=== PATIENT | male | born 1940 | race Caucasian/White ===

== ENCOUNTER → 2019-01-06 11:39 | Outpatient (CLI) | payer MEDICARE, OTHER, SELFPAY ==
--- NOTE | 2019-01-06 | DI.RAD.S_ITS ---
PROCEDURE: XR KNEE RT 3V INDICATIONS: Right knee pain TECHNIQUE: 3 views of the knee were acquired. COMPARISON: [facility], , KNEE 3V RIGHT, 03/09/2015, 11:40. FINDINGS: Bones: No fractures or dislocations. No suspicious bony lesions. 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 There is chondrocalcinosis. Osteopenia. Soft tissues: Moderate joint effusion. Vascular calcifications consistent with atherosclerosis. IMPRESSION: 1. Severe knee joint degeneration, most pronounced at the patellar femoral compartment. 2. Chondrocalcinosis. Differential diagnosis include CPPD and hyperparathyroidism. 3. Osteopenia. Dictated by: Hal Dave M.D. on 01/06/2019 at 13:11 Approved by: Hal Dave M.D. on 01/06/2019 at 13:14
== END ==
PROVIDERS: PCP Family Medicine; Visit Provider Family Medicine
DX: M25.561 Pain in right knee (principal); M17.11 Unilateral primary osteoarthritis, right knee; M11.261 Other chondrocalcinosis, right knee; M85.861 Other specified disorders of bone density and structure, right lower leg
CPT/HCPCS: 73562

== ENCOUNTER → 2019-04-21 09:04 | Outpatient (CLI) | payer MEDICARE, OTHER, SELFPAY ==
[2019-04-21 10:08] LABS: Cholesterol 127 mg/dL (140-199); HDL Cholesterol 36 mg/dL (40-60); LDL Cholesterol Calculated 71 mg/dL (<100); Triglycerides 99 mg/dL (35-150)
== END ==
PROVIDERS: PCP Family Medicine; Referring Provider Hospitalist; Visit Provider Hospitalist
DX: I25.10 Atherosclerotic heart disease of native coronary artery without angina pectoris (principal); E78.00 Pure hypercholesterolemia, unspecified
CPT/HCPCS: 36415; 80061

== ENCOUNTER 2019-04-28 11:15 | Outpatient (RCR) | payer MEDICARE, OTHER, SELFPAY ==
--- NOTE | 2019-02-22 17:54 | PT.OIE ---
Current Diagnoses Patellar tendinitis, right knee (02/22/19) Other specified enthesopathies of right lower limb, excluding foot (02/22/19) Visit Care Team Role Provider Type Eliseo Dixon MD Attending Provider Physician Primary Care Provider Specialty: [facility] Address: [address] [place] [address], [facility] [place], [address] Email: [email or web address] Physical Therapy Initial Evaluation PT-OP-A Visit Information Start: 02/22/19 16:11 Freq: Status: Active Protocol: Document 02/22/19 14:35 HH (Rec: 02/22/19 16:48 HH [email or web address]) Out-Patient Physical Therapy Visit Information Visit Information Visit Type Initial Evaluation Visit Start Time 14:35 Visit Stop Time 15:15 Total Visit Minutes 40 Visit Number 03/14 Number of BOTTOM PRESSER Visits 0 Evaluation Information Evaluation Date 02/22/19 PT-OP-B Current Condition Start: 02/22/19 16:11 Freq: Status: Active Protocol: Document 02/22/19 14:35 HH (Rec: 02/22/19 16:48 HH [email or web address]) Current Condition History of Current Condition Onset Date 3 years ago Current Complaints R knee pain, difficulty in prolonged walking, walking incline/decline. History of Current Condition Pt is a 78yo male presenting to clinic with chronic L knee pain started years ago. Pt does not recall any significant injury but stated his R knee pain started somewhere 3 years ago. He described his pain located below his knee cap and at the joint line sometimes, and felt like sharp pain as got hitting by a chair. His pain has been getting more significant and noticeable within the past year that is the most irritated after prolonged walking/ walking up or downhill. Pt has been marijuana oil/lotion at his R knee and it seems to help him a lot. Pt saw his Dr. Nguyen who believes pt has patella tendinitis. He also received X -ray screen which shows severe patellofemoral joint degeneration, chondrocalanosis and osteopenia. Prior Treatments and Tests X-ray screen which shows severe patellofemoral joint degeneration, chondrocalanosis and osteopenia. Treatment Goals Patient/Caregiver Goals 1. To walk his dog 3x/day up to 10k steps without any knee discomfort 2. Able to climb stairs/ up or downhill without knee discomfort. Personal Factors Other Personal Factors That May Effect HTN Therapy/Recovery Previous heart attack. PT-OP-C Subjective Start: 02/22/19 16:11 Freq: Status: Active Protocol: Document 02/22/19 14:35 HH (Rec: 02/22/19 16:48 HH [email or web address]) OP-PT Subjective Patient Comments Patient Comments I just want to keep my mobility as much as i can until 89 yo. Patient Questionnaires Lower Extremity Functional Scale LEFS Score 44 LEFS Impairment 40 to 59% Impaired (Score 32- 47) OP-PT Pain Assessment Location joint line Pain Location Details R knee joint Intensity 4 Scale Used Numeric (1 - 10) Description Aching,Dull Frequency Frequent Pain Aggravating Factors Exercise,Walking,Stair Climbing Pain Alleviating Factors Inactivity R patellar tendon Intensity 4 Scale Used Numeric (1 - 10) Description Aching,Dull Frequency Frequent Pain Aggravating Factors Exercise,Walking,Stair Climbing Pain Alleviating Factors Inactivity PT-OP-D Balance Start: 02/22/19 16:11 Freq: Status: Active Protocol: Document 02/22/19 14:35 HH (Rec: 02/22/19 16:48 HH [email or web address]) Balance Tests Single Limb Standing Single Limb- Right 20s Single Limb- Left 18s PT-OP-F Manual Assessment Start: 02/22/19 16:11 Freq: Status: Active Protocol: Document 02/22/19 14:35 HH (Rec: 02/22/19 16:48 HH [email or web address]) Manual Assessments Soft Tissue Assessment Soft Tissue Mobility Assessment tenderness to pressure at R lateral knee joint line and proximal patellar tendon insertion PT-OP-G Mobility & Gait Start: 02/22/19 16:11 Freq: Status: Active Protocol: Document 02/22/19 14:35 HH (Rec: 02/22/19 16:48 HH [email or web address]) OP Gait Assessment Comments Gait Comments decreased R foot pronation during midstance compared to L . PT-OP-H Neuro Start: 02/22/19 16:11 Freq: Status: Active Protocol: Document 02/22/19 14:35 HH (Rec: 02/22/19 16:48 HH [email or web address]) Deep Tendon Reflex & Clonus Assessment Deep Tendon Reflex Bilateral Achilles Deep Tendon Reflex 2+ Normal Bilateral Patellar Deep Tendon Reflex 2+ Normal PT-OP-J Posture/Palpation/Skin Start: 02/22/19 16:11 Freq: Status: Active Protocol: Document 02/22/19 14:35 HH (Rec: 02/22/19 16:48 [email or web address]) Posture Evaluation Position Standing Weight Distribution Weight Shifted Left Knee Posture (R) Genu Varus,(R) Excess Flexion Ankle/Foot Posture (R) Supinated Foot Arch (R) High Arch PT-OP-K Range of Motion Start: 02/22/19 16:11 Freq: Status: Active Protocol: Document 02/22/19 14:35 HH (Rec: 02/22/19 16:48 [email or web address]) Knee Goniometric Range of Motion Knee Left Knee ROM WFL Yes Patient Position Supine Flexion Active (degrees) 140 Extension Active (degrees) 2 Right Knee ROM WFL No Patient Position Supine Flexion Active (degrees) 135 Extension Active (degrees) 5 Knee ROM Limitations Knee ROM Limitations Pain Comments Pt reports increased discomfort and pressure at end range knee flexion and extension PT-OP-L Special Tests Start: 02/22/19 16:11 Freq: Status: Active Protocol: Document 02/22/19 14:35 HH (Rec: 02/22/19 16:48 [email or web address]) Special Tests Knee Special Tests Apley's Compression Test Results +ve R Comments lateral knee joint line pain with compression increased lateral knee joint line pain with compression + tibial ER Daniel's Sign Test Results +VE R Comments without quad contraction. Varus- 25 Degrees Test Results -ve B Varus- 0 Degrees Test Results -ve B Valgus- 25 Degrees Test Results -ve B Valgus- 0 Degrees Test Results -ve B PT-OP-M Strength Start: 02/22/19 16:11 Freq: Status: Active Protocol: Document 02/22/19 14:35 HH (Rec: 02/22/19 16:48 [email or web address]) Hip Strength Hip Manual Muscle Testing Right Flexion (L2) 5 Normal Extension (S1) 5 Normal Abduction 4+ Good+ Adduction 5 Normal Left Flexion (L2) 5 Normal Extension (S1) 5 Normal Abduction 5 Normal Adduction 5 Normal Knee Strength Knee Manual Muscle Testing Right Flexion (S2) 4+ Good+ Extension (L3) 4+ Good+ Comments did not c/o discomfort Left Flexion (S2) 4+ Good+ Extension (L3) 4+ Good+ Comments did not c/o discomfort PT-OP-Q Treatments Start: 02/22/19 16:11 Freq: Status: Active Protocol: Document 02/22/19 14:35 HH (Rec: 02/22/19 17:54 HH [email or web address]) Self-Care/Home Management Treatment Education Patient Education Body Mechanics,Posture Caregiver Education education on pt's current posture effect on mechanical pressure on R lateral knee joint compartment. PT-OP-T Assessment and Plan Start: 02/22/19 16:11 Freq: Status: Active Protocol: Document 02/22/19 14:35 HH (Rec: 02/22/19 16:48 HH [email or web address]) Physical Therapy Assessment Rehab Potential Rehabilitation Potential Excellent Evaluation Complexity Number of Personal Factors/Comorbidities 0 Number of Body Systems Impaired 1-2 Clinical Presentation at Evaluation Stable Impairments Impairments Functional Mobility,Gait,Pain, Posture,ROM,Soft Tissue Mobility,Strength Goals activity tolerance Impairment Unable to walk his dog 3x/day or 10k steps a day without pain Short Term Goal (STG) Pt will be able to walk his dog 3x/day with his dog or 10k steps a day with R knee pain no more than 4/10. STG Duration 4 weeks Cleaning Handyman Goal (LTG) Pt will be able to walk his dog 3x/day with his dog or 10k steps a day with R knee pain no more than 2/10. LTG Duration 8 weeks ROM Impairment Pt lacks of 5 degrees R knee extension and flexion Intermediate Goal (LTG) Pt will be able to reach 2 degrees for R knee extension and 140 for R knee flexion to improve his gait quality, especially during initial contact. LTG Duration 8 weeks LEFS Impairment Pt scores 44/80 for LEFS Short Term Goal (STG) Pt will score >48 (20-39% impairment) to improve his quality of life STG Duration 4 weeks Intermediate Goal (LTG) Pt will score >62 (1-19% impairment) to improve his quality of life LTG Duration 8 weeks Assessment Summary Assessment pt is a 78yo male presented to clinic with chronic R knee pain. X-ray from December shows severe patellofemoral joint degerneration, chondrocalcanosis and Osteopenia. Upon assessment, pt appears to have symmetrical and WFL hip and knee muscle strength and single leg balance. Postural assessment shows R knee valgus with lack of R knee extension in standing position, along with increased WB on lateral side of R foot (in supinated position), which leads to his gait with insufficient R foot pronation during midstance. He has limited R knee AROM (5- 135 degrees) , L = 2-140 degrees. His R lateral joint line pain was also reproduced with Appley's compression test and patellofemoral pain from Alejandro's test which both indicate possible degenerative joint changes. Pt will benefit from skilled therapy to restore his R knee ROM, gait efficiency and B LE strength in order to return to his daily 10k steps routine in pain free. Physical Therapy Plan Frequency and Duration Frequency of Treatment 2x/Week Duration of Treatment 8 weeks Plan of Care Start Date 02/22/19 Plan of Care End Date 04/23/19 Therapeutic Interventions Therapeutic Interventions Balance Training,Coordination Training,Gait Training,Home Exercise Program,Joint Mobilizations,Manual Therapy, Neuromuscular Re-education, Patient/Caregiver Education, Self-Care/Home Management,Soft Tissue Mobilization,Taping, Therapeutic Activities, Therapeutic Exercises Modalities Cold Pack/Ice Massage,Electric Stimulation,Hot Packs, Infrared Therapy,Ultrasound Next Visit Focus/Plan Next Note Type Treatment Note Next Visit Plan reassess ankle ROM and hip ROM check shoeswear, patellar grind R knee TKE and flexion 6MWT
--- NOTE | 2019-02-22 17:54 | PT.OPPOC ---
Physical, Occupational & Speech Therapy At [facility] Current Diagnoses Patellar tendinitis, right knee (02/22/19) Other specified enthesopathies of right lower limb, excluding foot (02/22/19) Visit Care Team Role Provider Type Eliseo Dixon MD Attending Provider Physician Primary Care Provider Specialty: [facility] Address: [address] [place] [address], [facility] [place], [place], [facility] Email: [email or web address] Plan Of Care PT-OP-T Assessment and Plan Start: 02/22/19 16:11 Freq: Status: Active Protocol: Document 02/22/19 14:35 HH (Rec: 02/22/19 16:48 HH [email or web address]) Physical Therapy Assessment Rehab Potential Rehabilitation Potential Excellent Evaluation Complexity Number of Personal Factors/Comorbidities 0 Number of Body Systems Impaired 1-2 Clinical Presentation at Evaluation Stable Impairments Impairments Functional Mobility,Gait,Pain, Posture,ROM,Soft Tissue Mobility,Strength Goals activity tolerance Impairment Unable to walk his dog 3x/day or 10k steps a day without pain Short Term Goal (STG) Pt will be able to walk his dog 3x/day with his dog or 10k steps a day with R knee pain no more than 4/10. STG Duration 4 weeks Snf Goal (LTG) Pt will be able to walk his dog 3x/day with his dog or 10k steps a day with R knee pain no more than 2/10. LTG Duration 8 weeks ROM Impairment Pt lacks of 5 degrees R knee extension and flexion Snf Goal (LTG) Pt will be able to reach 2 degrees for R knee extension and 140 for R knee flexion to improve his gait quality, especially during initial contact. LTG Duration 8 weeks LEFS Impairment Pt scores 44/80 for LEFS Short Term Goal (STG) Pt will score >48 (20-39% impairment) to improve his quality of life STG Duration 4 weeks Cloth Cutting Machine Operator Goal (LTG) Pt will score >62 (1-19% impairment) to improve his quality of life LTG Duration 8 weeks Assessment Summary Assessment pt is a 78yo male presented to clinic with chronic R knee pain. X-ray from December shows severe patellofemoral joint degerneration, chondrocalcanosis and Osteopenia. Upon assessment, pt appears to have symmetrical and WFL hip and knee muscle strength and single leg balance. Postural assessment shows R knee valgus with lack of R knee extension in standing position, along with increased WB on lateral side of R foot (in supinated position), which leads to his gait with insufficient R foot pronation during midstance. He has limited R knee AROM (5- 135 degrees) , L = 2-140 degrees. His R lateral joint line pain was also reproduced with Appley's compression test and patellofemoral pain from Alejandro's test which both indicate possible degenerative joint changes. Pt will benefit from skilled therapy to restore his R knee ROM, gait efficiency and B LE strength in order to return to his daily 10k steps routine in pain free. Physical Therapy Plan Frequency and Duration Frequency of Treatment 2x/Week Duration of Treatment 8 weeks Plan of Care Start Date 02/22/19 Plan of Care End Date 04/23/19 Therapeutic Interventions Therapeutic Interventions Balance Training,Coordination Training,Gait Training,Home Exercise Program,Joint Mobilizations,Manual Therapy, Neuromuscular Re-education, Patient/Caregiver Education, Self-Care/Home Management,Soft Tissue Mobilization,Taping, Therapeutic Activities, Therapeutic Exercises Modalities Cold Pack/Ice Massage,Electric Stimulation,Hot Packs, Infrared Therapy,Ultrasound Next Visit Focus/Plan Next Note Type Treatment Note Next Visit Plan reassess ankle ROM and hip ROM check shoeswear, patellar grind R knee TKE and flexion 6MWT Plan of Care Dates Plan of Care Start Date 02/22/19 Plan of Care End Date 04/23/19 Electronically Signed by: Doug Ayers PT 02/22/19 [id number] Please Sign and Return: I have reviewed this Plan of Care and certify that the skilled therapy services above are required to meet the patient?s needs. Physician Signature Date Printed Name and Credentials Clinical Instructor Signature Printed Name and Credentials
--- NOTE | 2019-02-25 16:23 | PT.OTN ---
Current Diagnoses Patellar tendinitis, right knee (02/25/19) Other specified enthesopathies of right lower limb, excluding foot (02/25/19) Physical Therapy Treatment Note PT-OP-A Visit Information Start: 02/22/19 16:11 Freq: Status: Active Protocol: Document 02/25/19 14:34 HH (Rec: 02/25/19 16:23 [id number]) Out-Patient Physical Therapy Visit Information Visit Information Visit Type Treatment Note Visit Start Time 14:34 Visit Stop Time 15:15 Total Visit Minutes 41 Visit Number 04/14 Number of FOOD QUALITY TECHNICIAN Visits 0 PT-OP-B Current Condition Start: 02/22/19 16:11 Freq: Status: Active Protocol: Document 02/22/19 14:35 HH (Rec: 02/22/19 16:48 HH [email or web address]) Current Condition History of Current Condition Onset Date 3 years ago Current Complaints R knee pain, difficulty in prolonged walking, walking incline/decline. History of Current Condition Pt is a 78yo male presenting to clinic with chronic L knee pain started years ago. Pt does not recall any significant injury but stated his R knee pain started somewhere 3 years ago. He described his pain located below his knee cap and at the joint line sometimes, and felt like sharp pain as got hitting by a chair. His pain has been getting more significant and noticeable within the past year that is the most irritated after prolonged walking/ walking up or downhill. Pt has been marijuana oil/lotion at his R knee and it seems to help him a lot. Pt saw his Dr. Nguyen who believes pt has patella tendinitis. He also received X -ray screen which shows severe patellofemoral joint degeneration, chondrocalanosis and osteopenia. Prior Treatments and Tests X-ray screen which shows severe patellofemoral joint degeneration, chondrocalanosis and osteopenia. Treatment Goals Patient/Caregiver Goals 1. To walk his dog 3x/day up to 10k steps without any knee discomfort 2. Able to climb stairs/ up or downhill without knee discomfort. Personal Factors Other Personal Factors That May Effect HTN Therapy/Recovery Previous heart attack. PT-OP-C Subjective Start: 02/22/19 16:11 Freq: Status: Active Protocol: Document 02/25/19 14:34 HH (Rec: 02/25/19 16:23 [id number]) OP-PT Subjective Patient Comments Patient Comments I was walking up and downhill today and it bothers my R knee PT-OP-D Balance Start: 02/22/19 16:11 Freq: Status: Active Protocol: Document 02/22/19 14:35 HH (Rec: 02/22/19 16:48 [email or web address]) Balance Tests Single Limb Standing Single Limb- Right 20s Single Limb- Left 18s PT-OP-F Manual Assessment Start: 02/22/19 16:11 Freq: Status: Active Protocol: Document 02/22/19 14:35 HH (Rec: 02/22/19 16:48 HH [email or web address]) Manual Assessments Soft Tissue Assessment Soft Tissue Mobility Assessment tenderness to pressure at R lateral knee joint line and proximal patellar tendon insertion PT-OP-G Mobility & Gait Start: 02/22/19 16:11 Freq: Status: Active Protocol: Document 02/22/19 14:35 HH (Rec: 02/22/19 16:48 [email or web address]) OP Gait Assessment Comments Gait Comments decreased R foot pronation during midstance compared to L . PT-OP-H Neuro Start: 02/22/19 16:11 Freq: Status: Active Protocol: Document 02/22/19 14:35 HH (Rec: 02/22/19 16:48 [email or web address]) Deep Tendon Reflex & Clonus Assessment Deep Tendon Reflex Bilateral Achilles Deep Tendon Reflex 2+ Normal Bilateral Patellar Deep Tendon Reflex 2+ Normal PT-OP-J Posture/Palpation/Skin Start: 02/22/19 16:11 Freq: Status: Active Protocol: Document 02/22/19 14:35 HH (Rec: 02/22/19 16:48 [email or web address]) Posture Evaluation Position Standing Weight Distribution Weight Shifted Left Knee Posture (R) Genu Varus,(R) Excess Flexion Ankle/Foot Posture (R) Supinated Foot Arch (R) High Arch PT-OP-K Range of Motion Start: 02/22/19 16:11 Freq: Status: Active Protocol: Document 02/25/19 14:34 HH (Rec: 02/25/19 16:23 [id number]) Hip Goniometric Range of Motion Hip Right Active Internal Rotation 35 External Rotation 45 Left Active Internal Rotation 45 External Rotation 42 Hip ROM Limitations Hip ROM Limitations Muscle Tone,Pain Comments muscle guarding and pain at end range of L hip IR. PT-OP-L Special Tests Start: 02/22/19 16:11 Freq: Status: Active Protocol: Document 02/25/19 14:34 (Rec: 02/25/19 16:23 [email or web address]) Special Tests Foot/Ankle Special Tests calf raise Test Results SL calf raise L=21reps, R= 12reps PT-OP-M Strength Start: 02/22/19 16:11 Freq: Status: Active Protocol: Document 02/22/19 14:35 HH (Rec: 02/22/19 16:48 [email or web address]) Hip Strength Hip Manual Muscle Testing Right Flexion (L2) 5 Normal Extension (S1) 5 Normal Abduction 4+ Good+ Adduction 5 Normal Left Flexion (L2) 5 Normal Extension (S1) 5 Normal Abduction 5 Normal Adduction 5 Normal Knee Strength Knee Manual Muscle Testing Right Flexion (S2) 4+ Good+ Extension (L3) 4+ Good+ Comments did not c/o discomfort Left Flexion (S2) 4+ Good+ Extension (L3) 4+ Good+ Comments did not c/o discomfort PT-OP-Q Treatments Start: 02/22/19 16:11 Freq: Status: Active Protocol: Document 02/25/19 14:34 (Rec: 02/25/19 16:23 [email or web address]) Therapeutic Exercises Supine Exercises SLR Supine Exercise Name R foot turning machine operator Side right Reps/Minutes 8 x2 Comments cues on hip add and vmo contractoin Prone Exercises quad stretch Side right Equipment Used belt Reps/Minutes 30 secs x 5 Hip IR Prone Exercise Name AROM hip IR Side right Reps/Minutes 12 x2 Standing Exercises calf raises Standing Exercise Name B concentric calf raise and single leg eccentric descent Side right Equipment Used stair Reps/Minutes 10 x 2 Manual Therapy Treatment Soft Tissue Mobilization R quad Mobilization Type Sustained Pressure,Trigger Point Release Intensity/Depth Moderate Body Position Standing Comments f/b quad stretch with MET R gluteal Mobilization Type Sustained Pressure,Trigger Point Release Intensity/Depth Moderate Body Position Prone Comments f/b MET hip IR and ER PT-OP-T Assessment and Plan Start: 02/22/19 16:11 Freq: Status: Active Protocol: Document 02/25/19 14:34 (Rec: 02/25/19 16:23 [email or web address]) Physical Therapy Assessment Goals activity tolerance Impairment Unable to walk his dog 3x/day or 10k steps a day without pain Short Term Goal (STG) Pt will be able to walk his dog 3x/day with his dog or 10k steps a day with R knee pain no more than 4/10. STG Duration 4 weeks Fpc Goal (LTG) Pt will be able to walk his dog 3x/day with his dog or 10k steps a day with R knee pain no more than 2/10. LTG Duration 8 weeks ROM Impairment Pt lacks of 5 degrees R knee extension and flexion Form Tamper Goal (LTG) Pt will be able to reach 2 degrees for R knee extension and 140 for R knee flexion to improve his gait quality, especially during initial contact. LTG Duration 8 weeks LEFS Impairment Pt scores 44/80 for LEFS Short Term Goal (STG) Pt will score >48 (20-39% impairment) to improve his quality of life STG Duration 4 weeks Form Tamper Goal (LTG) Pt will score >62 (1-19% impairment) to improve his quality of life LTG Duration 8 weeks Assessment Summary Assessment Cont assessment. Pt has limited R hip IR with noticeable pain at end range and significant muscle wekaness at R calfs which indicate his strength of medial muscle line strength deficiency (hip add, medial quad and medial calf.) Physical Therapy Plan Next Visit Focus/Plan Next Note Type Treatment Note Next Visit Plan assess tx tolerance medial line strengthening. hip IR strengthening R knee TKE.
--- NOTE | 2019-03-01 15:26 | PT.OTN ---
Current Diagnoses Patellar tendinitis, right knee (03/01/19) Other specified enthesopathies of right lower limb, excluding foot (03/01/19) Physical Therapy Treatment Note PT-OP-A Visit Information Start: 02/22/19 16:11 Freq: Status: Active Protocol: Document 03/01/19 14:32 HH (Rec: 03/01/19 15:26 HH [email or web address]) Out-Patient Physical Therapy Visit Information Visit Information Visit Type Treatment Note Visit Start Time 14:32 Visit Stop Time 15:15 Total Visit Minutes 43 Visit Number 05/12 Number of DINKEY MOTOR OPERATOR Visits 0 PT-OP-B Current Condition Start: 02/22/19 16:11 Freq: Status: Active Protocol: Document 02/22/19 14:35 HH (Rec: 02/22/19 16:48 HH [email or web address]) Current Condition History of Current Condition Onset Date 3 years ago Current Complaints R knee pain, difficulty in prolonged walking, walking incline/decline. History of Current Condition Pt is a 78yo male presenting to clinic with chronic L knee pain started years ago. Pt does not recall any significant injury but stated his R knee pain started somewhere 3 years ago. He described his pain located below his knee cap and at the joint line sometimes, and felt like sharp pain as got hitting by a chair. His pain has been getting more significant and noticeable within the past year that is the most irritated after prolonged walking/ walking up or downhill. Pt has been marijuana oil/lotion at his R knee and it seems to help him a lot. Pt saw his Dr. Nguyen who believes pt has patella tendinitis. He also received X -ray screen which shows severe patellofemoral joint degeneration, chondrocalanosis and osteopenia. Prior Treatments and Tests X-ray screen which shows severe patellofemoral joint degeneration, chondrocalanosis and osteopenia. Treatment Goals Patient/Caregiver Goals 1. To walk his dog 3x/day up to 10k steps without any knee discomfort 2. Able to climb stairs/ up or downhill without knee discomfort. Personal Factors Other Personal Factors That May Effect HTN Therapy/Recovery Previous heart attack. PT-OP-C Subjective Start: 02/22/19 16:11 Freq: Status: Active Protocol: Document 03/01/19 14:32 HH (Rec: 03/01/19 15:26 HH [email or web address]) OP-PT Subjective Patient Comments Patient Comments Nicole been doing my exercises. Terminal knee extension tends to bother my knee and my R calf tends to fatigue quite fast. Im still walking my dog 3x/day but I only felt discomfort once during the past few days. Patient Reported Progress Improving PT-OP-D Balance Start: 02/22/19 16:11 Freq: Status: Active Protocol: Document 02/22/19 14:35 HH (Rec: 02/22/19 16:48 HH [email or web address]) Balance Tests Single Limb Standing Single Limb- Right 20s Single Limb- Left 18s PT-OP-F Manual Assessment Start: 02/22/19 16:11 Freq: Status: Active Protocol: Document 02/22/19 14:35 HH (Rec: 02/22/19 16:48 HH [email or web address]) Manual Assessments Soft Tissue Assessment Soft Tissue Mobility Assessment tenderness to pressure at R lateral knee joint line and proximal patellar tendon insertion PT-OP-G Mobility & Gait Start: 02/22/19 16:11 Freq: Status: Active Protocol: Document 02/22/19 14:35 HH (Rec: 02/22/19 16:48 HH [email or web address]) OP Gait Assessment Comments Gait Comments decreased R foot pronation during midstance compared to L . PT-OP-H Neuro Start: 02/22/19 16:11 Freq: Status: Active Protocol: Document 02/22/19 14:35 HH (Rec: 02/22/19 16:48 HH [email or web address]) Deep Tendon Reflex & Clonus Assessment Deep Tendon Reflex Bilateral Achilles Deep Tendon Reflex 2+ Normal Bilateral Patellar Deep Tendon Reflex 2+ Normal PT-OP-J Posture/Palpation/Skin Start: 02/22/19 16:11 Freq: Status: Active Protocol: Document 02/22/19 14:35 HH (Rec: 02/22/19 16:48 HH [email or web address]) Posture Evaluation Position Standing Weight Distribution Weight Shifted Left Knee Posture (R) Genu Varus,(R) Excess Flexion Ankle/Foot Posture (R) Supinated Foot Arch (R) High Arch PT-OP-K Range of Motion Start: 02/22/19 16:11 Freq: Status: Active Protocol: Document 02/25/19 14:34 HH (Rec: 02/25/19 16:23 HH [id number]) Hip Goniometric Range of Motion Hip Right Active Internal Rotation 35 External Rotation 45 Left Active Internal Rotation 45 External Rotation 42 Hip ROM Limitations Hip ROM Limitations Muscle Tone,Pain Comments muscle guarding and pain at end range of L hip IR. PT-OP-L Special Tests Start: 02/22/19 16:11 Freq: Status: Active Protocol: Document 02/25/19 14:34 HH (Rec: 02/25/19 16:23 HH [id number]) Special Tests Foot/Ankle Special Tests calf raise Test Results SL calf raise L=21reps, R= 12reps PT-OP-M Strength Start: 02/22/19 16:11 Freq: Status: Active Protocol: Document 02/22/19 14:35 HH (Rec: 02/22/19 16:48 HH [email or web address]) Hip Strength Hip Manual Muscle Testing Right Flexion (L2) 5 Normal Extension (S1) 5 Normal Abduction 4+ Good+ Adduction 5 Normal Left Flexion (L2) 5 Normal Extension (S1) 5 Normal Abduction 5 Normal Adduction 5 Normal Knee Strength Knee Manual Muscle Testing Right Flexion (S2) 4+ Good+ Extension (L3) 4+ Good+ Comments did not c/o discomfort Left Flexion (S2) 4+ Good+ Extension (L3) 4+ Good+ Comments did not c/o discomfort PT-OP-Q Treatments Start: 02/22/19 16:11 Freq: Status: Active Protocol: Document 03/01/19 14:32 HH (Rec: 03/01/19 15:26 HH [email or web address]) Cardio Equipment Bicycle (Upright) Duration (Minutes) 6 Resistance 5 Therapeutic Exercises Supine Exercises ball squeeze Supine Exercise Name bridging with ball squeeze Side bilateral Reps/Minutes 5s hold at top x 8 x2 SLR Supine Exercise Name R foot turning lathe tender Side right Reps/Minutes 8 x2 Comments cues on hip add and vmo contractoin Prone Exercises quad stretch Side right Equipment Used PT's assistance Reps/Minutes 30 secs x 5 Hip IR Prone Exercise Name AROM hip IR with manual resistance Side right Reps/Minutes 8 x3 Manual Therapy Treatment Soft Tissue Mobilization R lateral quad, HS, IT band Body Location w/ rolling pin Mobilization Type Rolling Intensity/Depth Moderate Body Position Sidelying Comments tenderness to pressure noted at R lateral quad/ HS R quad Mobilization Type Sustained Pressure,Trigger Point Release Intensity/Depth Moderate Body Position Standing Comments f/b quad stretch with MET Joint Mobilizations R tibial IR Direction IR of R tibia Grade II Body Position Supine Reps/Duration 4 mins Manual Techniques MET for R hip IR/ER Body Position Prone Reps/Duration 5 mins Comments end range to end range PT-OP-T Assessment and Plan Start: 02/22/19 16:11 Freq: Status: Active Protocol: Document 03/01/19 14:32 HH (Rec: 03/01/19 15:26 HH [email or web address]) Physical Therapy Assessment Goals activity tolerance Impairment Unable to walk his dog 3x/day or 10k steps a day without pain Short Term Goal (STG) Pt will be able to walk his dog 3x/day with his dog or 10k steps a day with R knee pain no more than 4/10. STG Duration 4 weeks Graphic Design Assistant Goal (LTG) Pt will be able to walk his dog 3x/day with his dog or 10k steps a day with R knee pain no more than 2/10. LTG Duration 8 weeks ROM Impairment Pt lacks of 5 degrees R knee extension and flexion Fpc Goal (LTG) Pt will be able to reach 2 degrees for R knee extension and 140 for R knee flexion to improve his gait quality, especially during initial contact. LTG Duration 8 weeks LEFS Impairment Pt scores 44/80 for LEFS Short Term Goal (STG) Pt will score >48 (20-39% impairment) to improve his quality of life STG Duration 4 weeks Fpc Goal (LTG) Pt will score >62 (1-19% impairment) to improve his quality of life LTG Duration 8 weeks Assessment Summary Assessment Pt showed reduced muscle guarding and improved movement control of R hip ER/IR. Less muscle guarding during quad stretch. There's tenderness to pressure with R lateral quad and HS. Added hip add ball squeeze with bridging. Physical Therapy Plan Next Visit Focus/Plan Next Note Type Treatment Note Next Visit Plan assess tx tolerance medial line strengthening. hip IR strengthening R knee TKE.
--- NOTE | 2019-03-04 16:26 | PT.OTN ---
Current Diagnoses Patellar tendinitis, right knee (03/01/19) Other specified enthesopathies of right lower limb, excluding foot (03/01/19) Physical Therapy Treatment Note PT-OP-A Visit Information Start: 02/22/19 16:11 Freq: Status: Active Protocol: Document 03/04/19 14:32 (Rec: 03/04/19 16:26 [id number]) Out-Patient Physical Therapy Visit Information Visit Information Visit Type Treatment Note Visit Start Time 14:32 Visit Stop Time 15:15 Total Visit Minutes 43 Visit Number 06/12 Number of CYLINDER BATCHER Visits 0 PT-OP-B Current Condition Start: 02/22/19 16:11 Freq: Status: Active Protocol: Document 02/22/19 14:35 HH (Rec: 02/22/19 16:48 [email or web address]) Current Condition History of Current Condition Onset Date 3 years ago Current Complaints R knee pain, difficulty in prolonged walking, walking incline/decline. History of Current Condition Pt is a 78yo male presenting to clinic with chronic L knee pain started years ago. Pt does not recall any significant injury but stated his R knee pain started somewhere 3 years ago. He described his pain located below his knee cap and at the joint line sometimes, and felt like sharp pain as got hitting by a chair. His pain has been getting more significant and noticeable within the past year that is the most irritated after prolonged walking/ walking up or downhill. Pt has been marijuana oil/lotion at his R knee and it seems to help him a lot. Pt saw his Dr. Nguyen who believes pt has patella tendinitis. He also received X -ray screen which shows severe patellofemoral joint degeneration, chondrocalanosis and osteopenia. Prior Treatments and Tests X-ray screen which shows severe patellofemoral joint degeneration, chondrocalanosis and osteopenia. Treatment Goals Patient/Caregiver Goals 1. To walk his dog 3x/day up to 10k steps without any knee discomfort 2. Able to climb stairs/ up or downhill without knee discomfort. Personal Factors Other Personal Factors That May Effect HTN Therapy/Recovery Previous heart attack. PT-OP-C Subjective Start: 02/22/19 16:11 Freq: Status: Active Protocol: Document 03/04/19 14:32 (Rec: 01/10/20 16:26 HH [id number]) OP-PT Subjective Patient Comments Patient Comments Its still around the same for my R knee and i felt it usually after downhill walking and towards the end of the day. Patient Reported Progress Same PT-OP-D Balance Start: 02/22/19 16:11 Freq: Status: Active Protocol: Document 02/22/19 14:35 HH (Rec: 02/22/19 16:48 HH [email or web address]) Balance Tests Single Limb Standing Single Limb- Right 20s Single Limb- Left 18s PT-OP-F Manual Assessment Start: 02/22/19 16:11 Freq: Status: Active Protocol: Document 02/22/19 14:35 HH (Rec: 02/22/19 16:48 HH [email or web address]) Manual Assessments Soft Tissue Assessment Soft Tissue Mobility Assessment tenderness to pressure at R lateral knee joint line and proximal patellar tendon insertion PT-OP-G Mobility & Gait Start: 02/22/19 16:11 Freq: Status: Active Protocol: Document 02/22/19 14:35 HH (Rec: 02/22/19 16:48 HH [email or web address]) OP Gait Assessment Comments Gait Comments decreased R foot pronation during midstance compared to L . PT-OP-H Neuro Start: 02/22/19 16:11 Freq: Status: Active Protocol: Document 02/22/19 14:35 HH (Rec: 02/22/19 16:48 HH [email or web address]) Deep Tendon Reflex & Clonus Assessment Deep Tendon Reflex Bilateral Achilles Deep Tendon Reflex 2+ Normal Bilateral Patellar Deep Tendon Reflex 2+ Normal PT-OP-J Posture/Palpation/Skin Start: 02/22/19 16:11 Freq: Status: Active Protocol: Document 02/22/19 14:35 HH (Rec: 02/22/19 16:48 HH [email or web address]) Posture Evaluation Position Standing Weight Distribution Weight Shifted Left Knee Posture (R) Genu Varus,(R) Excess Flexion Ankle/Foot Posture (R) Supinated Foot Arch (R) High Arch PT-OP-K Range of Motion Start: 02/22/19 16:11 Freq: Status: Active Protocol: Document 02/25/19 14:34 HH (Rec: 02/25/19 16:23 HH [id number]) Hip Goniometric Range of Motion Hip Right Active Internal Rotation 35 External Rotation 45 Left Active Internal Rotation 45 External Rotation 42 Hip ROM Limitations Hip ROM Limitations Muscle Tone,Pain Comments muscle guarding and pain at end range of L hip IR. PT-OP-L Special Tests Start: 02/22/19 16:11 Freq: Status: Active Protocol: Document 02/25/19 14:34 HH (Rec: 02/25/19 16:23 HH [id number]) Special Tests Foot/Ankle Special Tests calf raise Test Results SL calf raise L=21reps, R= 12reps PT-OP-M Strength Start: 02/22/19 16:11 Freq: Status: Active Protocol: Document 02/22/19 14:35 HH (Rec: 02/22/19 16:48 [email or web address]) Hip Strength Hip Manual Muscle Testing Right Flexion (L2) 5 Normal Extension (S1) 5 Normal Abduction 4+ Good+ Adduction 5 Normal Left Flexion (L2) 5 Normal Extension (S1) 5 Normal Abduction 5 Normal Adduction 5 Normal Knee Strength Knee Manual Muscle Testing Right Flexion (S2) 4+ Good+ Extension (L3) 4+ Good+ Comments did not c/o discomfort Left Flexion (S2) 4+ Good+ Extension (L3) 4+ Good+ Comments did not c/o discomfort PT-OP-Q Treatments Start: 02/22/19 16:11 Freq: Status: Active Protocol: Document 03/04/19 14:32 HH (Rec: 03/04/19 16:26 [id number]) Cardio Equipment Bicycle (Upright) Duration (Minutes) 5 Resistance 5 Therapeutic Exercises Supine Exercises hamstring stretch Side right Equipment Used belt Reps/Minutes 10 secs hold x5 Standing Exercises hip add Standing Exercise Name with sliders Side bilateral Reps/Minutes 6 mins Comments B extended knees. standing knee ext Standing Exercise Name foot turning sander operator Side right Equipment Used level 2 band Reps/Minutes 3 sec hold x8 x 2 Comments pain reported with foot straight Manual Therapy Treatment Soft Tissue Mobilization R lateral quad, HS, IT band Body Location w/ rolling pin Mobilization Type Rolling Intensity/Depth Moderate Body Position Sidelying Comments tenderness to pressure noted at R lateral quad/ HS R quad Mobilization Type Sustained Pressure,Trigger Point Release Intensity/Depth Moderate Body Position Standing Comments f/b quad stretch with MET Joint Mobilizations patella glide Joint medial and lateral Grade II Body Position Supine Reps/Duration 4 mins R tibial IR Direction IR of R tibia Grade II Body Position Supine Reps/Duration 4 mins Taping R patella tendon Type of Tape Kinesio Tape Comments patella stabilization PT-OP-T Assessment and Plan Start: 02/22/19 16:11 Freq: Status: Active Protocol: Document 03/04/19 14:32 HH (Rec: 03/04/19 16:26 [id number]) Physical Therapy Assessment Goals activity tolerance Impairment Unable to walk his dog 3x/day or 10k steps a day without pain Short Term Goal (STG) Pt will be able to walk his dog 3x/day with his dog or 10k steps a day with R knee pain no more than 4/10. STG Duration 4 weeks Inker Goal (LTG) Pt will be able to walk his dog 3x/day with his dog or 10k steps a day with R knee pain no more than 2/10. LTG Duration 8 weeks ROM Impairment Pt lacks of 5 degrees R knee extension and flexion Inker Goal (LTG) Pt will be able to reach 2 degrees for R knee extension and 140 for R knee flexion to improve his gait quality, especially during initial contact. LTG Duration 8 weeks LEFS Impairment Pt scores 44/80 for LEFS Short Term Goal (STG) Pt will score >48 (20-39% impairment) to improve his quality of life STG Duration 4 weeks Group Home Goal (LTG) Pt will score >62 (1-19% impairment) to improve his quality of life LTG Duration 8 weeks Assessment Summary Assessment Pt cont to have discomfort with TKE, compression on patellafemoral joint, medial/ lateral glide. Symptoms releived with standing TKE with foot turning sander operator (VMO biased ). KT tape applied for patella stabilization. Physical Therapy Plan Next Visit Focus/Plan Next Note Type Treatment Note Next Visit Plan assess tx tolerance and KT application medial line strengthening. hip IR strengthening R knee TKE.
--- NOTE | 2019-03-08 12:16 | PT.OTN ---
Current Diagnoses Patellar tendinitis, right knee (03/08/19) Other specified enthesopathies of right lower limb, excluding foot (03/08/19) Physical Therapy Treatment Note PT-OP-A Visit Information Start: 02/22/19 16:11 Freq: Status: Active Protocol: Document 03/08/19 10:35 HH (Rec: 03/08/19 12:16 [id number]) Out-Patient Physical Therapy Visit Information Visit Information Visit Type Treatment Note Visit Start Time 10:35 Visit Stop Time 11:20 Total Visit Minutes 45 Visit Number 07/12 Number of FUNCTIONAL SUPPORT ANALYST Visits 0 PT-OP-B Current Condition Start: 02/22/19 16:11 Freq: Status: Active Protocol: Document 02/22/19 14:35 HH (Rec: 02/22/19 16:48 HH [email or web address]) Current Condition History of Current Condition Onset Date 3 years ago Current Complaints R knee pain, difficulty in prolonged walking, walking incline/decline. History of Current Condition Pt is a 78yo male presenting to clinic with chronic L knee pain started years ago. Pt does not recall any significant injury but stated his R knee pain started somewhere 3 years ago. He described his pain located below his knee cap and at the joint line sometimes, and felt like sharp pain as got hitting by a chair. His pain has been getting more significant and noticeable within the past year that is the most irritated after prolonged walking/ walking up or downhill. Pt has been marijuana oil/lotion at his R knee and it seems to help him a lot. Pt saw his Dr. Nguyen who believes pt has patella tendinitis. He also received X -ray screen which shows severe patellofemoral joint degeneration, chondrocalanosis and osteopenia. Prior Treatments and Tests X-ray screen which shows severe patellofemoral joint degeneration, chondrocalanosis and osteopenia. Treatment Goals Patient/Caregiver Goals 1. To walk his dog 3x/day up to 10k steps without any knee discomfort 2. Able to climb stairs/ up or downhill without knee discomfort. Personal Factors Other Personal Factors That May Effect HTN Therapy/Recovery Previous heart attack. PT-OP-C Subjective Start: 02/22/19 16:11 Freq: Status: Active Protocol: Document 03/08/19 10:35 HH (Rec: 01/14/20 12:16 HH [id number]) OP-PT Subjective Patient Comments Patient Comments I stopped using the pain relief oil since i had the KT on from last time. Patient Reported Progress Improving PT-OP-D Balance Start: 02/22/19 16:11 Freq: Status: Active Protocol: Document 02/22/19 14:35 HH (Rec: 02/22/19 16:48 HH [email or web address]) Balance Tests Single Limb Standing Single Limb- Right 20s Single Limb- Left 18s PT-OP-F Manual Assessment Start: 02/22/19 16:11 Freq: Status: Active Protocol: Document 02/22/19 14:35 HH (Rec: 02/22/19 16:48 HH [email or web address]) Manual Assessments Soft Tissue Assessment Soft Tissue Mobility Assessment tenderness to pressure at R lateral knee joint line and proximal patellar tendon insertion PT-OP-G Mobility & Gait Start: 02/22/19 16:11 Freq: Status: Active Protocol: Document 02/22/19 14:35 HH (Rec: 02/22/19 16:48 HH [email or web address]) OP Gait Assessment Comments Gait Comments decreased R foot pronation during midstance compared to L . PT-OP-H Neuro Start: 02/22/19 16:11 Freq: Status: Active Protocol: Document 02/22/19 14:35 HH (Rec: 02/22/19 16:48 HH [email or web address]) Deep Tendon Reflex & Clonus Assessment Deep Tendon Reflex Bilateral Achilles Deep Tendon Reflex 2+ Normal Bilateral Patellar Deep Tendon Reflex 2+ Normal PT-OP-J Posture/Palpation/Skin Start: 02/22/19 16:11 Freq: Status: Active Protocol: Document 02/22/19 14:35 HH (Rec: 02/22/19 16:48 HH [email or web address]) Posture Evaluation Position Standing Weight Distribution Weight Shifted Left Knee Posture (R) Genu Varus,(R) Excess Flexion Ankle/Foot Posture (R) Supinated Foot Arch (R) High Arch PT-OP-K Range of Motion Start: 02/22/19 16:11 Freq: Status: Active Protocol: Document 02/25/19 14:34 HH (Rec: 02/25/19 16:23 HH [id number]) Hip Goniometric Range of Motion Hip Right Active Internal Rotation 35 External Rotation 45 Left Active Internal Rotation 45 External Rotation 42 Hip ROM Limitations Hip ROM Limitations Muscle Tone,Pain Comments muscle guarding and pain at end range of L hip IR. PT-OP-L Special Tests Start: 02/22/19 16:11 Freq: Status: Active Protocol: Document 02/25/19 14:34 HH (Rec: 02/25/19 16:23 HH [id number]) Special Tests Foot/Ankle Special Tests calf raise Test Results SL calf raise L=21reps, R= 12reps PT-OP-M Strength Start: 02/22/19 16:11 Freq: Status: Active Protocol: Document 02/22/19 14:35 HH (Rec: 02/22/19 16:48 HH [email or web address]) Hip Strength Hip Manual Muscle Testing Right Flexion (L2) 5 Normal Extension (S1) 5 Normal Abduction 4+ Good+ Adduction 5 Normal Left Flexion (L2) 5 Normal Extension (S1) 5 Normal Abduction 5 Normal Adduction 5 Normal Knee Strength Knee Manual Muscle Testing Right Flexion (S2) 4+ Good+ Extension (L3) 4+ Good+ Comments did not c/o discomfort Left Flexion (S2) 4+ Good+ Extension (L3) 4+ Good+ Comments did not c/o discomfort PT-OP-Q Treatments Start: 02/22/19 16:11 Freq: Status: Active Protocol: Document 03/08/19 10:35 HH (Rec: 03/08/19 12:16 HH [id number]) Cardio Equipment Bicycle (Upright) Duration (Minutes) 5 Resistance 5 Therapeutic Exercises Prone Exercises Hip IR Prone Exercise Name AROM hip IR with manual resistance Side right Reps/Minutes 10 x3 Standing Exercises RDL Standing Exercise Name against wall Side right Reps/Minutes 10 x2 Comments cues on soft knee and neutral spine standing knee ext Standing Exercise Name neutral position, followed by single leg stance with support Side right Equipment Used level 2 band Reps/Minutes 3 sec hold x8 x 2, 15 times after SLS Comments pain free Manual Therapy Treatment Joint Mobilizations patella glide Joint medial and lateral Grade II Body Position Supine Reps/Duration 4 mins R tibial IR Direction IR of R tibia Grade II Body Position Supine Reps/Duration 4 mins Taping R patella tendon Type of Tape Kinesio Tape Comments patella stabilization Manual Techniques MET for R hip IR/ER Body Position Prone Reps/Duration 5 mins Comments end range to end range PT-OP-T Assessment and Plan Start: 02/22/19 16:11 Freq: Status: Active Protocol: Document 03/08/19 10:35 (Rec: 03/08/19 12:16 [id number]) Physical Therapy Assessment Goals activity tolerance Impairment Unable to walk his dog 3x/day or 10k steps a day without pain Short Term Goal (STG) Pt will be able to walk his dog 3x/day with his dog or 10k steps a day with R knee pain no more than 4/10. STG Duration 4 weeks Forklift Driver Goal (LTG) Pt will be able to walk his dog 3x/day with his dog or 10k steps a day with R knee pain no more than 2/10. LTG Duration 8 weeks ROM Impairment Pt lacks of 5 degrees R knee extension and flexion Senior Care Goal (LTG) Pt will be able to reach 2 degrees for R knee extension and 140 for R knee flexion to improve his gait quality, especially during initial contact. LTG Duration 8 weeks LEFS Impairment Pt scores 44/80 for LEFS Short Term Goal (STG) Pt will score >48 (20-39% impairment) to improve his quality of life STG Duration 4 weeks Senior Care Goal (LTG) Pt will score >62 (1-19% impairment) to improve his quality of life LTG Duration 8 weeks Assessment Summary Assessment Pt is not using any pain reliever and reports decreased pain since last visit with KT tape assistance. Cont to focus on patella glide and hip mobility. Pt also denies pain during TKE at neutral position. Added TKE with SLS today. Physical Therapy Plan Next Visit Focus/Plan Next Note Type Treatment Note Next Visit Plan assess tx tolerance and KT application medial line strengthening. hip IR strengthening R knee TKE.at SLS step up RDL
--- NOTE | 2019-03-15 12:26 | PT.OTN ---
Current Diagnoses Patellar tendinitis, right knee (03/15/19) Other specified enthesopathies of right lower limb, excluding foot (03/15/19) Physical Therapy Treatment Note PT-OP-A Visit Information Start: 02/22/19 16:11 Freq: Status: Active Protocol: Document 03/15/19 10:35 HH (Rec: 03/15/19 12:26 HH [email or web address]) Out-Patient Physical Therapy Visit Information Visit Information Visit Type Treatment Note Visit Start Time 10:35 Visit Stop Time 11:15 Total Visit Minutes 40 Visit Number 08/12 Number of RENEWABLE ENERGY DIVISION MANAGER Visits 0 PT-OP-B Current Condition Start: 02/22/19 16:11 Freq: Status: Active Protocol: Document 02/22/19 14:35 HH (Rec: 02/22/19 16:48 HH [email or web address]) Current Condition History of Current Condition Onset Date 3 years ago Current Complaints R knee pain, difficulty in prolonged walking, walking incline/decline. History of Current Condition Pt is a 78yo male presenting to clinic with chronic L knee pain started years ago. Pt does not recall any significant injury but stated his R knee pain started somewhere 3 years ago. He described his pain located below his knee cap and at the joint line sometimes, and felt like sharp pain as got hitting by a chair. His pain has been getting more significant and noticeable within the past year that is the most irritated after prolonged walking/ walking up or downhill. Pt has been marijuana oil/lotion at his R knee and it seems to help him a lot. Pt saw his Dr. Nguyen who believes pt has patella tendinitis. He also received X -ray screen which shows severe patellofemoral joint degeneration, chondrocalanosis and osteopenia. Prior Treatments and Tests X-ray screen which shows severe patellofemoral joint degeneration, chondrocalanosis and osteopenia. Treatment Goals Patient/Caregiver Goals 1. To walk his dog 3x/day up to 10k steps without any knee discomfort 2. Able to climb stairs/ up or downhill without knee discomfort. Personal Factors Other Personal Factors That May Effect HTN Therapy/Recovery Previous heart attack. PT-OP-C Subjective Start: 02/22/19 16:11 Freq: Status: Active Protocol: Document 03/15/19 10:35 HH (Rec: 03/15/19 12:26 HH [email or web address]) OP-PT Subjective Patient Comments Patient Comments The tape did help me but i still noticed just a little bit of pain going downhill Patient Reported Progress Improving PT-OP-D Balance Start: 02/22/19 16:11 Freq: Status: Active Protocol: Document 02/22/19 14:35 HH (Rec: 02/22/19 16:48 HH [email or web address]) Balance Tests Single Limb Standing Single Limb- Right 20s Single Limb- Left 18s PT-OP-F Manual Assessment Start: 02/22/19 16:11 Freq: Status: Active Protocol: Document 02/22/19 14:35 HH (Rec: 02/22/19 16:48 HH [email or web address]) Manual Assessments Soft Tissue Assessment Soft Tissue Mobility Assessment tenderness to pressure at R lateral knee joint line and proximal patellar tendon insertion PT-OP-G Mobility & Gait Start: 02/22/19 16:11 Freq: Status: Active Protocol: Document 02/22/19 14:35 HH (Rec: 02/22/19 16:48 [email or web address]) OP Gait Assessment Comments Gait Comments decreased R foot pronation during midstance compared to L . PT-OP-H Neuro Start: 02/22/19 16:11 Freq: Status: Active Protocol: Document 02/22/19 14:35 HH (Rec: 02/22/19 16:48 [email or web address]) Deep Tendon Reflex & Clonus Assessment Deep Tendon Reflex Bilateral Achilles Deep Tendon Reflex 2+ Normal Bilateral Patellar Deep Tendon Reflex 2+ Normal PT-OP-J Posture/Palpation/Skin Start: 02/22/19 16:11 Freq: Status: Active Protocol: Document 02/22/19 14:35 HH (Rec: 02/22/19 16:48 [email or web address]) Posture Evaluation Position Standing Weight Distribution Weight Shifted Left Knee Posture (R) Genu Varus,(R) Excess Flexion Ankle/Foot Posture (R) Supinated Foot Arch (R) High Arch PT-OP-K Range of Motion Start: 02/22/19 16:11 Freq: Status: Active Protocol: Document 02/25/19 14:34 HH (Rec: 02/25/19 16:23 HH [id number]) Hip Goniometric Range of Motion Hip Right Active Internal Rotation 35 External Rotation 45 Left Active Internal Rotation 45 External Rotation 42 Hip ROM Limitations Hip ROM Limitations Muscle Tone,Pain Comments muscle guarding and pain at end range of L hip IR. PT-OP-L Special Tests Start: 02/22/19 16:11 Freq: Status: Active Protocol: Document 02/25/19 14:34 HH (Rec: 02/25/19 16:23 HH [id number]) Special Tests Foot/Ankle Special Tests calf raise Test Results SL calf raise L=21reps, R= 12reps PT-OP-M Strength Start: 02/22/19 16:11 Freq: Status: Active Protocol: Document 02/22/19 14:35 HH (Rec: 02/22/19 16:48 HH [email or web address]) Hip Strength Hip Manual Muscle Testing Right Flexion (L2) 5 Normal Extension (S1) 5 Normal Abduction 4+ Good+ Adduction 5 Normal Left Flexion (L2) 5 Normal Extension (S1) 5 Normal Abduction 5 Normal Adduction 5 Normal Knee Strength Knee Manual Muscle Testing Right Flexion (S2) 4+ Good+ Extension (L3) 4+ Good+ Comments did not c/o discomfort Left Flexion (S2) 4+ Good+ Extension (L3) 4+ Good+ Comments did not c/o discomfort PT-OP-Q Treatments Start: 02/22/19 16:11 Freq: Status: Active Protocol: Document 03/15/19 10:35 HH (Rec: 03/15/19 12:26 HH [email or web address]) Therapeutic Exercises Supine Exercises hip flexor and quad ST mob Supine Exercise Name yesica test position Side right Reps/Minutes 5 mins Comments with belt for knee flexion Standing Exercises single stance +foot tap Standing Exercise Name SLS+ foot tap laterally Equipment Used yellow band at hip Reps/Minutes 4 mins crab walk Side bilateral Reps/Minutes 5 mins Comments hip hinge position single leg squat Standing Exercise Name side step single leg squat Side bilateral Reps/Minutes 5 x2 Comments c/o pain on RLE during lowering step up Standing Exercise Name 10 step Side bilateral Reps/Minutes 8 x 3 Comments cues on slow eccentric lowering Manual Therapy Treatment Soft Tissue Mobilization R lateral quad, HS, IT band Body Location w/ rolling pin Mobilization Type Rolling Intensity/Depth Moderate Body Position Sidelying Comments tenderness to pressure noted at R lateral quad/ HS R quad Mobilization Type Sustained Pressure,Trigger Point Release Intensity/Depth Moderate Body Position Standing Comments f/b quad stretch with MET Joint Mobilizations patella glide Joint medial and lateral Grade II Body Position Supine Reps/Duration 4 mins PT-OP-T Assessment and Plan Start: 02/22/19 16:11 Freq: Status: Active Protocol: Document 03/15/19 10:35 HH (Rec: 03/15/19 12:26 HH [email or web address]) Physical Therapy Assessment Goals activity tolerance Impairment Unable to walk his dog 3x/day or 10k steps a day without pain Short Term Goal (STG) Pt will be able to walk his dog 3x/day with his dog or 10k steps a day with R knee pain no more than 4/10. STG Duration 4 weeks Reproductive Healthcare Assistant Goal (LTG) Pt will be able to walk his dog 3x/day with his dog or 10k steps a day with R knee pain no more than 2/10. LTG Duration 8 weeks ROM Impairment Pt lacks of 5 degrees R knee extension and flexion Reproductive Healthcare Assistant Goal (LTG) Pt will be able to reach 2 degrees for R knee extension and 140 for R knee flexion to improve his gait quality, especially during initial contact. LTG Duration 8 weeks LEFS Impairment Pt scores 44/80 for LEFS Short Term Goal (STG) Pt will score >48 (20-39% impairment) to improve his quality of life STG Duration 4 weeks Custodial Goal (LTG) Pt will score >62 (1-19% impairment) to improve his quality of life LTG Duration 8 weeks Assessment Summary Assessment Tx progressed to focus on strengthening and balancing training. Pt c/o pain reproduced during single leg squat on 6 step especially eccentric lowering. Provided new HEP for forward step up and crab walk. Physical Therapy Plan Next Visit Focus/Plan Next Note Type Treatment Note Next Visit Plan assess tx tolerance and KT application medial line strengthening. hip IR strengthening R knee TKE.at SLS step up RDL
--- NOTE | 2019-03-18 15:53 | PT.OTN ---
Current Diagnoses Patellar tendinitis, right knee (03/18/19) Other specified enthesopathies of right lower limb, excluding foot (03/18/19) Physical Therapy Treatment Note PT-OP-A Visit Information Start: 02/22/19 16:11 Freq: Status: Active Protocol: Document 03/18/19 14:50 EG (Rec: 03/18/19 15:04 EG [email or web address]) Out-Patient Physical Therapy Visit Information Visit Information Visit Type Treatment Note Visit Start Time 11:15 Visit Stop Time 12:00 Total Visit Minutes 45 Visit Number 09/11 Number of PATIENT SERVICES MANAGER Visits 0 PT-OP-B Current Condition Start: 02/22/19 16:11 Freq: Status: Active Protocol: Document 02/22/19 14:35 HH (Rec: 02/22/19 16:48 HH [email or web address]) Current Condition History of Current Condition Onset Date 3 years ago Current Complaints R knee pain, difficulty in prolonged walking, walking incline/decline. History of Current Condition Pt is a 78yo male presenting to clinic with chronic L knee pain started years ago. Pt does not recall any significant injury but stated his R knee pain started somewhere 3 years ago. He described his pain located below his knee cap and at the joint line sometimes, and felt like sharp pain as got hitting by a chair. His pain has been getting more significant and noticeable within the past year that is the most irritated after prolonged walking/ walking up or downhill. Pt has been marijuana oil/lotion at his R knee and it seems to help him a lot. Pt saw his Dr. Nguyen who believes pt has patella tendinitis. He also received X -ray screen which shows severe patellofemoral joint degeneration, chondrocalanosis and osteopenia. Prior Treatments and Tests X-ray screen which shows severe patellofemoral joint degeneration, chondrocalanosis and osteopenia. Treatment Goals Patient/Caregiver Goals 1. To walk his dog 3x/day up to 10k steps without any knee discomfort 2. Able to climb stairs/ up or downhill without knee discomfort. Personal Factors Other Personal Factors That May Effect HTN Therapy/Recovery Previous heart attack. PT-OP-C Subjective Start: 02/22/19 16:11 Freq: Status: Active Protocol: Document 03/18/19 14:50 EG (Rec: 03/18/19 15:04 EG [email or web address]) OP-PT Subjective Patient Comments Patient Comments The patient reported that he is still feeling his knee while he is walking downhill so he is not satisfied quite yet because of this. He does think it is getting slightly better though. Patient also reported that he feels his knee sometimes when he is sitting by his desk for longer periods with his knees bent. Patient Reported Progress Improving PT-OP-D Balance Start: 02/22/19 16:11 Freq: Status: Active Protocol: Document 02/22/19 14:35 HH (Rec: 02/22/19 16:48 HH [email or web address]) Balance Tests Single Limb Standing Single Limb- Right 20s Single Limb- Left 18s PT-OP-F Manual Assessment Start: 02/22/19 16:11 Freq: Status: Active Protocol: Document 02/22/19 14:35 HH (Rec: 02/22/19 16:48 HH [email or web address]) Manual Assessments Soft Tissue Assessment Soft Tissue Mobility Assessment tenderness to pressure at R lateral knee joint line and proximal patellar tendon insertion PT-OP-G Mobility & Gait Start: 02/22/19 16:11 Freq: Status: Active Protocol: Document 02/22/19 14:35 HH (Rec: 02/22/19 16:48 HH [email or web address]) OP Gait Assessment Comments Gait Comments decreased R foot pronation during midstance compared to L . PT-OP-H Neuro Start: 02/22/19 16:11 Freq: Status: Active Protocol: Document 02/22/19 14:35 HH (Rec: 02/22/19 16:48 HH [email or web address]) Deep Tendon Reflex & Clonus Assessment Deep Tendon Reflex Bilateral Achilles Deep Tendon Reflex 2+ Normal Bilateral Patellar Deep Tendon Reflex 2+ Normal PT-OP-J Posture/Palpation/Skin Start: 02/22/19 16:11 Freq: Status: Active Protocol: Document 02/22/19 14:35 HH (Rec: 02/22/19 16:48 HH [email or web address]) Posture Evaluation Position Standing Weight Distribution Weight Shifted Left Knee Posture (R) Genu Varus,(R) Excess Flexion Ankle/Foot Posture (R) Supinated Foot Arch (R) High Arch PT-OP-K Range of Motion Start: 02/22/19 16:11 Freq: Status: Active Protocol: Document 02/25/19 14:34 HH (Rec: 02/25/19 16:23 HH [id number]) Hip Goniometric Range of Motion Hip Right Active Internal Rotation 35 External Rotation 45 Left Active Internal Rotation 45 External Rotation 42 Hip ROM Limitations Hip ROM Limitations Muscle Tone,Pain Comments muscle guarding and pain at end range of L hip IR. PT-OP-L Special Tests Start: 02/22/19 16:11 Freq: Status: Active Protocol: Document 02/25/19 14:34 HH (Rec: 02/25/19 16:23 HH [id number]) Special Tests Foot/Ankle Special Tests calf raise Test Results SL calf raise L=21reps, R= 12reps PT-OP-M Strength Start: 02/22/19 16:11 Freq: Status: Active Protocol: Document 02/22/19 14:35 HH (Rec: 02/22/19 16:48 HH [email or web address]) Hip Strength Hip Manual Muscle Testing Right Flexion (L2) 5 Normal Extension (S1) 5 Normal Abduction 4+ Good+ Adduction 5 Normal Left Flexion (L2) 5 Normal Extension (S1) 5 Normal Abduction 5 Normal Adduction 5 Normal Knee Strength Knee Manual Muscle Testing Right Flexion (S2) 4+ Good+ Extension (L3) 4+ Good+ Comments did not c/o discomfort Left Flexion (S2) 4+ Good+ Extension (L3) 4+ Good+ Comments did not c/o discomfort PT-OP-Q Treatments Start: 02/22/19 16:11 Freq: Status: Active Protocol: Document 03/18/19 14:50 EG (Rec: 03/18/19 15:04 EG [email or web address]) Cardio Equipment Bicycle (Upright) Duration (Minutes) 5 Resistance 7 Therapeutic Exercises Supine Exercises Trinidadian Ball Hamstring Curl Supine Exercise Name Trinidadian Ball Hamstring Curl Side bilateral Equipment Used Red estonian ball Reps/Minutes 8x Comments both legs on ball, bridge up, bend knees, straighten, hips down Standing Exercises Gastroc stretch Standing Exercise Name Gastrocnemius stretch Side bilateral Equipment Used CASSIE Reps/Minutes 30 sec Hamstring Stretch Standing Exercise Name Standing hamstring stretch in stairs Side bilateral Equipment Used hand rails in therapeutic stairwell Reps/Minutes 30 sec each side single stance +foot tap Standing Exercise Name SLS with slight bend at knee and hip+ foot tap laterally Reps/Minutes 20x Comments emphasis on glute engagement crab walk Side bilateral Resistance Level 3 Equipment Used Level 3 TB Reps/Minutes 2 x 1 min Comments band around thighs; increased vipin RDL Standing Exercise Name Single leg RDL Side right Equipment Used handrail for support Reps/Minutes 10x Comments cues for keeping core strong and back strength with movement Manual Therapy Treatment Soft Tissue Mobilization R lateral quad, HS, IT band Body Location w/ stick Mobilization Type Rolling Intensity/Depth Moderate Body Position supine knees supported Taping R patella tendon Body Location R knee Type of Tape Kinesio Tape Comments patella stabilization; 2 pieces tape surrounding patella PT-OP-T Assessment and Plan Start: 02/22/19 16:11 Freq: Status: Active Protocol: Document 03/18/19 14:50 EG (Rec: 03/18/19 15:04 EG [email or web address]) Physical Therapy Assessment Assessment Summary Assessment Patient tolerated today's treatment well and was able to increase activation of gluteal muscles after education. Patient does tend to increase knee flexion with activities and needs tactile and verbal cues to activate gluteal muscles for standing stability. Patient did request taping again so important to assess how this was for him as well as how increasing gluteal action during downhill walking. Physical Therapy Plan Next Visit Focus/Plan Next Note Type Treatment Note Next Visit Plan Assess how patient felt after last appointment and change in muscular activation during downhill walking. Continue with gluteal strengthening and neuro-reeducation. Che Mcduffie DPT, supervised all treatment performed by, and agreed with the plan of care, as performed by Alexia Amador, NAOMIE.
--- NOTE | 2019-03-22 12:58 | PT.OTN ---
Current Diagnoses Patellar tendinitis, right knee (03/22/19) Other specified enthesopathies of right lower limb, excluding foot (03/22/19) Physical Therapy Treatment Note PT-OP-A Visit Information Start: 02/22/19 16:11 Freq: Status: Active Protocol: Document 03/22/19 09:47 HH (Rec: 03/22/19 12:58 HH [email or web address]) Out-Patient Physical Therapy Visit Information Visit Information Visit Type Treatment Note Visit Start Time 09:47 Visit Stop Time 10:29 Total Visit Minutes 42 Visit Number 10/12 Number of LEAD ELECTRICAL ENGINEER Visits 0 PT-OP-B Current Condition Start: 02/22/19 16:11 Freq: Status: Active Protocol: Document 02/22/19 14:35 HH (Rec: 02/22/19 16:48 HH [email or web address]) Current Condition History of Current Condition Onset Date 3 years ago Current Complaints R knee pain, difficulty in prolonged walking, walking incline/decline. History of Current Condition Pt is a 78yo male presenting to clinic with chronic L knee pain started years ago. Pt does not recall any significant injury but stated his R knee pain started somewhere 3 years ago. He described his pain located below his knee cap and at the joint line sometimes, and felt like sharp pain as got hitting by a chair. His pain has been getting more significant and noticeable within the past year that is the most irritated after prolonged walking/ walking up or downhill. Pt has been marijuana oil/lotion at his R knee and it seems to help him a lot. Pt saw his Dr. Nguyen who believes pt has patella tendinitis. He also received X -ray screen which shows severe patellofemoral joint degeneration, chondrocalanosis and osteopenia. Prior Treatments and Tests X-ray screen which shows severe patellofemoral joint degeneration, chondrocalanosis and osteopenia. Treatment Goals Patient/Caregiver Goals 1. To walk his dog 3x/day up to 10k steps without any knee discomfort 2. Able to climb stairs/ up or downhill without knee discomfort. Personal Factors Other Personal Factors That May Effect HTN Therapy/Recovery Previous heart attack. PT-OP-C Subjective Start: 02/22/19 16:11 Freq: Status: Active Protocol: Document 03/22/19 09:47 HH (Rec: 03/22/19 12:58 HH [email or web address]) OP-PT Subjective Patient Comments Patient Comments The tape doesnt help as much as the previous did. But my knee seems not to aggravate as much going downhill lately but still there. I do have difficulty engaging my gluteal muscles. Patient Reported Progress Improving PT-OP-D Balance Start: 02/22/19 16:11 Freq: Status: Active Protocol: Document 02/22/19 14:35 HH (Rec: 02/22/19 16:48 HH [email or web address]) Balance Tests Single Limb Standing Single Limb- Right 20s Single Limb- Left 18s PT-OP-F Manual Assessment Start: 02/22/19 16:11 Freq: Status: Active Protocol: Document 02/22/19 14:35 HH (Rec: 02/22/19 16:48 HH [email or web address]) Manual Assessments Soft Tissue Assessment Soft Tissue Mobility Assessment tenderness to pressure at R lateral knee joint line and proximal patellar tendon insertion PT-OP-G Mobility & Gait Start: 02/22/19 16:11 Freq: Status: Active Protocol: Document 02/22/19 14:35 HH (Rec: 02/22/19 16:48 HH [email or web address]) OP Gait Assessment Comments Gait Comments decreased R foot pronation during midstance compared to L . PT-OP-H Neuro Start: 02/22/19 16:11 Freq: Status: Active Protocol: Document 02/22/19 14:35 HH (Rec: 02/22/19 16:48 HH [email or web address]) Deep Tendon Reflex & Clonus Assessment Deep Tendon Reflex Bilateral Achilles Deep Tendon Reflex 2+ Normal Bilateral Patellar Deep Tendon Reflex 2+ Normal PT-OP-J Posture/Palpation/Skin Start: 02/22/19 16:11 Freq: Status: Active Protocol: Document 02/22/19 14:35 HH (Rec: 02/22/19 16:48 HH [email or web address]) Posture Evaluation Position Standing Weight Distribution Weight Shifted Left Knee Posture (R) Genu Varus,(R) Excess Flexion Ankle/Foot Posture (R) Supinated Foot Arch (R) High Arch PT-OP-K Range of Motion Start: 02/22/19 16:11 Freq: Status: Active Protocol: Document 02/25/19 14:34 HH (Rec: 02/25/19 16:23 HH [id number]) Hip Goniometric Range of Motion Hip Right Active Internal Rotation 35 External Rotation 45 Left Active Internal Rotation 45 External Rotation 42 Hip ROM Limitations Hip ROM Limitations Muscle Tone,Pain Comments muscle guarding and pain at end range of L hip IR. PT-OP-L Special Tests Start: 02/22/19 16:11 Freq: Status: Active Protocol: Document 02/25/19 14:34 HH (Rec: 02/25/19 16:23 HH [id number]) Special Tests Foot/Ankle Special Tests calf raise Test Results SL calf raise L=21reps, R= 12reps PT-OP-M Strength Start: 02/22/19 16:11 Freq: Status: Active Protocol: Document 02/22/19 14:35 HH (Rec: 02/22/19 16:48 HH [email or web address]) Hip Strength Hip Manual Muscle Testing Right Flexion (L2) 5 Normal Extension (S1) 5 Normal Abduction 4+ Good+ Adduction 5 Normal Left Flexion (L2) 5 Normal Extension (S1) 5 Normal Abduction 5 Normal Adduction 5 Normal Knee Strength Knee Manual Muscle Testing Right Flexion (S2) 4+ Good+ Extension (L3) 4+ Good+ Comments did not c/o discomfort Left Flexion (S2) 4+ Good+ Extension (L3) 4+ Good+ Comments did not c/o discomfort PT-OP-Q Treatments Start: 02/22/19 16:11 Freq: Status: Active Protocol: Document 03/22/19 09:47 HH (Rec: 03/22/19 12:58 HH [email or web address]) Cardio Equipment Bicycle (Upright) Duration (Minutes) 5 Resistance 7 Gym Equipment Cable Column (Body Solid) seated hip abd Resistance 20 lbs Reps/Time 10x 2 Therapeutic Exercises Supine Exercises bridge Supine Exercise Name hip abd with band on knees Side bilateral Resistance yellow band Reps/Minutes 10 x2 hip flexor and quad ST mob Supine Exercise Name yesica test position Side right Reps/Minutes 5 mins Comments with belt for knee flexion Standing Exercises single stance +foot tap Standing Exercise Name SLS with slider Reps/Minutes 12 mins Comments at knee/ hip dominant position calf raises Side bilateral Comments L= 10, R=11 Manual Therapy Treatment Soft Tissue Mobilization R quad Mobilization Type Rolling,Sustained Pressure, Trigger Point Release Intensity/Depth Moderate Body Position Standing Comments f/b quad stretch with MET and rolling pin PT-OP-T Assessment and Plan Start: 02/22/19 16:11 Freq: Status: Active Protocol: Document 03/22/19 09:47 (Rec: 03/22/19 12:58 [email or web address]) Physical Therapy Assessment Goals activity tolerance Impairment Unable to walk his dog 3x/day or 10k steps a day without pain Short Term Goal (STG) Pt will be able to walk his dog 3x/day with his dog or 10k steps a day with R knee pain no more than 4/10. STG Duration 4 weeks Usp Goal (LTG) Pt will be able to walk his dog 3x/day with his dog or 10k steps a day with R knee pain no more than 2/10. LTG Duration 8 weeks ROM Impairment Pt lacks of 5 degrees R knee extension and flexion Branch Operations Specialist Goal (LTG) Pt will be able to reach 2 degrees for R knee extension and 140 for R knee flexion to improve his gait quality, especially during initial contact. LTG Duration 8 weeks LEFS Impairment Pt scores 44/80 for LEFS Short Term Goal (STG) Pt will score >48 (20-39% impairment) to improve his quality of life STG Duration 4 weeks Branch Operations Specialist Goal (LTG) Pt will score >62 (1-19% impairment) to improve his quality of life LTG Duration 8 weeks Assessment Summary Assessment Pt has improved knee mobility with improved quad contraction and knee flexion with less discomfort. Pt cont to be easily agitated with Slider ex with knee dominant ex. Educated pt to use hip hinge position for stair climbing/ downhill walking to reduce patellofemoral stress.
--- NOTE | 2019-03-29 12:06 | PT.OTN ---
Current Diagnoses Patellar tendinitis, right knee (03/29/19) Other specified enthesopathies of right lower limb, excluding foot (03/29/19) Physical Therapy Treatment Note PT-OP-A Visit Information Start: 02/22/19 16:11 Freq: Status: Active Protocol: Document 03/29/19 10:35 HH (Rec: 03/29/19 12:06 [id number]) Out-Patient Physical Therapy Visit Information Visit Information Visit Type Treatment Note Visit Start Time 10:35 Visit Stop Time 11:15 Total Visit Minutes 40 Visit Number 11/12 Number of WELDING INSTRUCTOR Visits 0 PT-OP-B Current Condition Start: 02/22/19 16:11 Freq: Status: Active Protocol: Document 02/22/19 14:35 HH (Rec: 02/22/19 16:48 HH [email or web address]) Current Condition History of Current Condition Onset Date 3 years ago Current Complaints R knee pain, difficulty in prolonged walking, walking incline/decline. History of Current Condition Pt is a 78yo male presenting to clinic with chronic L knee pain started years ago. Pt does not recall any significant injury but stated his R knee pain started somewhere 3 years ago. He described his pain located below his knee cap and at the joint line sometimes, and felt like sharp pain as got hitting by a chair. His pain has been getting more significant and noticeable within the past year that is the most irritated after prolonged walking/ walking up or downhill. Pt has been marijuana oil/lotion at his R knee and it seems to help him a lot. Pt saw his Dr. Nguyen who believes pt has patella tendinitis. He also received X -ray screen which shows severe patellofemoral joint degeneration, chondrocalanosis and osteopenia. Prior Treatments and Tests X-ray screen which shows severe patellofemoral joint degeneration, chondrocalanosis and osteopenia. Treatment Goals Patient/Caregiver Goals 1. To walk his dog 3x/day up to 10k steps without any knee discomfort 2. Able to climb stairs/ up or downhill without knee discomfort. Personal Factors Other Personal Factors That May Effect HTN Therapy/Recovery Previous heart attack. PT-OP-C Subjective Start: 02/22/19 16:11 Freq: Status: Active Protocol: Document 03/29/19 10:35 HH (Rec: 02/04/20 12:06 HH [id number]) OP-PT Subjective Patient Comments Patient Comments I walked 15k steps yesterday and it didnt bother me much pain at 2-3/10 at most. Going up/downhill still bother me sometimes but not so much downhill now. Patient Reported Progress Improving PT-OP-D Balance Start: 02/22/19 16:11 Freq: Status: Active Protocol: Document 02/22/19 14:35 HH (Rec: 02/22/19 16:48 HH [email or web address]) Balance Tests Single Limb Standing Single Limb- Right 20s Single Limb- Left 18s PT-OP-F Manual Assessment Start: 02/22/19 16:11 Freq: Status: Active Protocol: Document 02/22/19 14:35 HH (Rec: 02/22/19 16:48 HH [email or web address]) Manual Assessments Soft Tissue Assessment Soft Tissue Mobility Assessment tenderness to pressure at R lateral knee joint line and proximal patellar tendon insertion PT-OP-G Mobility & Gait Start: 02/22/19 16:11 Freq: Status: Active Protocol: Document 02/22/19 14:35 HH (Rec: 02/22/19 16:48 HH [email or web address]) OP Gait Assessment Comments Gait Comments decreased R foot pronation during midstance compared to L . PT-OP-H Neuro Start: 02/22/19 16:11 Freq: Status: Active Protocol: Document 02/22/19 14:35 HH (Rec: 02/22/19 16:48 HH [email or web address]) Deep Tendon Reflex & Clonus Assessment Deep Tendon Reflex Bilateral Achilles Deep Tendon Reflex 2+ Normal Bilateral Patellar Deep Tendon Reflex 2+ Normal PT-OP-J Posture/Palpation/Skin Start: 02/22/19 16:11 Freq: Status: Active Protocol: Document 02/22/19 14:35 HH (Rec: 02/22/19 16:48 HH [email or web address]) Posture Evaluation Position Standing Weight Distribution Weight Shifted Left Knee Posture (R) Genu Varus,(R) Excess Flexion Ankle/Foot Posture (R) Supinated Foot Arch (R) High Arch PT-OP-K Range of Motion Start: 02/22/19 16:11 Freq: Status: Active Protocol: Document 02/25/19 14:34 HH (Rec: 02/25/19 16:23 HH [id number]) Hip Goniometric Range of Motion Hip Right Active Internal Rotation 35 External Rotation 45 Left Active Internal Rotation 45 External Rotation 42 Hip ROM Limitations Hip ROM Limitations Muscle Tone,Pain Comments muscle guarding and pain at end range of L hip IR. PT-OP-L Special Tests Start: 02/22/19 16:11 Freq: Status: Active Protocol: Document 02/25/19 14:34 HH (Rec: 02/25/19 16:23 HH [id number]) Special Tests Foot/Ankle Special Tests calf raise Test Results SL calf raise L=21reps, R= 12reps PT-OP-M Strength Start: 02/22/19 16:11 Freq: Status: Active Protocol: Document 02/22/19 14:35 HH (Rec: 02/22/19 16:48 HH [email or web address]) Hip Strength Hip Manual Muscle Testing Right Flexion (L2) 5 Normal Extension (S1) 5 Normal Abduction 4+ Good+ Adduction 5 Normal Left Flexion (L2) 5 Normal Extension (S1) 5 Normal Abduction 5 Normal Adduction 5 Normal Knee Strength Knee Manual Muscle Testing Right Flexion (S2) 4+ Good+ Extension (L3) 4+ Good+ Comments did not c/o discomfort Left Flexion (S2) 4+ Good+ Extension (L3) 4+ Good+ Comments did not c/o discomfort PT-OP-Q Treatments Start: 02/22/19 16:11 Freq: Status: Active Protocol: Document 03/29/19 10:35 HH (Rec: 03/29/19 12:06 HH [id number]) Cardio Equipment Bicycle (Upright) Duration (Minutes) 7 Resistance 7 Gym Equipment Shuttle Recovery SL squat Resistance #50 Shuttle Recovery Platform Stable Therapeutic Exercises Standing Exercises SLS Side bilateral Reps/Minutes 20 secs each x 8 Comments followed by standing on blue foam single stance +foot tap Standing Exercise Name SLS with slider Reps/Minutes 12 mins Comments at knee/ hip dominant position Manual Therapy Treatment Soft Tissue Mobilization R quad Mobilization Type Rolling,Sustained Pressure, Trigger Point Release Intensity/Depth Moderate Body Position Standing Comments f/b quad stretch with MET and rolling pin patella tendon as well Joint Mobilizations patella glide Joint medial and lateral Grade III Body Position Supine Reps/Duration 8 mins PT-OP-T Assessment and Plan Start: 02/22/19 16:11 Freq: Status: Active Protocol: Document 03/29/19 10:35 HH (Rec: 03/29/19 12:06 [id number]) Physical Therapy Assessment Goals activity tolerance Impairment Unable to walk his dog 3x/day or 10k steps a day without pain Short Term Goal (STG) Pt will be able to walk his dog 3x/day with his dog or 10k steps a day with R knee pain no more than 4/10. STG Duration 4 weeks Skilled Nursing Goal (LTG) Pt will be able to walk his dog 3x/day with his dog or 10k steps a day with R knee pain no more than 2/10. LTG Duration 8 weeks ROM Impairment Pt lacks of 5 degrees R knee extension and flexion Ent Surgeon Goal (LTG) Pt will be able to reach 2 degrees for R knee extension and 140 for R knee flexion to improve his gait quality, especially during initial contact. LTG Duration 8 weeks LEFS Impairment Pt scores 44/80 for LEFS Short Term Goal (STG) Pt will score >48 (20-39% impairment) to improve his quality of life STG Duration 4 weeks Skilled Nursing Goal (LTG) Pt will score >62 (1-19% impairment) to improve his quality of life LTG Duration 8 weeks Assessment Summary Assessment Pt cont to have slow improvement but he doesnt complaint any pain/discomfort during stratton test today. His SL balance also improved to 28 -30s since IE. Will go through safety use for gym equipments since pt is planning to joint senior gym membership. Physical Therapy Plan Next Visit Focus/Plan Next Note Type Treatment Note Next Visit Plan Assess how patient felt after last appointment and change in muscular activation during downhill walking. Continue with gluteal strengthening and neuro-reeducation.
--- NOTE | 2019-03-31 11:20 | PT.OTN ---
Current Diagnoses Patellar tendinitis, right knee (03/31/19) Other specified enthesopathies of right lower limb, excluding foot (03/31/19) Physical Therapy Treatment Note PT-OP-A Visit Information Start: 02/22/19 16:11 Freq: Status: Active Protocol: Document 03/31/19 10:34 HH (Rec: 03/31/19 11:19 [id number]) Out-Patient Physical Therapy Visit Information Visit Information Visit Type Progress Note Visit Start Time 10:35 Visit Stop Time 11:15 Total Visit Minutes 41 Visit Number 12/12 Number of UNDERGROUND CONDUIT INSTALLER Visits 0 PT-OP-B Current Condition Start: 02/22/19 16:11 Freq: Status: Active Protocol: Document 02/22/19 14:35 HH (Rec: 02/22/19 16:48 [email or web address]) Current Condition History of Current Condition Onset Date 3 years ago Current Complaints R knee pain, difficulty in prolonged walking, walking incline/decline. History of Current Condition Pt is a 78yo male presenting to clinic with chronic L knee pain started years ago. Pt does not recall any significant injury but stated his R knee pain started somewhere 3 years ago. He described his pain located below his knee cap and at the joint line sometimes, and felt like sharp pain as got hitting by a chair. His pain has been getting more significant and noticeable within the past year that is the most irritated after prolonged walking/ walking up or downhill. Pt has been marijuana oil/lotion at his R knee and it seems to help him a lot. Pt saw his Dr. Nguyen who believes pt has patella tendinitis. He also received X -ray screen which shows severe patellofemoral joint degeneration, chondrocalanosis and osteopenia. Prior Treatments and Tests X-ray screen which shows severe patellofemoral joint degeneration, chondrocalanosis and osteopenia. Treatment Goals Patient/Caregiver Goals 1. To walk his dog 3x/day up to 10k steps without any knee discomfort 2. Able to climb stairs/ up or downhill without knee discomfort. Personal Factors Other Personal Factors That May Effect HTN Therapy/Recovery Previous heart attack. PT-OP-C Subjective Start: 02/22/19 16:11 Freq: Status: Active Protocol: Document 03/31/19 10:34 HH (Rec: 03/31/19 11:19 [id number]) OP-PT Subjective Patient Comments Patient Comments I did 15k steps yesterday. And im planning to join the gym membership this weekend. PT-OP-D Balance Start: 02/22/19 16:11 Freq: Status: Active Protocol: Document 02/22/19 14:35 HH (Rec: 02/22/19 16:48 HH [email or web address]) Balance Tests Single Limb Standing Single Limb- Right 20s Single Limb- Left 18s PT-OP-F Manual Assessment Start: 02/22/19 16:11 Freq: Status: Active Protocol: Document 02/22/19 14:35 HH (Rec: 02/22/19 16:48 HH [email or web address]) Manual Assessments Soft Tissue Assessment Soft Tissue Mobility Assessment tenderness to pressure at R lateral knee joint line and proximal patellar tendon insertion PT-OP-G Mobility & Gait Start: 02/22/19 16:11 Freq: Status: Active Protocol: Document 02/22/19 14:35 HH (Rec: 02/22/19 16:48 HH [email or web address]) OP Gait Assessment Comments Gait Comments decreased R foot pronation during midstance compared to L . PT-OP-H Neuro Start: 02/22/19 16:11 Freq: Status: Active Protocol: Document 02/22/19 14:35 HH (Rec: 02/22/19 16:48 HH [email or web address]) Deep Tendon Reflex & Clonus Assessment Deep Tendon Reflex Bilateral Achilles Deep Tendon Reflex 2+ Normal Bilateral Patellar Deep Tendon Reflex 2+ Normal PT-OP-J Posture/Palpation/Skin Start: 02/22/19 16:11 Freq: Status: Active Protocol: Document 02/22/19 14:35 HH (Rec: 02/22/19 16:48 HH [email or web address]) Posture Evaluation Position Standing Weight Distribution Weight Shifted Left Knee Posture (R) Genu Varus,(R) Excess Flexion Ankle/Foot Posture (R) Supinated Foot Arch (R) High Arch PT-OP-K Range of Motion Start: 02/22/19 16:11 Freq: Status: Active Protocol: Document 02/25/19 14:34 HH (Rec: 02/25/19 16:23 HH [id number]) Hip Goniometric Range of Motion Hip Right Active Internal Rotation 35 External Rotation 45 Left Active Internal Rotation 45 External Rotation 42 Hip ROM Limitations Hip ROM Limitations Muscle Tone,Pain Comments muscle guarding and pain at end range of L hip IR. PT-OP-L Special Tests Start: 02/22/19 16:11 Freq: Status: Active Protocol: Document 02/25/19 14:34 HH (Rec: 02/25/19 16:23 [id number]) Special Tests Foot/Ankle Special Tests calf raise Test Results SL calf raise L=21reps, R= 12reps PT-OP-M Strength Start: 02/22/19 16:11 Freq: Status: Active Protocol: Document 02/22/19 14:35 HH (Rec: 02/22/19 16:48 [email or web address]) Hip Strength Hip Manual Muscle Testing Right Flexion (L2) 5 Normal Extension (S1) 5 Normal Abduction 4+ Good+ Adduction 5 Normal Left Flexion (L2) 5 Normal Extension (S1) 5 Normal Abduction 5 Normal Adduction 5 Normal Knee Strength Knee Manual Muscle Testing Right Flexion (S2) 4+ Good+ Extension (L3) 4+ Good+ Comments did not c/o discomfort Left Flexion (S2) 4+ Good+ Extension (L3) 4+ Good+ Comments did not c/o discomfort PT-OP-Q Treatments Start: 02/22/19 16:11 Freq: Status: Active Protocol: Document 03/31/19 10:34 HH (Rec: 03/31/19 11:19 [id number]) Cardio Equipment Elliptical Duration (Minutes) 3 Resistance 5 Gym Equipment Shuttle Recovery SL squat Resistance #50- #62 Shuttle Recovery Platform Stable Reps/Time 12 x 3 each Therapeutic Exercises Standing Exercises SLS Side bilateral Reps/Minutes 20 secs each x 8 Comments followed by standing on blue foam single stance +foot tap Standing Exercise Name SLS and 3 way toe tap Reps/Minutes 10 mins Comments at knee/ hip dominant position step up Standing Exercise Name one UE support on rail Side bilateral Reps/Minutes 3 mins PT-OP-T Assessment and Plan Start: 02/22/19 16:11 Freq: Status: Active Protocol: Document 03/31/19 10:34 HH (Rec: 03/31/19 11:19 [id number]) Physical Therapy Assessment Goals activity tolerance Impairment Unable to walk his dog 3x/day or 10k steps a day without pain Short Term Goal (STG) Pt will be able to walk his dog 3x/day with his dog or 10k steps a day with R knee pain no more than 4/10. STG Duration 4 weeks Cardiopulmonary Specialist Goal (LTG) Pt will be able to walk his dog 3x/day with his dog or 10k steps a day with R knee pain no more than 2/10. LTG Duration 8 weeks ROM Impairment Pt lacks of 5 degrees R knee extension and flexion Shelter Goal (LTG) Pt will be able to reach 2 degrees for R knee extension and 140 for R knee flexion to improve his gait quality, especially during initial contact. LTG Duration 8 weeks LEFS Impairment Pt scores 44/80 for LEFS Short Term Goal (STG) Pt will score >48 (20-39% impairment) to improve his quality of life STG Duration 4 weeks Shelter Goal (LTG) Pt will score >62 (1-19% impairment) to improve his quality of life LTG Duration 8 weeks Assessment Summary Assessment Pt cont to improve with single leg balance >40 s, single leg strength on leg press up to # 62 . Provided new HEP with squat, SLS toe tap, step up and side step with band Physical Therapy Plan Next Visit Focus/Plan Next Note Type Treatment Note Next Visit Plan Assess how patient felt after last appointment and change in muscular activation during downhill walking. Continue with gluteal strengthening and neuro-reeducation. cont SLS balance training
--- NOTE | 2019-04-05 12:02 | PT.OTN ---
Current Diagnoses Patellar tendinitis, right knee (04/05/19) Other specified enthesopathies of right lower limb, excluding foot (04/05/19) Physical Therapy Treatment Note PT-OP-A Visit Information Start: 02/22/19 16:11 Freq: Status: Active Protocol: Document 04/05/19 10:39 HH (Rec: 04/05/19 11:29 [id number]) Out-Patient Physical Therapy Visit Information Visit Information Visit Type Treatment Note Visit Start Time 10:39 Visit Stop Time 11:15 Total Visit Minutes 41 Visit Number 01/12 Number of TELLER SUPERVISOR Visits 0 PT-OP-B Current Condition Start: 02/22/19 16:11 Freq: Status: Active Protocol: Document 02/22/19 14:35 HH (Rec: 02/22/19 16:48 HH [email or web address]) Current Condition History of Current Condition Onset Date 3 years ago Current Complaints R knee pain, difficulty in prolonged walking, walking incline/decline. History of Current Condition Pt is a 78yo male presenting to clinic with chronic L knee pain started years ago. Pt does not recall any significant injury but stated his R knee pain started somewhere 3 years ago. He described his pain located below his knee cap and at the joint line sometimes, and felt like sharp pain as got hitting by a chair. His pain has been getting more significant and noticeable within the past year that is the most irritated after prolonged walking/ walking up or downhill. Pt has been marijuana oil/lotion at his R knee and it seems to help him a lot. Pt saw his Dr. Nguyen who believes pt has patella tendinitis. He also received X -ray screen which shows severe patellofemoral joint degeneration, chondrocalanosis and osteopenia. Prior Treatments and Tests X-ray screen which shows severe patellofemoral joint degeneration, chondrocalanosis and osteopenia. Treatment Goals Patient/Caregiver Goals 1. To walk his dog 3x/day up to 10k steps without any knee discomfort 2. Able to climb stairs/ up or downhill without knee discomfort. Personal Factors Other Personal Factors That May Effect HTN Therapy/Recovery Previous heart attack. PT-OP-C Subjective Start: 02/22/19 16:11 Freq: Status: Active Protocol: Document 04/05/19 10:39 HH (Rec: 02/11/20 11:29 HH [id number]) OP-PT Subjective Patient Comments Patient Comments Im feeling pretty good. Going up and downhill are doing pretty good. Patient Reported Progress Improving PT-OP-D Balance Start: 02/22/19 16:11 Freq: Status: Active Protocol: Document 02/22/19 14:35 HH (Rec: 02/22/19 16:48 HH [email or web address]) Balance Tests Single Limb Standing Single Limb- Right 20s Single Limb- Left 18s PT-OP-F Manual Assessment Start: 02/22/19 16:11 Freq: Status: Active Protocol: Document 02/22/19 14:35 HH (Rec: 02/22/19 16:48 HH [email or web address]) Manual Assessments Soft Tissue Assessment Soft Tissue Mobility Assessment tenderness to pressure at R lateral knee joint line and proximal patellar tendon insertion PT-OP-G Mobility & Gait Start: 02/22/19 16:11 Freq: Status: Active Protocol: Document 02/22/19 14:35 HH (Rec: 02/22/19 16:48 [email or web address]) OP Gait Assessment Comments Gait Comments decreased R foot pronation during midstance compared to L . PT-OP-H Neuro Start: 02/22/19 16:11 Freq: Status: Active Protocol: Document 02/22/19 14:35 HH (Rec: 02/22/19 16:48 [email or web address]) Deep Tendon Reflex & Clonus Assessment Deep Tendon Reflex Bilateral Achilles Deep Tendon Reflex 2+ Normal Bilateral Patellar Deep Tendon Reflex 2+ Normal PT-OP-J Posture/Palpation/Skin Start: 02/22/19 16:11 Freq: Status: Active Protocol: Document 02/22/19 14:35 HH (Rec: 02/22/19 16:48 [email or web address]) Posture Evaluation Position Standing Weight Distribution Weight Shifted Left Knee Posture (R) Genu Varus,(R) Excess Flexion Ankle/Foot Posture (R) Supinated Foot Arch (R) High Arch PT-OP-K Range of Motion Start: 02/22/19 16:11 Freq: Status: Active Protocol: Document 02/25/19 14:34 HH (Rec: 02/25/19 16:23 HH [id number]) Hip Goniometric Range of Motion Hip Right Active Internal Rotation 35 External Rotation 45 Left Active Internal Rotation 45 External Rotation 42 Hip ROM Limitations Hip ROM Limitations Muscle Tone,Pain Comments muscle guarding and pain at end range of L hip IR. PT-OP-L Special Tests Start: 02/22/19 16:11 Freq: Status: Active Protocol: Document 02/25/19 14:34 HH (Rec: 02/25/19 16:23 [id number]) Special Tests Foot/Ankle Special Tests calf raise Test Results SL calf raise L=21reps, R= 12reps PT-OP-M Strength Start: 02/22/19 16:11 Freq: Status: Active Protocol: Document 02/22/19 14:35 HH (Rec: 02/22/19 16:48 [email or web address]) Hip Strength Hip Manual Muscle Testing Right Flexion (L2) 5 Normal Extension (S1) 5 Normal Abduction 4+ Good+ Adduction 5 Normal Left Flexion (L2) 5 Normal Extension (S1) 5 Normal Abduction 5 Normal Adduction 5 Normal Knee Strength Knee Manual Muscle Testing Right Flexion (S2) 4+ Good+ Extension (L3) 4+ Good+ Comments did not c/o discomfort Left Flexion (S2) 4+ Good+ Extension (L3) 4+ Good+ Comments did not c/o discomfort PT-OP-Q Treatments Start: 02/22/19 16:11 Freq: Status: Active Protocol: Document 04/05/19 10:39 HH (Rec: 04/05/19 11:29 [id number]) Cardio Equipment Bicycle (Upright) Duration (Minutes) 5 Resistance 5 Gym Equipment Cable Column (Body Solid) seated hip abd Resistance # 20 Reps/Time 12 x 2 Shuttle Recovery SL squat Resistance #50 and #75 Shuttle Recovery Platform Stable Reps/Time 12 x3 Therapeutic Exercises Standing Exercises step down Standing Exercise Name bosu ball followed by 4 inch step d/t pain Equipment Used bosu ball Reps/Minutes 4 mins Comments (finger touch on rail with 1 UE SLS Side bilateral Equipment Used blue foam Reps/Minutes 20 secs each x 8 Comments standing on blue foam step up Standing Exercise Name (finger touch on rail with 1 UE) Side bilateral Equipment Used bosu ball Reps/Minutes 6 mins PT-OP-T Assessment and Plan Start: 02/22/19 16:11 Freq: Status: Active Protocol: Document 04/05/19 10:39 HH (Rec: 04/05/19 11:29 [id number]) Physical Therapy Assessment Goals activity tolerance Impairment Unable to walk his dog 3x/day or 10k steps a day without pain Short Term Goal (STG) Pt will be able to walk his dog 3x/day with his dog or 10k steps a day with R knee pain no more than 4/10. STG Duration 4 weeks Equipment Driver Goal (LTG) Pt will be able to walk his dog 3x/day with his dog or 10k steps a day with R knee pain no more than 2/10. LTG Duration 8 weeks ROM Impairment Pt lacks of 5 degrees R knee extension and flexion Equipment Driver Goal (LTG) Pt will be able to reach 2 degrees for R knee extension and 140 for R knee flexion to improve his gait quality, especially during initial contact. LTG Duration 8 weeks LEFS Impairment Pt scores 44/80 for LEFS Short Term Goal (STG) Pt will score >48 (20-39% impairment) to improve his quality of life STG Duration 4 weeks [facility] Goal (LTG) Pt will score >62 (1-19% impairment) to improve his quality of life LTG Duration 8 weeks Assessment Summary Assessment SLS on blue foam R= 33s, on floor = 50s. Pt cont to have R knee discomfort during step down, but didnt hurt with SL squat on leg press. Cont focus on single leg balance and eccentric SL squat.
--- NOTE | 2019-04-28 12:14 | PT.OPPOC ---
Physical, Occupational & Speech Therapy At [facility] Current Diagnoses Patellar tendinitis, right knee (04/28/19) Other specified enthesopathies of right lower limb, excluding foot (04/28/19) Visit Care Team Role Provider Type Eliseo Dixon MD Attending Provider Physician Primary Care Provider Specialty: [facility] Address: [address] [place] [address], [facility] [place], [facility] Email: [email or web address] Plan Of Care PT-OP-T Assessment and Plan Start: 02/22/19 16:11 Freq: Status: Active Protocol: Document 04/28/19 11:20 (Rec: 04/28/19 12:09 [id number]) Physical Therapy Assessment Goals uphill and downhill Impairment pain during going up/downhill Short Term Goal (STG) Pt will be able to perform forward single leg step down from 4 inches without discomfort STG Duration 4weeks Long-Term Goal (LTG) Pt will have R knee pain no more than 2 /10 while going up and downhill LTG Duration 8 weeks activity tolerance Impairment Unable to walk his dog 3x/day or 10k steps a day without pain Short Term Goal (STG) Goal met 3/5 Pt will be able to walk his dog 3x/day with his dog or 10k steps a day with R knee pain no more than 4/10. STG Duration 4 weeks Facilitator Goal (LTG) 3/5 cont in progress: Able to walk 12 k and his dog 3 x /day with pain no more than 3 Pt will be able to walk his dog 3x/day with his dog or 10k steps a day with R knee pain no more than 2/10. LTG Duration 8 weeks ROM Impairment Pt lacks of 5 degrees R knee extension and flexion Facilitator Goal (LTG) 3/5 cont in progress Pt reaches 3 degrees of knee extension Pt will be able to reach 2 degrees for R knee extension and 140 for R knee flexion to improve his gait quality, especially during initial contact. LTG Duration 8 weeks LEFS Impairment Pt scores 44/80 for LEFS Short Term Goal (STG) 3/5 goal met Pt will score >48 (20-39% impairment) to improve his quality of life STG Duration 4 weeks Long-Term Goal (LTG) 3/5 cont in progress Pt scores 55/80 on LEFS Pt will score >62 (1-19% impairment) to improve his quality of life LTG Duration 8 weeks Progress Towards Goals Progress Towards Goals Progressing Toward Goals Progress Comments Pt showed improvements with improved ROM, strength and single leg stability. Pt did not c/o discomfort during lateral single leg step down. Also instructed how to use seated knee extension and flexion machine at the gym. Will cont POC 1x every 2 weeks for follow up. Added lateral step down for HEP. Physical Therapy Plan Frequency and Duration Frequency of Treatment Every Other Week Duration of Treatment 8 weeks Plan of Care Start Date 04/28/19 Plan of Care End Date 06/27/19 Next Visit Focus/Plan Next Note Type Treatment Note Next Visit Plan R TKE, leg press single leg balance and strengthening step down Plan of Care Dates Plan of Care Start Date 04/28/19 Plan of Care End Date 06/27/19 Electronically Signed by: Doug Ayers, PT 04/28/19 0346 Please Sign and Return: I have reviewed this Plan of Care and certify that the skilled therapy services above are required to meet the patient?s needs. Physician Signature Date Printed Name and Credentials Clinical Instructor Signature Printed Name and Credentials
--- NOTE | 2019-04-28 12:14 | PT.OTN ---
Current Diagnoses Patellar tendinitis, right knee (04/28/19) Other specified enthesopathies of right lower limb, excluding foot (04/28/19) Physical Therapy Treatment Note PT-OP-A Visit Information Start: 02/22/19 16:11 Freq: Status: Active Protocol: Document 04/28/19 11:20 (Rec: 04/28/19 12:09 [id number]) Out-Patient Physical Therapy Visit Information Visit Information Visit Type Treatment Note Visit Start Time 11:20 Visit Stop Time 12:00 Total Visit Minutes 40 Visit Number 02/11 Number of BOOK BINDER Visits 0 PT-OP-B Current Condition Start: 02/22/19 16:11 Freq: Status: Active Protocol: Document 02/22/19 14:35 HH (Rec: 02/22/19 16:48 HH [email or web address]) Current Condition History of Current Condition Onset Date 3 years ago Current Complaints R knee pain, difficulty in prolonged walking, walking incline/decline. History of Current Condition Pt is a 78yo male presenting to clinic with chronic L knee pain started years ago. Pt does not recall any significant injury but stated his R knee pain started somewhere 3 years ago. He described his pain located below his knee cap and at the joint line sometimes, and felt like sharp pain as got hitting by a chair. His pain has been getting more significant and noticeable within the past year that is the most irritated after prolonged walking/ walking up or downhill. Pt has been marijuana oil/lotion at his R knee and it seems to help him a lot. Pt saw his Dr. Nguyen who believes pt has patella tendinitis. He also received X -ray screen which shows severe patellofemoral joint degeneration, chondrocalanosis and osteopenia. Prior Treatments and Tests X-ray screen which shows severe patellofemoral joint degeneration, chondrocalanosis and osteopenia. Treatment Goals Patient/Caregiver Goals 1. To walk his dog 3x/day up to 10k steps without any knee discomfort 2. Able to climb stairs/ up or downhill without knee discomfort. Personal Factors Other Personal Factors That May Effect HTN Therapy/Recovery Previous heart attack. PT-OP-C Subjective Start: 02/22/19 16:11 Freq: Status: Active Protocol: Document 04/28/19 11:20 (Rec: 04/28/19 12:09 [id number]) OP-PT Subjective Patient Comments Patient Comments Im going to the gym twice a week now. I only have knee pain occasionally around 2-3/ 10 but not as often. Patient Reported Progress Improving PT-OP-D Balance Start: 02/22/19 16:11 Freq: Status: Active Protocol: Document 02/22/19 14:35 HH (Rec: 02/22/19 16:48 HH [email or web address]) Balance Tests Single Limb Standing Single Limb- Right 20s Single Limb- Left 18s PT-OP-F Manual Assessment Start: 02/22/19 16:11 Freq: Status: Active Protocol: Document 02/22/19 14:35 HH (Rec: 02/22/19 16:48 HH [email or web address]) Manual Assessments Soft Tissue Assessment Soft Tissue Mobility Assessment tenderness to pressure at R lateral knee joint line and proximal patellar tendon insertion PT-OP-G Mobility & Gait Start: 02/22/19 16:11 Freq: Status: Active Protocol: Document 02/22/19 14:35 HH (Rec: 02/22/19 16:48 HH [email or web address]) OP Gait Assessment Comments Gait Comments decreased R foot pronation during midstance compared to L . PT-OP-H Neuro Start: 02/22/19 16:11 Freq: Status: Active Protocol: Document 02/22/19 14:35 HH (Rec: 02/22/19 16:48 HH [email or web address]) Deep Tendon Reflex & Clonus Assessment Deep Tendon Reflex Bilateral Achilles Deep Tendon Reflex 2+ Normal Bilateral Patellar Deep Tendon Reflex 2+ Normal PT-OP-J Posture/Palpation/Skin Start: 02/22/19 16:11 Freq: Status: Active Protocol: Document 02/22/19 14:35 HH (Rec: 02/22/19 16:48 HH [email or web address]) Posture Evaluation Position Standing Weight Distribution Weight Shifted Left Knee Posture (R) Genu Varus,(R) Excess Flexion Ankle/Foot Posture (R) Supinated Foot Arch (R) High Arch PT-OP-K Range of Motion Start: 02/22/19 16:11 Freq: Status: Active Protocol: Document 02/25/19 14:34 HH (Rec: 02/25/19 16:23 HH [id number]) Hip Goniometric Range of Motion Hip Right Active Internal Rotation 35 External Rotation 45 Left Active Internal Rotation 45 External Rotation 42 Hip ROM Limitations Hip ROM Limitations Muscle Tone,Pain Comments muscle guarding and pain at end range of L hip IR. PT-OP-L Special Tests Start: 02/22/19 16:11 Freq: Status: Active Protocol: Document 02/25/19 14:34 HH (Rec: 02/25/19 16:23 HH [id number]) Special Tests Foot/Ankle Special Tests calf raise Test Results SL calf raise L=21reps, R= 12reps PT-OP-M Strength Start: 02/22/19 16:11 Freq: Status: Active Protocol: Document 02/22/19 14:35 HH (Rec: 02/22/19 16:48 [email or web address]) Hip Strength Hip Manual Muscle Testing Right Flexion (L2) 5 Normal Extension (S1) 5 Normal Abduction 4+ Good+ Adduction 5 Normal Left Flexion (L2) 5 Normal Extension (S1) 5 Normal Abduction 5 Normal Adduction 5 Normal Knee Strength Knee Manual Muscle Testing Right Flexion (S2) 4+ Good+ Extension (L3) 4+ Good+ Comments did not c/o discomfort Left Flexion (S2) 4+ Good+ Extension (L3) 4+ Good+ Comments did not c/o discomfort PT-OP-Q Treatments Start: 02/22/19 16:11 Freq: Status: Active Protocol: Document 04/28/19 11:20 HH (Rec: 04/28/19 12:13 [id number]) Gym Equipment Cable Column (Body Solid) seated knee ext/ flex Details gym equipment instruction Resistance 20 lbs Reps/Time cues on hip and knee 90 degrees Therapeutic Exercises Supine Exercises R TKE Supine Exercise Name with PT assistance at end range Side right Reps/Minutes 10 secs hold x10 Standing Exercises step down Standing Exercise Name lateral step down then forward step down 4 inch step Side bilateral Equipment Used 4 inch step Reps/Minutes 10 mins Comments minimal discomfort for lateral , but increase with forward step down Manual Therapy Treatment Soft Tissue Mobilization R lateral quad, HS, IT band Mobilization Type Sustained Pressure,Trigger Point Release Intensity/Depth Moderate Body Position Supine Joint Mobilizations patella glide Direction lateral medial Grade III Body Position Supine Reps/Duration 8 mins Self-Care/Home Management Treatment Education Patient Education Body Mechanics,Posture Other Education education on the effects on increasing knee extension on improving heel strike during initial contact. PT-OP-T Assessment and Plan Start: 02/22/19 16:11 Freq: Status: Active Protocol: Document 04/28/19 11:20 (Rec: 04/28/19 12:09 [id number]) Physical Therapy Assessment Goals uphill and downhill Impairment pain during going up/downhill Short Term Goal (STG) Pt will be able to perform forward single leg step down from 4 inches without discomfort STG Duration 4weeks [facility]cf Goal (LTG) Pt will have R knee pain no more than 2 /10 while going up and downhill LTG Duration 8 weeks activity tolerance Impairment Unable to walk his dog 3x/day or 10k steps a day without pain Short Term Goal (STG) Goal met 3/5 Pt will be able to walk his dog 3x/day with his dog or 10k steps a day with R knee pain no more than 4/10. STG Duration 4 weeks Building Operator Goal (LTG) 3/5 cont in progress: Able to walk 12 k and his dog 3 x /day with pain no more than 3 Pt will be able to walk his dog 3x/day with his dog or 10k steps a day with R knee pain no more than 2/10. LTG Duration 8 weeks ROM Impairment Pt lacks of 5 degrees R knee extension and flexion Chcf Goal (LTG) 3/5 cont in progress Pt reaches 3 degrees of knee extension Pt will be able to reach 2 degrees for R knee extension and 140 for R knee flexion to improve his gait quality, especially during initial contact. LTG Duration 8 weeks LEFS Impairment Pt scores 44/80 for LEFS Short Term Goal (STG) 3/5 goal met Pt will score >48 (20-39% impairment) to improve his quality of life STG Duration 4 weeks Building Operator Goal (LTG) 3/5 cont in progress Pt scores 55/80 on LEFS Pt will score >62 (1-19% impairment) to improve his quality of life LTG Duration 8 weeks Progress Towards Goals Progress Towards Goals Progressing Toward Goals Progress Comments Pt showed improvements with improved ROM, strength and single leg stability. Pt did not c/o discomfort during lateral single leg step down. Also instructed how to use seated knee extension and flexion machine at the gym. Will cont POC 1x every 2 weeks for follow up. Added lateral step down for HEP. Physical Therapy Plan Frequency and Duration Frequency of Treatment Every Other Week Duration of Treatment 8 weeks Plan of Care Start Date 04/28/19 Plan of Care End Date 06/27/19 Next Visit Focus/Plan Next Note Type Treatment Note Next Visit Plan R TKE, leg press single leg balance and strengthening step down
--- NOTE | 2019-10-27 09:37 | PT.OPDS ---
Current Diagnoses Patellar tendinitis, right knee (04/28/19) Other specified enthesopathies of right lower limb, excluding foot (04/28/19) Visit Care Team Role Provider Type Eliseo Dixon MD Attending Provider Physician Primary Care Provider Specialty: Family Practice Address: [address] [place] [address], [facility] Email: [email or web address] Visit Number Visit Number 02/11 Discharge Summary PT-OP-T Assessment and Plan Start: 02/22/19 16:11 Freq: Status: Active Protocol: Document 10/27/19 09:36 (Rec: 10/27/19 09:37 [email or web address]) Physical Therapy Assessment Assessment Summary Assessment Pt was doing well during COVID and did not need therapy anymore. D/C from therapy
== END 2019-10-28 08:21 ==
LOC: PHYS 11:15
PROVIDERS: PCP Family Medicine; Visit Provider Family Medicine
DX: M76.51 Patellar tendinitis, right knee (principal); M76.891 Other specified enthesopathies of right lower limb, excluding foot
CPT/HCPCS: 97110; 97140; 97161; 97535

== ENCOUNTER → 2020-01-13 08:18 | Outpatient (CLI) | payer MEDICARE, OTHER, SELFPAY ==
--- NOTE | 2020-01-13 08:19 | DI.US.S_ITS ---
PROCEDURE: US ABD AORTA ANEURYSM SCREEN INDICATIONS: Former smoker; AAA screen TECHNIQUE: Real time scanning was performed of the aorta and iliac arteries, with image documentation. COMPARISON: None. FINDINGS: Aorta: Proximal aortic diameter measures 0.7 cm. Mid-aorta measures 3.4 cm. Distal aortic diameter is 1.7 cm. Iliac arteries: Right common iliac artery measures 0.9 cm. Left common iliac artery measures 1.2 cm. Study limited, secondary to bowel gas. IMPRESSION: Negative for aneurysm. Dictated by: Roque Burroughs M.D. on 01/13/2020 at 8:31 Approved by: Roque Burroughs M.D. on 01/13/2020 at 8:32
== END ==
PROVIDERS: PCP Student in an Organized Health Care Education/Training Program; Referring Provider Student in an Organized Health Care Education/Training Program; Visit Provider Student in an Organized Health Care Education/Training Program
DX: Z13.6 Encounter for screening for cardiovascular disorders (principal); Z87.891 Personal history of nicotine dependence
CPT/HCPCS: 76706

== ENCOUNTER → 2020-01-25 13:52 | Outpatient (CLI) | payer MEDICARE, OTHER, SELFPAY | PROVIDERS: PCP Student in an Organized Health Care Education/Training Program; Referring Provider Nurse Practitioner; Visit Provider Nurse Practitioner | DX: M85.851 Other specified disorders of bone density and structure, right thigh (principal) | CPT/HCPCS: 77080 ==

== ENCOUNTER → 2020-03-14 15:10 | Outpatient (CLI) | payer MEDICARE, OTHER, SELFPAY ==
[2020-03-15 09:04] LABS: Fecal Immunochemical Test Negative (Negative)
== END ==
PROVIDERS: PCP Student in an Organized Health Care Education/Training Program; Referring Provider Student in an Organized Health Care Education/Training Program; Visit Provider Student in an Organized Health Care Education/Training Program
DX: Z12.11 Encounter for screening for malignant neoplasm of colon (principal)
CPT/HCPCS: 82274

== ENCOUNTER → 2020-12-10 11:57 | Outpatient (CLI) | payer MEDICARE, OTHER, SELFPAY ==
[2020-12-10 12:40] LABS: Add Manual Diff / Slide Review NO; Basophils Absolute Auto 100 /uL (0-100); Basophils Percent Auto 1.1 % (0-2); Eosinophils Absolute Auto 400 /uL (0-450); Eosinophils Percent Auto 6.3 % (2-4); Hematocrit 44.2 % (41-53); Hemoglobin 14.6 g/dL (13.5-17.5); Lymphocytes Absolute Auto 1200 /uL (1100-4500); Mean Corpuscular HGB Conc 32.9 % (30-36); Mean Corpuscular Hemoglobin 30.4 PG (26-34); Mean Corpuscular Volume 92.4 fL (80-100); Monocytes Absolute Auto 600 /uL (0-900); Monocytes Percent Auto 10.5 % (3-14); Neutrophils Absolute Auto 3800 /uL (1500-7000); Neutrophils Percent Auto 62.1 % (50-75); Platelet Count 215 X10^3/uL (150-400); Red Blood Cell Count 4.79 X10^6/uL (4.5-5.9); White Blood Cell Count 6.1 X10^3/uL (4.5-11.0)
[2020-12-10 12:48] LABS: Alanine Aminotransferase 28 IU/L (<50); Albumin 4.4 g/dL (3.5-5.0); Albumin Globulin Ratio 1.6 (1.0-2.8); Alkaline Phosphatase 69 U/L (38-126); Aspartate Aminotransferase 33 IU/L (17-59); BUN Creatinine Ratio 26.6 (6-22); Bilirubin Total 0.5 mg/dL (0.2-1.3); Blood Urea Nitrogen 21 mg/dL (9-20); Calcium 9.3 mg/dL (8.4-10.2); Carbon Dioxide 28 mmol/L (22-32); Chloride 104 mmol/L (98-107); Estimated Glomerular Filt Rate > 60.0 mL/min (>60); Globulin 2.7 g/dL (1.7-4.1); Glucose 116 mg/dL (80-110); HEMOLYSIS < 15 (0-50); Potassium 4.5 mmol/L (3.4-5.1); Sodium 139 mmol/L (137-145); Total Protein 7.1 g/dL (6.3-8.2)
[2020-12-10 13:38] LABS: Vitamin B12 348 pg/mL (239-931)
[2020-12-10 13:43] LABS: TSH w/ Reflex to FT4 2.57 uIU/mL (0.47-4.68)
== END ==
PROVIDERS: PCP Student in an Organized Health Care Education/Training Program; Referring Provider Student in an Organized Health Care Education/Training Program; Visit Provider Student in an Organized Health Care Education/Training Program
DX: H55.09 Other forms of nystagmus (principal); I10 Essential (primary) hypertension; R55 Syncope and collapse
CPT/HCPCS: 36415; 80053; 82607; 84443; 85025

== ENCOUNTER 2021-01-29 11:15 | Outpatient (RCR) | payer MEDICARE, OTHER, SELFPAY ==
--- NOTE | 2020-11-01 12:31 | PT.OIE ---
Current Diagnoses Achilles tendinitis, left leg (11/01/20) Past Medical History (Last Updated 01/15/20 @ 12:38 by Zack López MD) Cataracts, bilateral Hearing loss History of tonsillectomy (~1950) Hypertension Measles Mumps Myocardial infarction (~1994) Pneumonia Past Surgical History (Last Updated 11/26/19 @ 21:06 by Chetna Hernandez) Anesthesia History of tonsillectomy (~1950) Visit Care Team Role Provider Type Zack López MD Attending Provider Physician Primary Care Provider Referring Provider Specialty: Internal Medicine Address: [address] [place] [address], [address], [facility] Email: [email or web address] Physical Therapy Initial Evaluation PT-OP-A Visit Information Start: 10/31/20 16:14 Freq: Status: Active Protocol: Document 11/01/20 12:08 (Rec: 11/01/20 12:31 [email or web address]) Out-Patient Physical Therapy Visit Information Visit Information Visit Type Initial Evaluation Visit Start Time 11:15 Visit Stop Time 12:00 Total Visit Minutes 45 Visit Number 03/13 Number of ASSOCIATE PROFESSOR OF ENGINEERING Visits 0 Evaluation Information Evaluation Date 11/01/20 Precautions Precautions HTN PT-OP-B Current Condition Start: 10/31/20 16:14 Freq: Status: Active Protocol: Document 11/01/20 12:08 (Rec: 11/01/20 12:31 [email or web address]) Current Condition History of Current Condition Onset Date 2 months ago Current Complaints L heel and foot pain, difficulty in walking History of Current Condition Zack is a 80 yo male here for his new onset of L heel and foot pain since 2 months ago. He stated he felt a pop sensation one day and his heel started hurting which limits his walking ability. He is feeling bruise when he walks and taking the first step in the morning is painful. He also has pain at the plantar fascia insertion with WB activities. He is still getting 10k steps a day but he has been limping. Pt went to see PCP Dr. López and he rule out PAD. Prior Treatments and Tests PT for his knee 2 years ago with good result. PT-OP-C Subjective Start: 10/31/20 16:14 Freq: Status: Active Protocol: Document 11/01/20 12:08 (Rec: 11/01/20 12:31 [email or web address]) Patient Questionnaires Foot & Ankle Ability Measure- ADL and Sports FAAM-ADL Score 48 FAAM-ADL Impairment 40 to 59% Impaired (Score 33- 49) FAAM-Sport Score 7 FAAM-Sport Impairment 60 to 79% Impaired (Score 6-11 ) Lower Extremity Functional Scale LEFS Score 51 LEFS Impairment 20 to 39% Impaired (Score 48- 62) OP-PT Pain Assessment Location L heel Pain Location Details achilles insertion Intensity 6 Scale Used Numeric (0 - 10) Description Aching Frequency Frequent Pain Aggravating Factors ADL's,Activity,Exercise, Standing,Walking,Stair Climbing Pain Alleviating Factors Inactivity PT-OP-D Balance Start: 10/31/20 16:14 Freq: Status: Active Protocol: Document 11/01/20 12:08 (Rec: 11/01/20 12:31 [email or web address]) Balance Tests Single Limb Standing Single Limb- Right 10 Single Limb- Left 2 PT-OP-F Manual Assessment Start: 10/31/20 16:14 Freq: Status: Active Protocol: Document 11/01/20 12:08 (Rec: 11/01/20 12:31 [email or web address]) Manual Assessments Soft Tissue Assessment Soft Tissue Mobility Assessment significant toncity at medial gastro, pain to pressure at achilles insertion on L toncity at plantar fascia insertion PT-OP-G Mobility & Gait Start: 10/31/20 16:14 Freq: Status: Active Protocol: Document 11/01/20 12:08 (Rec: 11/01/20 12:31 [email or web address]) OP Gait Assessment Comments Gait Comments supinated L foot noted during stance phase, lack of DF during stance phase on L PT-OP-K Range of Motion Start: 10/31/20 16:14 Freq: Status: Active Protocol: Document 11/01/20 12:08 (Rec: 11/01/20 12:31 [email or web address]) Ankle and Foot Goniometric Range of Motion Ankle and Foot Right Active Testing Position Supine Dorsiflexion with Knee Flexed 20 Dorsiflexion with Knee Extended 14 Plantarflexion 45 Left Active Testing Position Supine Dorsiflexion with Knee Flexed 5 Dorsiflexion with Knee Extended 14 Plantarflexion 44 Comments mod pain with DF PT-OP-L Special Tests Start: 10/31/20 16:14 Freq: Status: Active Protocol: Document 11/01/20 12:08 (Rec: 11/01/20 12:31 [email or web address]) Special Tests Foot/Ankle Special Tests fay test Test Results -ve calf raise Test Results will assess next time PT-OP-M Strength Start: 10/31/20 16:14 Freq: Status: Active Protocol: Document 11/01/20 12:08 (Rec: 11/01/20 12:31 [email or web address]) Ankle/Foot Strength Ankle and Foot Manual Muscle Testing Right Dorsiflexion (L4) 5 Normal Plantarflexion (S1) 5 Normal Left Dorsiflexion (L4) 4+ Good+ Plantarflexion (S1) 4- Good- PT-OP-Q Treatments Start: 10/31/20 16:14 Freq: Status: Active Protocol: Document 11/01/20 12:08 (Rec: 11/01/20 12:31 [email or web address]) Therapeutic Exercises Sitting Exercises soft tissue release Sitting Exercise Name pt uses massage gun at home on medial calf and plantar fascia Side left Comments for HEP calf stretch Sitting Exercise Name knee extended Side left Equipment Used belt Reps/Minutes 20 s hold x5 Comments for HEP Manual Therapy Treatment Soft Tissue Mobilization calf Body Location achilles tendon and calf Mobilization Type Rolling,Sustained Pressure, Trigger Point Release Intensity/Depth Moderate Body Position Prone PT-OP-T Assessment and Plan Start: 10/31/20 16:14 Freq: Status: Active Protocol: Document 11/01/20 12:08 (Rec: 11/01/20 12:31 [email or web address]) Physical Therapy Assessment Rehab Potential Rehabilitation Potential Excellent Evaluation Complexity Number of Personal Factors/Comorbidities 1-2 Number of Body Systems Impaired 1-2 Clinical Presentation at Evaluation Stable Impairments Impairments Activity Tolerance,Balance, Functional Activities, Functional Mobility,Gait,Pain, Posture,ROM,Soft Tissue Mobility,Strength,Transfers Goals walk Impairment antalgic gait noted Short Term Goal (STG) pt will be able to complete 5k steps daily with pain no more than 4/10 STG Duration 4 weeks Penitentiary Goal (LTG) pt will be able to normalize his gait to complete >10k steps daily without discomfort LTG Duration 8 weeks FAAM Impairment pt scores on 48 FAAM (ADLs) Short Term Goal (STG) pt will score >60 on FAAM ( ADLs) to show improved ankle mobility and strength for ADLs STG Duration 8 weeks LEFS Impairment pt scores 51 on LEFS Short Term Goal (STG) pt will be able to score >60 on LEFS to show improved LE strength and mobility STG Duration 4 weeks Penitentiary Goal (LTG) pt will be able to score > 66 on LEFS to show improved LE strength and mobility LTG Duration 8 weeks Assessment Summary Assessment Zack is a 80 yo male here for his L heel and foot pain since 2 months ago. Upon assessment, pt presents signs of L achilles tendonopathy and plantar fasciitis. His Fay test = -ve. He does has limited ankle DF with a high arch foot position with WB activities. Pt also tends to walk with supinated L foot during stance phase which places his foot into PF and inverted position. pt will benefit from skilled therapy to increase his ankle DF, achilles and ankle strength which allows him to normalize his gait and return to his daily walking routine >10 k steps. Physical Therapy Plan Frequency and Duration Frequency of Treatment 1-2x/wk Duration of Treatment 8 weeks Plan of Care Start Date 11/01/20 Plan of Care End Date 12/31/20 Therapeutic Interventions Therapeutic Interventions Aquatic Therapy,Balance Training,Gait Training,Home Exercise Program,Joint Mobilizations,Manual Therapy, Neuromuscular Re-education, Orthotic/Prosthetic Management ,Patient/Caregiver Education, Self-Care/Home Management,Soft Tissue Mobilization,Taping, Therapeutic Activities, Therapeutic Exercises Modalities Cold Pack/Ice Massage,Electric Stimulation,Hot Packs, Traction- Mechanical, Ultrasound Next Visit Focus/Plan Next Note Type Treatment Note Next Visit Plan review stretching STM on calf and plantar fascia ankle PF in non WB position ankle DF strengthening heel lift if needed.
--- NOTE | 2020-11-01 12:31 | PT.OPPOC ---
Physical, Occupational & Speech Therapy At [facility] Current Diagnoses Achilles tendinitis, left leg (11/01/20) Visit Care Team Role Provider Type Zack López MD Attending Provider Physician Primary Care Provider Referring Provider Specialty: Internal Medicine Address: [address] [place] [address], [address], [address] Email: [email or web address] Plan Of Care PT-OP-T Assessment and Plan Start: 10/31/20 16:14 Freq: Status: Active Protocol: Document 11/01/20 12:08 (Rec: 11/01/20 12:31 [email or web address]) Physical Therapy Assessment Rehab Potential Rehabilitation Potential Excellent Evaluation Complexity Number of Personal Factors/Comorbidities 1-2 Number of Body Systems Impaired 1-2 Clinical Presentation at Evaluation Stable Impairments Impairments Activity Tolerance,Balance, Functional Activities, Functional Mobility,Gait,Pain, Posture,ROM,Soft Tissue Mobility,Strength,Transfers Goals walk Impairment antalgic gait noted Short Term Goal (STG) pt will be able to complete 5k steps daily with pain no more than 4/10 STG Duration 4 weeks Halfway Goal (LTG) pt will be able to normalize his gait to complete >10k steps daily without discomfort LTG Duration 8 weeks FAAM Impairment pt scores on 48 FAAM (ADLs) Short Term Goal (STG) pt will score >60 on FAAM ( ADLs) to show improved ankle mobility and strength for ADLs STG Duration 8 weeks LEFS Impairment pt scores 51 on LEFS Short Term Goal (STG) pt will be able to score >60 on LEFS to show improved LE strength and mobility STG Duration 4 weeks Halfway Goal (LTG) pt will be able to score > 66 on LEFS to show improved LE strength and mobility LTG Duration 8 weeks Assessment Summary Assessment Zack is a 80 yo male here for his L heel and foot pain since 2 months ago. Upon assessment, pt presents signs of L achilles tendonopathy and plantar fasciitis. His Fay test = -ve. He does has limited ankle DF with a high arch foot position with WB activities. Pt also tends to walk with supinated L foot during stance phase which places his foot into PF and inverted position. pt will benefit from skilled therapy to increase his ankle DF, achilles and ankle strength which allows him to normalize his gait and return to his daily walking routine >10 k steps. Physical Therapy Plan Frequency and Duration Frequency of Treatment 1-2x/wk Duration of Treatment 8 weeks Plan of Care Start Date 11/01/20 Plan of Care End Date 12/31/20 Therapeutic Interventions Therapeutic Interventions Aquatic Therapy,Balance Training,Gait Training,Home Exercise Program,Joint Mobilizations,Manual Therapy, Neuromuscular Re-education, Orthotic/Prosthetic Management ,Patient/Caregiver Education, Self-Care/Home Management,Soft Tissue Mobilization,Taping, Therapeutic Activities, Therapeutic Exercises Modalities Cold Pack/Ice Massage,Electric Stimulation,Hot Packs, Traction- Mechanical, Ultrasound Next Visit Focus/Plan Next Note Type Treatment Note Next Visit Plan review stretching STM on calf and plantar fascia ankle PF in non WB position ankle DF strengthening heel lift if needed. Plan of Care Dates Plan of Care Start Date 11/01/20 Plan of Care End Date 12/31/20 Electronically Signed by: Doug Ayers, PT 11/01/20 [id number] Please Sign and Return: I have reviewed this Plan of Care and certify that the skilled therapy services above are required to meet the patient?s needs. Physician Signature Date Printed Name and Credentials Clinical Instructor Signature Printed Name and Credentials
--- NOTE | 2020-11-07 12:15 | PT.OTN ---
Current Diagnoses Achilles tendinitis, left leg (11/07/20) Physical Therapy Treatment Note PT-OP-A Visit Information Start: 10/31/20 16:14 Freq: Status: Active Protocol: Document 11/07/20 11:17 HH (Rec: 11/07/20 12:15 [id number]) Out-Patient Physical Therapy Visit Information Visit Information Visit Type Treatment Note Visit Start Time 11:16 Visit Stop Time 12:00 Total Visit Minutes 44 Visit Number 04/13 Number of CERTIFIED JUVENILE [employer]ATION OFFICER Visits 0 PT-OP-B Current Condition Start: 10/31/20 16:14 Freq: Status: Active Protocol: Document 11/01/20 12:08 HH (Rec: 11/01/20 12:31 [email or web address]) Current Condition History of Current Condition Onset Date 2 months ago Current Complaints L heel and foot pain, difficulty in walking History of Current Condition Zack is a 80 yo male here for his new onset of L heel and foot pain since 2 months ago. He stated he felt a pop sensation one day and his heel started hurting which limits his walking ability. He is feeling bruise when he walks and taking the first step in the morning is painful. He also has pain at the plantar fascia insertion with WB activities. He is still getting 10k steps a day but he has been limping. Pt went to see PCP Dr. López and he rule out PAD. Prior Treatments and Tests PT for his knee 2 years ago with good result. PT-OP-C Subjective Start: 10/31/20 16:14 Freq: Status: Active Protocol: Document 11/07/20 11:17 HH (Rec: 11/07/20 12:15 [email or web address]) OP-PT Subjective Patient Comments Patient Comments Im feeling better with slightly less pain so far which is not as intense. Nicole been doing my stretches and massage gun couple times a day . Patient Reported Progress Improving PT-OP-D Balance Start: 10/31/20 16:14 Freq: Status: Active Protocol: Document 11/01/20 12:08 HH (Rec: 11/01/20 12:31 [email or web address]) Balance Tests Single Limb Standing Single Limb- Right 10 Single Limb- Left 2 PT-OP-F Manual Assessment Start: 10/31/20 16:14 Freq: Status: Active Protocol: Document 11/01/20 12:08 HH (Rec: 11/01/20 12:31 [email or web address]) Manual Assessments Soft Tissue Assessment Soft Tissue Mobility Assessment significant toncity at medial gastro, pain to pressure at achilles insertion on L toncity at plantar fascia insertion PT-OP-G Mobility & Gait Start: 10/31/20 16:14 Freq: Status: Active Protocol: Document 11/01/20 12:08 HH (Rec: 11/01/20 12:31 [email or web address]) OP Gait Assessment Comments Gait Comments supinated L foot noted during stance phase, lack of DF during stance phase on L PT-OP-K Range of Motion Start: 10/31/20 16:14 Freq: Status: Active Protocol: Document 11/01/20 12:08 HH (Rec: 11/01/20 12:31 [email or web address]) Ankle and Foot Goniometric Range of Motion Ankle and Foot Right Active Testing Position Supine Dorsiflexion with Knee Flexed 20 Dorsiflexion with Knee Extended 14 Plantarflexion 45 Left Active Testing Position Supine Dorsiflexion with Knee Flexed 5 Dorsiflexion with Knee Extended 14 Plantarflexion 44 Comments mod pain with DF PT-OP-L Special Tests Start: 10/31/20 16:14 Freq: Status: Active Protocol: Document 11/01/20 12:08 (Rec: 11/01/20 12:31 [email or web address]) Special Tests Foot/Ankle Special Tests kraft test Test Results -ve calf raise Test Results will assess next time PT-OP-M Strength Start: 10/31/20 16:14 Freq: Status: Active Protocol: Document 11/01/20 12:08 (Rec: 11/01/20 12:31 [email or web address]) Ankle/Foot Strength Ankle and Foot Manual Muscle Testing Right Dorsiflexion (L4) 5 Normal Plantarflexion (S1) 5 Normal Left Dorsiflexion (L4) 4+ Good+ Plantarflexion (S1) 4- Good- PT-OP-Q Treatments Start: 10/31/20 16:14 Freq: Status: Active Protocol: Document 11/07/20 11:17 HH (Rec: 11/07/20 12:15 [id number]) Cardio Equipment Bicycle (Upright) Duration (Minutes) 5 Resistance 5 Therapeutic Exercises Sitting Exercises short foot Side left Comments for HEP 2 way ankle Sitting Exercise Name PF and eversion Resistance yellow band Reps/Minutes 10 x 2 Comments for HEP calf stretch Sitting Exercise Name knee extended Side left Equipment Used belt Reps/Minutes 20 s hold x5 Comments for HEP Standing Exercises calf raise Standing Exercise Name concentric and iso Side bilateral Reps/Minutes 5 sec hold at topx 10 Comments for HEP Manual Therapy Treatment Soft Tissue Mobilization calf Body Location achilles tendon and calf Mobilization Type Rolling,Sustained Pressure, Trigger Point Release Intensity/Depth Moderate Body Position Prone Joint Mobilizations calcaneus Direction lateral and medial glide Grade III Body Position Hooklying PT-OP-T Assessment and Plan Start: 10/31/20 16:14 Freq: Status: Active Protocol: Document 11/07/20 11:17 HH (Rec: 11/07/20 12:15 [id number]) Physical Therapy Assessment Goals walk Impairment antalgic gait noted Short Term Goal (STG) pt will be able to complete 5k steps daily with pain no more than 4/10 STG Duration 4 weeks Care Home Goal (LTG) pt will be able to normalize his gait to complete >10k steps daily without discomfort LTG Duration 8 weeks FAAM Impairment pt scores on 48 FAAM (ADLs) Short Term Goal (STG) pt will score >60 on FAAM ( ADLs) to show improved ankle mobility and strength for ADLs STG Duration 8 weeks LEFS Impairment pt scores 51 on LEFS Short Term Goal (STG) pt will be able to score >60 on LEFS to show improved LE strength and mobility STG Duration 4 weeks Care Home Goal (LTG) pt will be able to score > 66 on LEFS to show improved LE strength and mobility LTG Duration 8 weeks Assessment Summary Assessment pt reports progress with reduced pain. Added gravity eliminated ankle strengthening ex and short foot ex. Spent time educating pt to wear shoes with heel support to reduce lateral movement since his shoewears show excessive wearing on outer portion Physical Therapy Plan Frequency and Duration Frequency of Treatment 1-2x/wk Duration of Treatment 8 weeks Plan of Care Start Date 11/01/20 Plan of Care End Date 12/31/20 Therapeutic Interventions Therapeutic Interventions Aquatic Therapy,Balance Training,Gait Training,Home Exercise Program,Joint Mobilizations,Manual Therapy, Neuromuscular Re-education, Orthotic/Prosthetic Management ,Patient/Caregiver Education, Self-Care/Home Management,Soft Tissue Mobilization,Taping, Therapeutic Activities, Therapeutic Exercises Modalities Cold Pack/Ice Massage,Electric Stimulation,Hot Packs, Traction- Mechanical, Ultrasound Next Visit Focus/Plan Next Note Type Treatment Note Next Visit Plan review stretching STM on calf and plantar fascia ankle PF in non WB position ankle DF strengthening heel lift if needed.
--- NOTE | 2020-11-21 15:26 | PT.OTN ---
Current Diagnoses Achilles tendinitis, left leg (11/21/20) Physical Therapy Treatment Note PT-OP-A Visit Information Start: 10/31/20 16:14 Freq: Status: Active Protocol: Document 11/21/20 15:18 OF (Rec: 11/21/20 15:26 OF [email or web address]) Out-Patient Physical Therapy Visit Information Visit Information Visit Type Treatment Note Visit Start Time 12:58 Visit Stop Time 13:40 Total Visit Minutes 42 Visit Number 05/11 Evaluation Information Evaluation Date 11/01/20 Precautions Precautions HTN PT-OP-B Current Condition Start: 10/31/20 16:14 Freq: Status: Active Protocol: Document 11/01/20 12:08 HH (Rec: 11/01/20 12:31 HH [email or web address]) Current Condition History of Current Condition Onset Date 2 months ago Current Complaints L heel and foot pain, difficulty in walking History of Current Condition Zack is a 80 yo male here for his new onset of L heel and foot pain since 2 months ago. He stated he felt a pop sensation one day and his heel started hurting which limits his walking ability. He is feeling bruise when he walks and taking the first step in the morning is painful. He also has pain at the plantar fascia insertion with WB activities. He is still getting 10k steps a day but he has been limping. Pt went to see PCP Dr. López and he rule out PAD. Prior Treatments and Tests PT for his knee 2 years ago with good result. PT-OP-C Subjective Start: 10/31/20 16:14 Freq: Status: Active Protocol: Document 11/21/20 15:18 OF (Rec: 11/21/20 15:26 OF [email or web address]) OP-PT Subjective Patient Comments Patient Comments Im feeling better, my L foot is not as painful Patient Reported Progress Improving OP-PT Pain Assessment Pain Assessment Grid Paper Pain Assessment Grid Completed No Location L heel Pain Location Details achilles insertion Intensity 8 Scale Used Numeric (0 - 10) Description Aching Description- Other only when barefoot Frequency Frequent Pain Aggravating Factors ADL's,Activity,Exercise, Standing,Walking,Stair Climbing Pain Alleviating Factors Inactivity PT-OP-D Balance Start: 10/31/20 16:14 Freq: Status: Active Protocol: Document 11/01/20 12:08 HH (Rec: 11/01/20 12:31 HH [email or web address]) Balance Tests Single Limb Standing Single Limb- Right 10 Single Limb- Left 2 PT-OP-F Manual Assessment Start: 10/31/20 16:14 Freq: Status: Active Protocol: Document 11/01/20 12:08 HH (Rec: 11/01/20 12:31 [email or web address]) Manual Assessments Soft Tissue Assessment Soft Tissue Mobility Assessment significant toncity at medial gastro, pain to pressure at achilles insertion on L toncity at plantar fascia insertion PT-OP-G Mobility & Gait Start: 10/31/20 16:14 Freq: Status: Active Protocol: Document 11/01/20 12:08 HH (Rec: 11/01/20 12:31 [email or web address]) OP Gait Assessment Comments Gait Comments supinated L foot noted during stance phase, lack of DF during stance phase on L PT-OP-K Range of Motion Start: 10/31/20 16:14 Freq: Status: Active Protocol: Document 11/01/20 12:08 HH (Rec: 11/01/20 12:31 [email or web address]) Ankle and Foot Goniometric Range of Motion Ankle and Foot Right Active Testing Position Supine Dorsiflexion with Knee Flexed 20 Dorsiflexion with Knee Extended 14 Plantarflexion 45 Left Active Testing Position Supine Dorsiflexion with Knee Flexed 5 Dorsiflexion with Knee Extended 14 Plantarflexion 44 Comments mod pain with DF PT-OP-L Special Tests Start: 10/31/20 16:14 Freq: Status: Active Protocol: Document 11/01/20 12:08 HH (Rec: 11/01/20 12:31 [email or web address]) Special Tests Foot/Ankle Special Tests kraft test Test Results -ve calf raise Test Results will assess next time PT-OP-M Strength Start: 10/31/20 16:14 Freq: Status: Active Protocol: Document 11/01/20 12:08 HH (Rec: 11/01/20 12:31 [email or web address]) Ankle/Foot Strength Ankle and Foot Manual Muscle Testing Right Dorsiflexion (L4) 5 Normal Plantarflexion (S1) 5 Normal Left Dorsiflexion (L4) 4+ Good+ Plantarflexion (S1) 4- Good- PT-OP-Q Treatments Start: 10/31/20 16:14 Freq: Status: Active Protocol: Document 11/21/20 15:18 OF (Rec: 11/21/20 15:26 OF [email or web address]) Therapeutic Exercises Sitting Exercises 2 way ankle Sitting Exercise Name PF and eversion Resistance yellow band Reps/Minutes 10 x 2 Comments for HEP soft tissue release Sitting Exercise Name pt uses massage gun at home on medial calf and plantar fascia Side left Comments for HEP calf stretch Sitting Exercise Name knee extended Side left Equipment Used belt Reps/Minutes 20 s hold x5 Comments for HEP Standing Exercises monsterwalks Side bilateral Resistance TB3 Reps/Minutes 3x20ft gastroc/soleus Side bilateral Reps/Minutes [id number] Comments standing with mary calf raise Standing Exercise Name concentric and iso Side bilateral Reps/Minutes 5 sec hold at top 10sec Comments for HEP Manual Therapy Treatment Soft Tissue Mobilization calf Body Location achilles tendon and calf Mobilization Type Rolling,Sustained Pressure, Trigger Point Release Intensity/Depth Moderate Body Position Prone Joint Mobilizations calcaneus Direction lateral and medial glide Grade III Body Position Hooklying Reps/Duration 10min Self-Care/Home Management Treatment Education Patient Education Home Exercise Program PT-OP-T Assessment and Plan Start: 10/31/20 16:14 Freq: Status: Active Protocol: Document 11/21/20 15:18 OF (Rec: 11/21/20 15:26 OF [email or web address]) Physical Therapy Assessment Rehab Potential Rehabilitation Potential Good Evaluation Complexity Number of Personal Factors/Comorbidities 1-2 Number of Body Systems Impaired 1-2 Clinical Presentation at Evaluation Stable Impairments Impairments Activity Tolerance,Balance, Functional Activities, Functional Mobility,Gait,Pain, Posture,ROM,Soft Tissue Mobility,Strength,Transfers Goals walk Impairment antalgic gait noted Short Term Goal (STG) pt will be able to complete 5k steps daily with pain no more than 4/10 STG Duration 4 weeks Concrete Boom Operator Goal (LTG) pt will be able to normalize his gait to complete >10k steps daily without discomfort LTG Duration 8 weeks FAAM Impairment pt scores on 48 FAAM (ADLs) Short Term Goal (STG) pt will score >60 on FAAM ( ADLs) to show improved ankle mobility and strength for ADLs STG Duration 8 weeks LEFS Impairment pt scores 51 on LEFS Short Term Goal (STG) pt will be able to score >60 on LEFS to show improved LE strength and mobility STG Duration 4 weeks Skilled Nursing Goal (LTG) pt will be able to score > 66 on LEFS to show improved LE strength and mobility LTG Duration 8 weeks Progress Towards Goals Progress Towards Goals Progressing Toward Goals Assessment Summary Assessment Zack has new shoes, agreeable to adding supportive sandals at home and avoiding barefoot at home. He states he has already walked his dogs today, no other HEP. He demonstrates good awareness of HEP and is motivated with questions regarding biomechanics Physical Therapy Plan Frequency and Duration Frequency of Treatment 1-2x/wk Duration of Treatment 8 weeks Plan of Care Start Date 11/01/20 Plan of Care End Date 12/31/20 Next Visit Focus/Plan Next Note Type Treatment Note Next Visit Plan progress calf mobility/ strengthening, hip stability, encourage supportive footwear
--- NOTE | 2020-11-30 12:18 | PT.OTN ---
Current Diagnoses Achilles tendinitis, left leg (11/30/20) Physical Therapy Treatment Note PT-OP-A Visit Information Start: 10/31/20 16:14 Freq: Status: Active Protocol: Document 11/30/20 11:16 (Rec: 11/30/20 12:17 [id number]) Out-Patient Physical Therapy Visit Information Visit Information Visit Type Treatment Note Visit Start Time 11:18 Visit Stop Time 12:00 Total Visit Minutes 42 Visit Number 06/11 PT-OP-B Current Condition Start: 10/31/20 16:14 Freq: Status: Active Protocol: Document 11/01/20 12:08 HH (Rec: 11/01/20 12:31 [email or web address]) Current Condition History of Current Condition Onset Date 2 months ago Current Complaints L heel and foot pain, difficulty in walking History of Current Condition Zack is a 80 yo male here for his new onset of L heel and foot pain since 2 months ago. He stated he felt a pop sensation one day and his heel started hurting which limits his walking ability. He is feeling bruise when he walks and taking the first step in the morning is painful. He also has pain at the plantar fascia insertion with WB activities. He is still getting 10k steps a day but he has been limping. Pt went to see PCP Dr. López and he rule out PAD. Prior Treatments and Tests PT for his knee 2 years ago with good result. PT-OP-C Subjective Start: 10/31/20 16:14 Freq: Status: Active Protocol: Document 11/30/20 11:16 (Rec: 11/30/20 12:17 [id number]) OP-PT Subjective Patient Comments Patient Comments My pain comes and goes. Sometimes I have no discomfort and sometimes it hurts a lot especially after driving a while and tried to take the first step. Patient Reported Progress Improving PT-OP-D Balance Start: 10/31/20 16:14 Freq: Status: Active Protocol: Document 11/01/20 12:08 (Rec: 11/01/20 12:31 [email or web address]) Balance Tests Single Limb Standing Single Limb- Right 10 Single Limb- Left 2 PT-OP-F Manual Assessment Start: 10/31/20 16:14 Freq: Status: Active Protocol: Document 11/01/20 12:08 (Rec: 11/01/20 12:31 [email or web address]) Manual Assessments Soft Tissue Assessment Soft Tissue Mobility Assessment significant toncity at medial gastro, pain to pressure at achilles insertion on L toncity at plantar fascia insertion PT-OP-G Mobility & Gait Start: 10/31/20 16:14 Freq: Status: Active Protocol: Document 11/01/20 12:08 (Rec: 11/01/20 12:31 [email or web address]) OP Gait Assessment Comments Gait Comments supinated L foot noted during stance phase, lack of DF during stance phase on L PT-OP-K Range of Motion Start: 10/31/20 16:14 Freq: Status: Active Protocol: Document 11/01/20 12:08 (Rec: 11/01/20 12:31 [email or web address]) Ankle and Foot Goniometric Range of Motion Ankle and Foot Right Active Testing Position Supine Dorsiflexion with Knee Flexed 20 Dorsiflexion with Knee Extended 14 Plantarflexion 45 Left Active Testing Position Supine Dorsiflexion with Knee Flexed 5 Dorsiflexion with Knee Extended 14 Plantarflexion 44 Comments mod pain with DF PT-OP-L Special Tests Start: 10/31/20 16:14 Freq: Status: Active Protocol: Document 11/01/20 12:08 (Rec: 11/01/20 12:31 [email or web address]) Special Tests Foot/Ankle Special Tests kraft test Test Results -ve calf raise Test Results will assess next time PT-OP-M Strength Start: 10/31/20 16:14 Freq: Status: Active Protocol: Document 11/01/20 12:08 (Rec: 11/01/20 12:31 [email or web address]) Ankle/Foot Strength Ankle and Foot Manual Muscle Testing Right Dorsiflexion (L4) 5 Normal Plantarflexion (S1) 5 Normal Left Dorsiflexion (L4) 4+ Good+ Plantarflexion (S1) 4- Good- PT-OP-Q Treatments Start: 10/31/20 16:14 Freq: Status: Active Protocol: Document 11/30/20 11:16 HH (Rec: 11/30/20 12:17 [id number]) Cardio Equipment Bicycle (Upright) Duration (Minutes) 5 Resistance 5 Therapeutic Exercises Sitting Exercises toe raise Side bilateral Reps/Minutes 15 x2 Comments for HEP Standing Exercises gastroc/soleus Side bilateral Reps/Minutes [id number] Comments standing with mary, report pain , change to standing lunge stretch calf raise Standing Exercise Name concentric Side bilateral Reps/Minutes 10 reps Comments for HEP Manual Therapy Treatment Soft Tissue Mobilization calf Body Location achilles tendon and calf Mobilization Type Rolling,Sustained Pressure, Trigger Point Release Intensity/Depth Moderate Body Position Prone PT-OP-T Assessment and Plan Start: 10/31/20 16:14 Freq: Status: Active Protocol: Document 11/30/20 11:16 (Rec: 11/30/20 12:17 [id number]) Physical Therapy Assessment Goals walk Impairment antalgic gait noted Short Term Goal (STG) pt will be able to complete 5k steps daily with pain no more than 4/10 STG Duration 4 weeks Shelter Goal (LTG) pt will be able to normalize his gait to complete >10k steps daily without discomfort LTG Duration 8 weeks FAAM Impairment pt scores on 48 FAAM (ADLs) Short Term Goal (STG) pt will score >60 on FAAM ( ADLs) to show improved ankle mobility and strength for ADLs STG Duration 8 weeks LEFS Impairment pt scores 51 on LEFS Short Term Goal (STG) pt will be able to score >60 on LEFS to show improved LE strength and mobility STG Duration 4 weeks Shelter Goal (LTG) pt will be able to score > 66 on LEFS to show improved LE strength and mobility LTG Duration 8 weeks Assessment Summary Assessment pt reports occasional pain and most severe after sitting for awhile and tried to take the first step. Educated him to stretch before bed as well, along with using <5/10 pain scale for doing his ex as tolerated. He expressed good understanding. Physical Therapy Plan Frequency and Duration Frequency of Treatment 1-2x/wk Duration of Treatment 8 weeks Plan of Care Start Date 11/01/20 Plan of Care End Date 12/31/20 Therapeutic Interventions Therapeutic Interventions Aquatic Therapy,Balance Training,Gait Training,Home Exercise Program,Joint Mobilizations,Manual Therapy, Neuromuscular Re-education, Orthotic/Prosthetic Management ,Patient/Caregiver Education, Self-Care/Home Management,Soft Tissue Mobilization,Taping, Therapeutic Activities, Therapeutic Exercises Modalities Cold Pack/Ice Massage,Electric Stimulation,Hot Packs, Traction- Mechanical, Ultrasound Next Visit Focus/Plan Next Note Type Treatment Note Next Visit Plan progress calf mobility/ strengthening, hip stability, encourage supportive footwear
--- NOTE | 2020-12-14 12:25 | PT.OTN ---
Current Diagnoses Achilles tendinitis, left leg (12/14/20) Physical Therapy Treatment Note PT-OP-A Visit Information Start: 10/31/20 16:14 Freq: Status: Active Protocol: Document 12/14/20 11:19 (Rec: 12/14/20 12:25 [id number]) Out-Patient Physical Therapy Visit Information Visit Information Visit Type Treatment Note Visit Start Time 11:18 Visit Stop Time 12:11 Total Visit Minutes 53 Visit Number 07/11 PT-OP-B Current Condition Start: 10/31/20 16:14 Freq: Status: Active Protocol: Document 11/01/20 12:08 HH (Rec: 11/01/20 12:31 [email or web address]) Current Condition History of Current Condition Onset Date 2 months ago Current Complaints L heel and foot pain, difficulty in walking History of Current Condition Zack is a 80 yo male here for his new onset of L heel and foot pain since 2 months ago. He stated he felt a pop sensation one day and his heel started hurting which limits his walking ability. He is feeling bruise when he walks and taking the first step in the morning is painful. He also has pain at the plantar fascia insertion with WB activities. He is still getting 10k steps a day but he has been limping. Pt went to see PCP Dr. López and he rule out PAD. Prior Treatments and Tests PT for his knee 2 years ago with good result. PT-OP-C Subjective Start: 10/31/20 16:14 Freq: Status: Active Protocol: Document 12/14/20 11:19 (Rec: 12/14/20 12:25 [id number]) OP-PT Subjective Patient Comments Patient Comments It doesnt bother me at night now. But its really hurting in the morning when i walked my dog. I saw my logistics director this thursday and she said there's a bone spur at the heel. She recommended if PT can do KT tape , or trial for super feet insole. She might do the steroid injection to the planter fascia. Patient Reported Progress Improving PT-OP-D Balance Start: 10/31/20 16:14 Freq: Status: Active Protocol: Document 11/01/20 12:08 (Rec: 11/01/20 12:31 [email or web address]) Balance Tests Single Limb Standing Single Limb- Right 10 Single Limb- Left 2 PT-OP-F Manual Assessment Start: 10/31/20 16:14 Freq: Status: Active Protocol: Document 11/01/20 12:08 (Rec: 11/01/20 12:31 [email or web address]) Manual Assessments Soft Tissue Assessment Soft Tissue Mobility Assessment significant toncity at medial gastro, pain to pressure at achilles insertion on L toncity at plantar fascia insertion PT-OP-G Mobility & Gait Start: 10/31/20 16:14 Freq: Status: Active Protocol: Document 11/01/20 12:08 HH (Rec: 11/01/20 12:31 [email or web address]) OP Gait Assessment Comments Gait Comments supinated L foot noted during stance phase, lack of DF during stance phase on L PT-OP-K Range of Motion Start: 10/31/20 16:14 Freq: Status: Active Protocol: Document 11/01/20 12:08 HH (Rec: 11/01/20 12:31 [email or web address]) Ankle and Foot Goniometric Range of Motion Ankle and Foot Right Active Testing Position Supine Dorsiflexion with Knee Flexed 20 Dorsiflexion with Knee Extended 14 Plantarflexion 45 Left Active Testing Position Supine Dorsiflexion with Knee Flexed 5 Dorsiflexion with Knee Extended 14 Plantarflexion 44 Comments mod pain with DF PT-OP-L Special Tests Start: 10/31/20 16:14 Freq: Status: Active Protocol: Document 11/01/20 12:08 HH (Rec: 11/01/20 12:31 [email or web address]) Special Tests Foot/Ankle Special Tests kraft test Test Results -ve calf raise Test Results will assess next time PT-OP-M Strength Start: 10/31/20 16:14 Freq: Status: Active Protocol: Document 11/01/20 12:08 HH (Rec: 11/01/20 12:31 [email or web address]) Ankle/Foot Strength Ankle and Foot Manual Muscle Testing Right Dorsiflexion (L4) 5 Normal Plantarflexion (S1) 5 Normal Left Dorsiflexion (L4) 4+ Good+ Plantarflexion (S1) 4- Good- PT-OP-Q Treatments Start: 10/31/20 16:14 Freq: Status: Active Protocol: Document 12/14/20 11:19 HH (Rec: 12/14/20 12:25 HH [id number]) Cardio Equipment Bicycle (Upright) Duration (Minutes) 8 Resistance 5 Other no discomfort Therapeutic Exercises Standing Exercises gastroc/soleus Side bilateral Reps/Minutes [id number] Comments lunge stance, L foot at back calf raise Standing Exercise Name on step Side bilateral Reps/Minutes 10 reps Comments for HEP Gait Training Gait Activity heel toe Comments educated pt to start walking with heel strike Manual Therapy Treatment Joint Mobilizations calcaneus Direction lateral and medial glide Grade III Body Position Hooklying Reps/Duration 10min Taping L heel Type of Tape Kinesio Tape Comments 1 I strip from lower calf to mid foot Self-Care/Home Management Treatment Education Patient Education Body Mechanics,Home Exercise Program,Joint Protection,Pain Management,Posture,Safety Other Education recommended pt to reduce his steps down to 5k a day to reduce mechanical loading at L achilles and plantar fascia Orthotic/Prosthetic Management and Training Treatment Details of Training placed 1/8 x2 cork heel lift in L shoes PT-OP-T Assessment and Plan Start: 10/31/20 16:14 Freq: Status: Active Protocol: Document 12/14/20 11:19 (Rec: 12/14/20 12:25 [id number]) Physical Therapy Assessment Goals walk Impairment antalgic gait noted Short Term Goal (STG) pt will be able to complete 5k steps daily with pain no more than 4/10 STG Duration 4 weeks Shelter Goal (LTG) pt will be able to normalize his gait to complete >10k steps daily without discomfort LTG Duration 8 weeks FAAM Impairment pt scores on 48 FAAM (ADLs) Short Term Goal (STG) pt will score >60 on FAAM ( ADLs) to show improved ankle mobility and strength for ADLs STG Duration 8 weeks LEFS Impairment pt scores 51 on LEFS Short Term Goal (STG) pt will be able to score >60 on LEFS to show improved LE strength and mobility STG Duration 4 weeks Sr. Strategic Sourcing Manager Goal (LTG) pt will be able to score > 66 on LEFS to show improved LE strength and mobility LTG Duration 8 weeks Assessment Summary Assessment pt reports he has no more heel pain at night, but its very painful to walk in the morning . His Ac/Dc Rewinder recommended him to attempt cortisone shot if needed. I provided him KT tape at heel, 1/2 inch heel lift and modification on his HEP, with recommendation of decreasing his steps count down to 5k/daily. Pt agreed to wait for a few weeks for rehab to decide whether he needs cortisone shot or not. Will f/u closely. Physical Therapy Plan Frequency and Duration Frequency of Treatment 1-2x/wk Duration of Treatment 8 weeks Plan of Care Start Date 11/01/20 Plan of Care End Date 12/31/20 Therapeutic Interventions Therapeutic Interventions Aquatic Therapy,Balance Training,Gait Training,Home Exercise Program,Joint Mobilizations,Manual Therapy, Neuromuscular Re-education, Orthotic/Prosthetic Management ,Patient/Caregiver Education, Self-Care/Home Management,Soft Tissue Mobilization,Taping, Therapeutic Activities, Therapeutic Exercises Modalities Cold Pack/Ice Massage,Electric Stimulation,Hot Packs, Traction- Mechanical, Ultrasound Next Visit Focus/Plan Next Note Type Treatment Note Next Visit Plan progress calf mobility/ strengthening, hip stability, encourage supportive footwear
--- NOTE | 2020-12-21 12:14 | PT.OTN ---
Current Diagnoses Achilles tendinitis, left leg (12/21/20) Physical Therapy Treatment Note PT-OP-A Visit Information Start: 10/31/20 16:14 Freq: Status: Active Protocol: Document 12/21/20 11:16 (Rec: 12/21/20 12:13 [id number]) Out-Patient Physical Therapy Visit Information Visit Information Visit Type Treatment Note Visit Start Time 11:16 Visit Stop Time 12:10 Total Visit Minutes 54 Visit Number 08/11 PT-OP-B Current Condition Start: 10/31/20 16:14 Freq: Status: Active Protocol: Document 11/01/20 12:08 HH (Rec: 11/01/20 12:31 [email or web address]) Current Condition History of Current Condition Onset Date 2 months ago Current Complaints L heel and foot pain, difficulty in walking History of Current Condition Zack is a 80 yo male here for his new onset of L heel and foot pain since 2 months ago. He stated he felt a pop sensation one day and his heel started hurting which limits his walking ability. He is feeling bruise when he walks and taking the first step in the morning is painful. He also has pain at the plantar fascia insertion with WB activities. He is still getting 10k steps a day but he has been limping. Pt went to see PCP Dr. López and he rule out PAD. Prior Treatments and Tests PT for his knee 2 years ago with good result. PT-OP-C Subjective Start: 10/31/20 16:14 Freq: Status: Active Protocol: Document 12/21/20 11:16 HH (Rec: 12/21/20 12:13 [id number]) OP-PT Subjective Patient Comments Patient Comments Nicole been doing better but i still walk same amount of steps. The tape just came off a day. The pain is 50% less often when Im bearing weight on it. I have no problem sleeping now. Patient Reported Progress Improving PT-OP-D Balance Start: 10/31/20 16:14 Freq: Status: Active Protocol: Document 11/01/20 12:08 HH (Rec: 11/01/20 12:31 [email or web address]) Balance Tests Single Limb Standing Single Limb- Right 10 Single Limb- Left 2 PT-OP-F Manual Assessment Start: 10/31/20 16:14 Freq: Status: Active Protocol: Document 11/01/20 12:08 (Rec: 11/01/20 12:31 [email or web address]) Manual Assessments Soft Tissue Assessment Soft Tissue Mobility Assessment significant toncity at medial gastro, pain to pressure at achilles insertion on L toncity at plantar fascia insertion PT-OP-G Mobility & Gait Start: 10/31/20 16:14 Freq: Status: Active Protocol: Document 11/01/20 12:08 HH (Rec: 11/01/20 12:31 [email or web address]) OP Gait Assessment Comments Gait Comments supinated L foot noted during stance phase, lack of DF during stance phase on L PT-OP-K Range of Motion Start: 10/31/20 16:14 Freq: Status: Active Protocol: Document 11/01/20 12:08 (Rec: 11/01/20 12:31 [email or web address]) Ankle and Foot Goniometric Range of Motion Ankle and Foot Right Active Testing Position Supine Dorsiflexion with Knee Flexed 20 Dorsiflexion with Knee Extended 14 Plantarflexion 45 Left Active Testing Position Supine Dorsiflexion with Knee Flexed 5 Dorsiflexion with Knee Extended 14 Plantarflexion 44 Comments mod pain with DF PT-OP-L Special Tests Start: 10/31/20 16:14 Freq: Status: Active Protocol: Document 11/01/20 12:08 (Rec: 11/01/20 12:31 [email or web address]) Special Tests Foot/Ankle Special Tests kraft test Test Results -ve calf raise Test Results will assess next time PT-OP-M Strength Start: 10/31/20 16:14 Freq: Status: Active Protocol: Document 11/01/20 12:08 (Rec: 11/01/20 12:31 [email or web address]) Ankle/Foot Strength Ankle and Foot Manual Muscle Testing Right Dorsiflexion (L4) 5 Normal Plantarflexion (S1) 5 Normal Left Dorsiflexion (L4) 4+ Good+ Plantarflexion (S1) 4- Good- PT-OP-Q Treatments Start: 10/31/20 16:14 Freq: Status: Active Protocol: Document 12/21/20 11:16 HH (Rec: 12/21/20 12:13 [id number]) Therapeutic Exercises Standing Exercises gastroc/soleus Side bilateral Reps/Minutes [id number] Comments on steps calf raise Standing Exercise Name on step Side bilateral Reps/Minutes 10 reps Comments for HEP Gait Training Gait Activity heel toe Comments educated pt to start walking with heel strike Manual Therapy Treatment Soft Tissue Mobilization calf Body Location achilles tendon and calf Mobilization Type Rolling,Sustained Pressure, Trigger Point Release Intensity/Depth Moderate Body Position Prone Joint Mobilizations calcaneus Direction lateral and medial glide Grade III Body Position Hooklying Reps/Duration 10min Taping L heel Type of Tape Kinesio Tape Comments 1 I strip from lower calf to mid foot PT-OP-T Assessment and Plan Start: 10/31/20 16:14 Freq: Status: Active Protocol: Document 12/21/20 11:16 (Rec: 12/21/20 12:13 [id number]) Physical Therapy Assessment Goals walk Impairment antalgic gait noted Short Term Goal (STG) goal met 12/21 pt has not more night pain. Able to walk 10K steps daily with 2-3/10 pain pt will be able to complete 5k steps daily with pain no more than 4/10 STG Duration 4 weeks Photographer Finish Goal (LTG) pt will be able to normalize his gait to complete >10k steps daily without discomfort LTG Duration 8 weeks FAAM Impairment pt scores on 48 FAAM (ADLs) Short Term Goal (STG) pt will score >60 on FAAM ( ADLs) to show improved ankle mobility and strength for ADLs STG Duration 8 weeks LEFS Impairment pt scores 51 on LEFS Short Term Goal (STG) pt will be able to score >60 on LEFS to show improved LE strength and mobility STG Duration 4 weeks Usp Goal (LTG) pt will be able to score > 66 on LEFS to show improved LE strength and mobility LTG Duration 8 weeks Assessment Summary Assessment pt reports improvements since last week. Pain is less frequent and he is still walking >10k steps a week. He decided to have a steroid injection from microfiche duplicator next week. I spent time educating him that is care home fix and he understood. Will start more strengthening ex from next visit. Pt will continously benefit 1 more month of skilled therapy to progressively increase his achilles tendon load. Physical Therapy Plan Frequency and Duration Frequency of Treatment 1-2x/wk Duration of Treatment 8 weeks Plan of Care Start Date 11/01/20 Plan of Care End Date 12/31/20 Therapeutic Interventions Therapeutic Interventions Aquatic Therapy,Balance Training,Gait Training,Home Exercise Program,Joint Mobilizations,Manual Therapy, Neuromuscular Re-education, Orthotic/Prosthetic Management ,Patient/Caregiver Education, Self-Care/Home Management,Soft Tissue Mobilization,Taping, Therapeutic Activities, Therapeutic Exercises Modalities Cold Pack/Ice Massage,Electric Stimulation,Hot Packs, Traction- Mechanical, Ultrasound Next Visit Focus/Plan Next Note Type Treatment Note Next Visit Plan progress calf mobility/ strengthening, hip stability, encourage supportive footwear
--- NOTE | 2020-12-28 12:02 | PT.OTN ---
Current Diagnoses Achilles tendinitis, left leg (12/28/20) Physical Therapy Treatment Note PT-OP-A Visit Information Start: 10/31/20 16:14 Freq: Status: Active Protocol: Document 12/28/20 11:19 (Rec: 12/28/20 12:01 [id number]) Out-Patient Physical Therapy Visit Information Visit Information Visit Type Progress Note Visit Start Time 11:18 Visit Stop Time 12:00 Total Visit Minutes 42 Visit Number 09/10 Number of HIGH SCHOOL MUSIC TEACHER Visits 0 PT-OP-B Current Condition Start: 10/31/20 16:14 Freq: Status: Active Protocol: Document 11/01/20 12:08 HH (Rec: 11/01/20 12:31 [email or web address]) Current Condition History of Current Condition Onset Date 2 months ago Current Complaints L heel and foot pain, difficulty in walking History of Current Condition Zack is a 80 yo male here for his new onset of L heel and foot pain since 2 months ago. He stated he felt a pop sensation one day and his heel started hurting which limits his walking ability. He is feeling bruise when he walks and taking the first step in the morning is painful. He also has pain at the plantar fascia insertion with WB activities. He is still getting 10k steps a day but he has been limping. Pt went to see PCP Dr. López and he rule out PAD. Prior Treatments and Tests PT for his knee 2 years ago with good result. PT-OP-C Subjective Start: 10/31/20 16:14 Freq: Status: Active Protocol: Document 12/28/20 11:19 HH (Rec: 12/28/20 12:01 [id number]) OP-PT Subjective Patient Comments Patient Comments I had the cortisone shot couple days ago and it seems like it hasnt done much yet. Im still doing around 10k steps. My morning routine seems to doesnt bother me as much. Patient Reported Progress Improving PT-OP-D Balance Start: 10/31/20 16:14 Freq: Status: Active Protocol: Document 11/01/20 12:08 HH (Rec: 11/01/20 12:31 [email or web address]) Balance Tests Single Limb Standing Single Limb- Right 10 Single Limb- Left 2 PT-OP-F Manual Assessment Start: 10/31/20 16:14 Freq: Status: Active Protocol: Document 11/01/20 12:08 HH (Rec: 11/01/20 12:31 [email or web address]) Manual Assessments Soft Tissue Assessment Soft Tissue Mobility Assessment significant toncity at medial gastro, pain to pressure at achilles insertion on L toncity at plantar fascia insertion PT-OP-G Mobility & Gait Start: 10/31/20 16:14 Freq: Status: Active Protocol: Document 11/01/20 12:08 HH (Rec: 11/01/20 12:31 [email or web address]) OP Gait Assessment Comments Gait Comments supinated L foot noted during stance phase, lack of DF during stance phase on L PT-OP-K Range of Motion Start: 10/31/20 16:14 Freq: Status: Active Protocol: Document 12/28/20 11:19 HH (Rec: 12/28/20 12:02 [id number]) Ankle and Foot Goniometric Range of Motion Ankle and Foot Left Active Testing Position Supine Dorsiflexion with Knee Flexed 16 Dorsiflexion with Knee Extended 9 Plantarflexion 44 Comments no pain with DF PT-OP-L Special Tests Start: 10/31/20 16:14 Freq: Status: Active Protocol: Document 11/01/20 12:08 (Rec: 11/01/20 12:31 [email or web address]) Special Tests Foot/Ankle Special Tests kraft test Test Results -ve calf raise Test Results will assess next time PT-OP-M Strength Start: 10/31/20 16:14 Freq: Status: Active Protocol: Document 11/01/20 12:08 (Rec: 11/01/20 12:31 [email or web address]) Ankle/Foot Strength Ankle and Foot Manual Muscle Testing Right Dorsiflexion (L4) 5 Normal Plantarflexion (S1) 5 Normal Left Dorsiflexion (L4) 4+ Good+ Plantarflexion (S1) 4- Good- PT-OP-Q Treatments Start: 10/31/20 16:14 Freq: Status: Active Protocol: Document 12/28/20 11:19 HH (Rec: 12/28/20 12:01 [id number]) Cardio Equipment Bicycle (Upright) Duration (Minutes) 8 Resistance 5 Other no discomfort Therapeutic Exercises Standing Exercises gastroc/soleus Side bilateral Reps/Minutes [id number] Comments on steps calf raise Standing Exercise Name tall plank position with arms on table, body incline 45 degrees Side bilateral Reps/Minutes 10 reps Comments single leg calf raise ,for HEP Gait Training Gait Activity heel toe Comments educated pt to start walking with heel strike. Improved performance noted. Manual Therapy Treatment Joint Mobilizations calcaneus Direction lateral and medial glide Grade III Body Position Hooklying Reps/Duration 10min PT-OP-T Assessment and Plan Start: 10/31/20 16:14 Freq: Status: Active Protocol: Document 12/28/20 11:19 (Rec: 12/28/20 12:01 [id number]) Physical Therapy Assessment Goals gait mechanics Impairment pt's gait with increased WB on R, dec heel strike on L Short Term Goal (STG) pt will be able to complete SL calf raise in upright position >10 times. STG Duration 4weeks Chcf Goal (LTG) pt will demonstrate heel strike without trunk lean to R while walking. LTG Duration 6 weeks walk Impairment antalgic gait noted Short Term Goal (STG) goal met 12/21 pt has not more night pain. Able to walk 10K steps daily with 2-3/10 pain pt will be able to complete 5k steps daily with pain no more than 4/10 STG Duration 4 weeks Cost Control Supervisor Goal (LTG) 11/5 goal patially met pt is able to normalize his gait to maintain >10k steps daily without increase discomfort LTG Duration 8 weeks FAAM Impairment pt scores on 48 FAAM (ADLs) Short Term Goal (STG) pt will score >60 on FAAM ( ADLs) to show improved ankle mobility and strength for ADLs STG Duration 8 weeks LEFS Impairment pt scores 51 on LEFS Short Term Goal (STG) pt will be able to score >60 on LEFS to show improved LE strength and mobility STG Duration 4 weeks Chcf Goal (LTG) pt will be able to score > 66 on LEFS to show improved LE strength and mobility LTG Duration 8 weeks Assessment Summary Assessment pt had a cortisone shot a few days ago without significant improvements. However, he reports sleeping and walking in the morning are not irritating anymore. He is still walking 10k steps daily which is possibly impeding his rehab progress. I have him started SL calf raise in incline position 10times x3 sets daily. He will continue to benefit from skilled therapy to improve his gait mechanics and calf strength. Physical Therapy Plan Frequency and Duration Frequency of Treatment 1-2x/wk Duration of Treatment 6 weeks Plan of Care Start Date 12/28/20 Plan of Care End Date 02/11/21 Therapeutic Interventions Therapeutic Interventions Aquatic Therapy,Balance Training,Gait Training,Home Exercise Program,Joint Mobilizations,Manual Therapy, Neuromuscular Re-education, Orthotic/Prosthetic Management ,Patient/Caregiver Education, Self-Care/Home Management,Soft Tissue Mobilization,Taping, Therapeutic Activities, Therapeutic Exercises Modalities Cold Pack/Ice Massage,Electric Stimulation,Hot Packs, Traction- Mechanical, Ultrasound Next Visit Focus/Plan Next Note Type Treatment Note Next Visit Plan progress calf mobility/ strengthening, hip stability, encourage supportive footwear
--- NOTE | 2020-12-28 12:03 | PT.OPPOC ---
Physical, Occupational & Speech Therapy At [facility] Current Diagnoses Achilles tendinitis, left leg (12/28/20) Visit Care Team Role Provider Type Zack López MD Attending Provider Physician Primary Care Provider Referring Provider Specialty: Internal Medicine Address: [address] [place] [address], [address], [address] Email: [email or web address] Plan Of Care PT-OP-T Assessment and Plan Start: 10/31/20 16:14 Freq: Status: Active Protocol: Document 12/28/20 11:19 (Rec: 12/28/20 12:01 [id number]) Physical Therapy Assessment Goals gait mechanics Impairment pt's gait with increased WB on R, dec heel strike on L Short Term Goal (STG) pt will be able to complete SL calf raise in upright position >10 times. STG Duration 4weeks Bottom Sprayer Goal (LTG) pt will demonstrate heel strike without trunk lean to R while walking. LTG Duration 6 weeks walk Impairment antalgic gait noted Short Term Goal (STG) goal met 12/21 pt has not more night pain. Able to walk 10K steps daily with 2-3/10 pain pt will be able to complete 5k steps daily with pain no more than 4/10 STG Duration 4 weeks Bottom Sprayer Goal (LTG) 11/5 goal patially met pt is able to normalize his gait to maintain >10k steps daily without increase discomfort LTG Duration 8 weeks FAAM Impairment pt scores on 48 FAAM (ADLs) Short Term Goal (STG) pt will score >60 on FAAM ( ADLs) to show improved ankle mobility and strength for ADLs STG Duration 8 weeks LEFS Impairment pt scores 51 on LEFS Short Term Goal (STG) pt will be able to score >60 on LEFS to show improved LE strength and mobility STG Duration 4 weeks Half-Way Goal (LTG) pt will be able to score > 66 on LEFS to show improved LE strength and mobility LTG Duration 8 weeks Assessment Summary Assessment pt had a cortisone shot a few days ago without significant improvements. However, he reports sleeping and walking in the morning are not irritating anymore. He is still walking 10k steps daily which is possibly impeding his rehab progress. I have him started SL calf raise in incline position 10times x3 sets daily. He will continue to benefit from skilled therapy to improve his gait mechanics and calf strength. Physical Therapy Plan Frequency and Duration Frequency of Treatment 1-2x/wk Duration of Treatment 6 weeks Plan of Care Start Date 12/28/20 Plan of Care End Date 02/11/21 Therapeutic Interventions Therapeutic Interventions Aquatic Therapy,Balance Training,Gait Training,Home Exercise Program,Joint Mobilizations,Manual Therapy, Neuromuscular Re-education, Orthotic/Prosthetic Management ,Patient/Caregiver Education, Self-Care/Home Management,Soft Tissue Mobilization,Taping, Therapeutic Activities, Therapeutic Exercises Modalities Cold Pack/Ice Massage,Electric Stimulation,Hot Packs, Traction- Mechanical, Ultrasound Next Visit Focus/Plan Next Note Type Treatment Note Next Visit Plan progress calf mobility/ strengthening, hip stability, encourage supportive footwear Plan of Care Dates Plan of Care Start Date 12/28/20 Plan of Care End Date 02/11/21 Electronically Signed by: Doug Ayers, PT 12/28/20 [id number] Please Sign and Return: I have reviewed this Plan of Care and certify that the skilled therapy services above are required to meet the patient?s needs. Physician Signature Date Printed Name and Credentials Clinical Instructor Signature Printed Name and Credentials
--- NOTE | 2021-01-11 12:12 | PT.OTN ---
Current Diagnoses Achilles tendinitis, left leg (01/11/21) Physical Therapy Treatment Note PT-OP-A Visit Information Start: 10/31/20 16:14 Freq: Status: Active Protocol: Document 01/11/21 11:16 (Rec: 01/11/21 12:10 [id number]) Out-Patient Physical Therapy Visit Information Visit Information Visit Type Treatment Note Visit Start Time 11:16 Visit Stop Time 12:00 Total Visit Minutes 44 Visit Number 10/11 Number of SUPERVISOR MAINTENANCE Visits 0 PT-OP-B Current Condition Start: 10/31/20 16:14 Freq: Status: Active Protocol: Document 11/01/20 12:08 HH (Rec: 11/01/20 12:31 [email or web address]) Current Condition History of Current Condition Onset Date 2 months ago Current Complaints L heel and foot pain, difficulty in walking History of Current Condition Zack is a 80 yo male here for his new onset of L heel and foot pain since 2 months ago. He stated he felt a pop sensation one day and his heel started hurting which limits his walking ability. He is feeling bruise when he walks and taking the first step in the morning is painful. He also has pain at the plantar fascia insertion with WB activities. He is still getting 10k steps a day but he has been limping. Pt went to see PCP Dr. López and he rule out PAD. Prior Treatments and Tests PT for his knee 2 years ago with good result. PT-OP-C Subjective Start: 10/31/20 16:14 Freq: Status: Active Protocol: Document 01/11/21 11:16 HH (Rec: 01/11/21 12:10 [id number]) OP-PT Subjective Patient Comments Patient Comments Im doing pretty good. 30% of time is 7/10 pain, 30% of time is 1-2/10, and then 30% is like between that. There's no pain at night , and in the morning. Patient Reported Progress Improving PT-OP-D Balance Start: 10/31/20 16:14 Freq: Status: Active Protocol: Document 11/01/20 12:08 HH (Rec: 11/01/20 12:31 [email or web address]) Balance Tests Single Limb Standing Single Limb- Right 10 Single Limb- Left 2 PT-OP-F Manual Assessment Start: 09/08/21 16:14 Freq: Status: Active Protocol: Document 11/01/20 12:08 HH (Rec: 11/01/20 12:31 [email or web address]) Manual Assessments Soft Tissue Assessment Soft Tissue Mobility Assessment significant toncity at medial gastro, pain to pressure at achilles insertion on L toncity at plantar fascia insertion PT-OP-G Mobility & Gait Start: 10/31/20 16:14 Freq: Status: Active Protocol: Document 11/01/20 12:08 HH (Rec: 11/01/20 12:31 [email or web address]) OP Gait Assessment Comments Gait Comments supinated L foot noted during stance phase, lack of DF during stance phase on L PT-OP-K Range of Motion Start: 10/31/20 16:14 Freq: Status: Active Protocol: Document 12/28/20 11:19 HH (Rec: 12/28/20 12:02 [id number]) Ankle and Foot Goniometric Range of Motion Ankle and Foot Left Active Testing Position Supine Dorsiflexion with Knee Flexed 16 Dorsiflexion with Knee Extended 9 Plantarflexion 44 Comments no pain with DF PT-OP-L Special Tests Start: 10/31/20 16:14 Freq: Status: Active Protocol: Document 11/01/20 12:08 HH (Rec: 11/01/20 12:31 [email or web address]) Special Tests Foot/Ankle Special Tests kraft test Test Results -ve calf raise Test Results will assess next time PT-OP-M Strength Start: 10/31/20 16:14 Freq: Status: Active Protocol: Document 11/01/20 12:08 HH (Rec: 11/01/20 12:31 [email or web address]) Ankle/Foot Strength Ankle and Foot Manual Muscle Testing Right Dorsiflexion (L4) 5 Normal Plantarflexion (S1) 5 Normal Left Dorsiflexion (L4) 4+ Good+ Plantarflexion (S1) 4- Good- PT-OP-Q Treatments Start: 10/31/20 16:14 Freq: Status: Active Protocol: Document 01/11/21 11:16 HH (Rec: 01/11/21 12:10 [id number]) Cardio Equipment Bicycle (Upright) Duration (Minutes) 8 Resistance 5 Other no discomfort Therapeutic Exercises Standing Exercises ankle rocking Equipment Used ankle balance board Reps/Minutes 20 x2 Comments DF and PF gastroc/soleus Side bilateral Reps/Minutes [id number] Comments on steps calf raise Standing Exercise Name SL on stair Side bilateral Reps/Minutes 10 repsx2 Comments single leg calf raise ,for HEP Gait Training Gait Activity heel toe Surface ground level Comments focus on stance phase on LLE only. start with heel strike then push off with toes. 20times x [address] then walk with shoes and focus on heel strikes PT-OP-T Assessment and Plan Start: 10/31/20 16:14 Freq: Status: Active Protocol: Document 01/11/21 11:16 (Rec: 01/11/21 12:10 HH [id number]) Physical Therapy Assessment Goals gait mechanics Impairment pt's gait with increased WB on R, dec heel strike on L Short Term Goal (STG) pt will be able to complete SL calf raise in upright position >10 times. STG Duration 4weeks Cracker Sprayer Goal (LTG) pt will demonstrate heel strike without trunk lean to R while walking. LTG Duration 6 weeks walk Impairment antalgic gait noted Short Term Goal (STG) goal met 12/21 pt has not more night pain. Able to walk 10K steps daily with 2-3/10 pain pt will be able to complete 5k steps daily with pain no more than 4/10 STG Duration 4 weeks Intermediate Goal (LTG) 12/28 goal patially met pt is able to normalize his gait to maintain >10k steps daily without increase discomfort LTG Duration 8 weeks FAAM Impairment pt scores on 48 FAAM (ADLs) Short Term Goal (STG) pt will score >60 on FAAM ( ADLs) to show improved ankle mobility and strength for ADLs STG Duration 8 weeks LEFS Impairment pt scores 51 on LEFS Short Term Goal (STG) pt will be able to score >60 on LEFS to show improved LE strength and mobility STG Duration 4 weeks Intermediate Goal (LTG) pt will be able to score > 66 on LEFS to show improved LE strength and mobility LTG Duration 8 weeks Assessment Summary Assessment pt stated he is getting better without much pain in the morning and night time. Spent time focusing on gait training today for heel strike and toe push off. Expect pt to DC next visit. Physical Therapy Plan Frequency and Duration Frequency of Treatment 1-2x/wk Duration of Treatment 6 weeks Plan of Care Start Date 12/28/20 Plan of Care End Date 02/11/21 Therapeutic Interventions Therapeutic Interventions Aquatic Therapy,Balance Training,Gait Training,Home Exercise Program,Joint Mobilizations,Manual Therapy, Neuromuscular Re-education, Orthotic/Prosthetic Management ,Patient/Caregiver Education, Self-Care/Home Management,Soft Tissue Mobilization,Taping, Therapeutic Activities, Therapeutic Exercises Modalities Cold Pack/Ice Massage,Electric Stimulation,Hot Packs, Traction- Mechanical, Ultrasound Next Visit Focus/Plan Next Note Type Treatment Note Next Visit Plan progress calf mobility/ strengthening, hip stability, encourage supportive footwear
--- NOTE | 2021-01-29 12:11 | PT.OTN ---
Current Diagnoses Achilles tendinitis, left leg (01/29/21) Physical Therapy Treatment Note PT-OP-A Visit Information Start: 10/31/20 16:14 Freq: Status: Active Protocol: Document 01/29/21 11:28 HH (Rec: 01/29/21 12:11 [id number]) Out-Patient Physical Therapy Visit Information Visit Information Visit Type Discharge Summary Visit Start Time 11:18 Visit Stop Time 12:00 Total Visit Minutes 42 Visit Number 11/11 Number of COUNTY ATTORNEY Visits 0 PT-OP-B Current Condition Start: 10/31/20 16:14 Freq: Status: Active Protocol: Document 11/01/20 12:08 HH (Rec: 11/01/20 12:31 [email or web address]) Current Condition History of Current Condition Onset Date 2 months ago Current Complaints L heel and foot pain, difficulty in walking History of Current Condition Zack is a 80 yo male here for his new onset of L heel and foot pain since 2 months ago. He stated he felt a pop sensation one day and his heel started hurting which limits his walking ability. He is feeling bruise when he walks and taking the first step in the morning is painful. He also has pain at the plantar fascia insertion with WB activities. He is still getting 10k steps a day but he has been limping. Pt went to see PCP Dr. López and he rule out PAD. Prior Treatments and Tests PT for his knee 2 years ago with good result. PT-OP-C Subjective Start: 10/31/20 16:14 Freq: Status: Active Protocol: Document 01/29/21 11:28 HH (Rec: 01/29/21 12:11 [id number]) OP-PT Subjective Patient Comments Patient Comments My foot doesnt hurt in the morning. 70$ of the time is tolerable now. 30 % of the time can be painful but doesnt know when it happens. Patient Reported Progress Improving PT-OP-D Balance Start: 10/31/20 16:14 Freq: Status: Active Protocol: Document 11/01/20 12:08 HH (Rec: 11/01/20 12:31 [email or web address]) Balance Tests Single Limb Standing Single Limb- Right 10 Single Limb- Left 2 PT-OP-F Manual Assessment Start: 10/31/20 16:14 Freq: Status: Active Protocol: Document 11/01/20 12:08 HH (Rec: 11/01/20 12:31 [email or web address]) Manual Assessments Soft Tissue Assessment Soft Tissue Mobility Assessment significant toncity at medial gastro, pain to pressure at achilles insertion on L toncity at plantar fascia insertion PT-OP-G Mobility & Gait Start: 10/31/20 16:14 Freq: Status: Active Protocol: Document 11/01/20 12:08 HH (Rec: 11/01/20 12:31 [email or web address]) OP Gait Assessment Comments Gait Comments supinated L foot noted during stance phase, lack of DF during stance phase on L PT-OP-K Range of Motion Start: 10/31/20 16:14 Freq: Status: Active Protocol: Document 12/28/20 11:19 HH (Rec: 12/28/20 12:02 [id number]) Ankle and Foot Goniometric Range of Motion Ankle and Foot Left Active Testing Position Supine Dorsiflexion with Knee Flexed 16 Dorsiflexion with Knee Extended 9 Plantarflexion 44 Comments no pain with DF PT-OP-L Special Tests Start: 10/31/20 16:14 Freq: Status: Active Protocol: Document 11/01/20 12:08 HH (Rec: 11/01/20 12:31 [email or web address]) Special Tests Foot/Ankle Special Tests kraft test Test Results -ve calf raise Test Results will assess next time PT-OP-M Strength Start: 10/31/20 16:14 Freq: Status: Active Protocol: Document 11/01/20 12:08 HH (Rec: 11/01/20 12:31 [email or web address]) Ankle/Foot Strength Ankle and Foot Manual Muscle Testing Right Dorsiflexion (L4) 5 Normal Plantarflexion (S1) 5 Normal Left Dorsiflexion (L4) 4+ Good+ Plantarflexion (S1) 4- Good- PT-OP-Q Treatments Start: 10/31/20 16:14 Freq: Status: Active Protocol: Document 01/29/21 11:28 HH (Rec: 01/29/21 12:11 [id number]) Cardio Equipment Bicycle (Upright) Duration (Minutes) 8 Resistance 5 Other no discomfort Therapeutic Exercises Standing Exercises big toe extension and flexion stretch Side bilateral Reps/Minutes 20 s x5 Comments for HEP gastroc/soleus Side bilateral Reps/Minutes [id number] Comments on steps Gait Training Gait Activity heel toe Surface ground level Comments focus on stance phase on LLE only. start with heel strike then push off with toes. 20times x [address] then walk with shoes and focus on heel strikes PT-OP-T Assessment and Plan Start: 10/31/20 16:14 Freq: Status: Active Protocol: Document 01/29/21 11:28 HH (Rec: 01/29/21 12:11 HH [id number]) Physical Therapy Assessment Goals gait mechanics Impairment pt's gait with increased WB on R, dec heel strike on L Short Term Goal (STG) pt will be able to complete SL calf raise in upright position >10 times. STG Duration 4weeks Lineman Apprentice Goal (LTG) pt will demonstrate heel strike without trunk lean to R while walking. LTG Duration 6 weeks walk Impairment antalgic gait noted Short Term Goal (STG) goal met 12/21 pt has not more night pain. Able to walk 10K steps daily with 2-3/10 pain pt will be able to complete 5k steps daily with pain no more than 4/10 STG Duration 4 weeks Usp Goal (LTG) 11/ goal patially met pt is able to normalize his gait to maintain >10k steps daily without increase discomfort LTG Duration 8 weeks FAAM Impairment pt scores on 48 FAAM (ADLs) Short Term Goal (STG) pt will score >60 on FAAM ( ADLs) to show improved ankle mobility and strength for ADLs STG Duration 8 weeks LEFS Impairment pt scores 51 on LEFS Short Term Goal (STG) pt will be able to score >60 on LEFS to show improved LE strength and mobility STG Duration 4 weeks Usp Goal (LTG) pt will be able to score > 66 on LEFS to show improved LE strength and mobility LTG Duration 8 weeks Assessment Summary Assessment pt has been consistently improving but slowly possibly d/t his step counts >10-15k daily. However, he does have a good understanding of how to manage his pain and HEP. Added big toe extension flexion stretch. He agreed to be DC from PT today. Physical Therapy Plan Frequency and Duration Frequency of Treatment 1-2x/wk Duration of Treatment 6 weeks Plan of Care Start Date 12/28/20 Plan of Care End Date 02/11/21 Therapeutic Interventions Therapeutic Interventions Aquatic Therapy,Balance Training,Gait Training,Home Exercise Program,Joint Mobilizations,Manual Therapy, Neuromuscular Re-education, Orthotic/Prosthetic Management ,Patient/Caregiver Education, Self-Care/Home Management,Soft Tissue Mobilization,Taping, Therapeutic Activities, Therapeutic Exercises Modalities Cold Pack/Ice Massage,Electric Stimulation,Hot Packs, Traction- Mechanical, Ultrasound Next Visit Focus/Plan Next Note Type Treatment Note Next Visit Plan progress calf mobility/ strengthening, hip stability, encourage supportive footwear
== END 2021-03-26 08:57 ==
LOC: PHYS 11:15
PROVIDERS: PCP Student in an Organized Health Care Education/Training Program; Referring Provider Student in an Organized Health Care Education/Training Program; Visit Provider Student in an Organized Health Care Education/Training Program
DX: M76.62 Achilles tendinitis, left leg (principal)
CPT/HCPCS: 97110; 97116; 97140; 97161; 97760

== ENCOUNTER → 2021-04-02 10:37 | Outpatient (CLI) | payer MEDICARE, OTHER, SELFPAY ==
[2021-04-02 11:11] LABS: COVID19 -Nasal RAPID Negative (Negative)
== END ==
PROVIDERS: PCP Student in an Organized Health Care Education/Training Program; Visit Provider Surgery
DX: Z01.812 Encounter for preprocedural laboratory examination (principal); Z20.822 Contact with and (suspected) exposure to COVID-19
CPT/HCPCS: 87635; C9803

== ENCOUNTER 2021-04-03 08:20 | Day surgery (SDC) | payer MEDICARE, OTHER, SELFPAY ==
[2021-03-27 10:24] VITALS: BMI 24.6
[2021-04-03 08:42] VITALS: BP 169/72; PULSE 66; RESP 16; TEMP 36.8; O2SAT 100; BMI 24.6
[2021-04-03] MEDS: LACTATED RINGERS 1,000 ML 100 ML IV (08:58)
--- NOTE | 2021-04-03 09:09 | PM.PREOP ---
Pre-operative Note COVID-19 Criteria for continued procedure: Expected advancement of disease process Interval Note History & Physical reviewed/Exam performed by Physician: Yes Changes to H&P: No
[2021-04-03] MEDS: CEFAZOLIN 2 GM/20 ML SYRINGE IV (09:40)
--- NOTE | 2021-04-03 09:53 | SUR.OPER ---
Supine on padded OR bed, head on pillow, arms secured on padded arm boards at <90 degrees abduction, legs uncrossed, safety belt at thigh, tape over blanket over lower legs.
[2021-04-03] MEDS: BUPIVACAINE 0.25% (PF) VIAL 30 ML INJ (09:59)
[2021-04-03 10:50] VITALS: BP 130/68; PULSE 61; RESP 14; TEMP 37.1; O2SAT 96
[2021-04-03 10:55] VITALS: BP 130/59; PULSE 62; RESP 15; O2SAT 94
--- NOTE | 2021-04-03 10:55 | PM.OP.1 ---
Operative Date/Time/Diagnoses Date of procedure: 04/03/21 Time of procedure: 10:55 Pre-op diagnosis: right inguinal hernia Post-op diagnosis: same Procedure & Clinicians Procedure: Open right inguinal Same procedure as scheduled: Yes Indications: Symptomatic reducible inguinal hernia Surgeon: Reinaldo Yap Yes if Unassisted: Yes Anesthesia Type: General Operative Notes Findings: direct and indirect inguinal hernia Estimated Blood Loss (mL): 10 Procedure in detail: The patient was placed supine on the table and bilateral lower extremity compression devices were applied. Anesthesia was induced they were intubated with an LMA and received 2g of Ancef. A time-out was performed. They were prepped and draped in sterile fashion. The right external inguinal ring and the anterior superior iliac crest were identified and marked. 1 finger breath above the inguinal ligament the skin was infiltrated with 0.25% bupivacaine. The skin incision was made here and the subcutaneous tissues were divided with electrocautery exposing the external oblique aponeurosis which was then opened along the direction of its fibers. Using blunt dissection the internal oblique aporneurosis was from the external oblique upper leaflet to identify the iliohypogastric nerve. Using a kittner the cord was carefully dissected away from the inguinal canal adjacent to the pubic tubercle. The cord including the vas deferens, testicular bloody supply, ilioguinal and genital nerve were encircled with a Azam drain. A large direct floor defect was identified and it was reduced into the abdomen and the internal oblique aporneuorsis was approximated to the inguinal ligament with Ethibond suture to reapproximate the floor over a plug of mesh. The cremasteric fibers surrounding the cord were divided using electrocautery adjacent to the internal ring.. The vas deferens and the testicular vessels were preserved and protected. There was a small indirect hernia on the anterior medial aspect of the cord which was skeletonized away from the vas deferens and testicular blood supply. The indirect hernia was skeletonized back to the internal ring and reduced spontaneously into the abdomen. I selected a 7x 15 cm lightweight Pro Loop hernia mesh. The inferior medial aspect of the mesh was anchored to insertion of the rectus muscle to the pubic tubercle such that there was approximately 2 cm of tubercle overlap with Ethibond and then was run continuously along the inferior edge of the mesh to the shelving edge of the inguinal ligament. Interrupted 3 0 Vicryl suture was used to anchor the superior aspect of the mesh to the conjoined tendon in several places. The tails were then reapproximated loosely around the spermatic cord. The tails of the mesh were then tucked under the external oblique aponeurosis. The repair was checked for hemostasis. The wound was irrigated with sterile saline. The external oblique aponeurosis was reapproximated in a running fashion using 3 0 Vicryl. The subcutaneous tissues were reapproximated with 3 0 Vicryl skin closed with 4 0 Monocryl followed by the application of Dermabond. At the end of the operation I ensured that both testicles were within the scrotum. The sponge instrument count at the end operation was correct. The patient emerged from anesthesia was extubated and transferred to the postoperative care unit in stable condition. A total of 30 ml of of 0.25% bupivicaine was used to infiltrate the skin. Complications: none Post-operative Condition: stable Disposition: same day surgery
[2021-04-03 11:00] VITALS: BP 128/70; PULSE 66; RESP 15; O2SAT 96
[2021-04-03 11:05] VITALS: BP 141/65; PULSE 72; RESP 15; TEMP 36.9; O2SAT 94
[2021-04-03] MEDS: OXYCODONE/ACETAMINOPHEN 5/325 TABLET 1 TAB PO (11:26)
[2021-04-03 11:40] VITALS: BP 146/73; PULSE 65; RESP 16; TEMP 36.3; O2SAT 97
--- NOTE | 2021-04-05 13:42 | PM.HP.1 ---
History of Present Illness History of Present Illness Date Patient Seen: 04/05/21 Time Patient Seen: 13:42 Chief complaint: OPEN RIH REPAIR Narrative: 81-year-old male referred for to the surgical clinic for evaluation of a right inguinal hernia. Developed a bulge in the right groin over the past several months. It is uncomfortable worse with standing bending straining. Improves when he lays down or manually reduces it. No history of previous right inguinal hernia repair. Patient History Medical History Cataracts, bilateral Hearing loss Hypertension Measles Mumps Myocardial infarction (~1994) Pneumonia Surgical History Anesthesia History of tonsillectomy (~1950) Family & Social History Family History Father History of heart disease Mother History of heart disease Brother Cancer Grandfather History of heart disease Tobacco & Substance use: Tobacco type pipe Smoking Status Former smoker alcohol intake former Substance Use Type does not use Meds Home Medications and Allergies Home Medications Medication Instructions Recorded Confirmed Type Lactobacillus acidophilus 500 300 mmu cells PO DAILY #0 06/17/09 04/03/21 History million cell tablet atenolol 50 mg tablet 25 mg PO Q AM #0 06/17/09 04/03/21 History cholecalciferol (vitamin D3) 25 25 mcg PO DAILY #0 06/17/09 04/03/21 History mcg (1,000 unit) capsule (Vitamin D3) cranberry 500 mg capsule 500 mg PO DAILY #0 06/17/09 04/03/21 History teepisjpwuh-wbvsuubfv-jfs C-Mn 500 1 cap PO DAILY #0 06/17/09 04/03/21 History mg-400 mg capsule multivitamin 1 tab PO DAILY #0 06/17/09 04/03/21 History aspirin 81 mg chewable tablet 81 mg PO DAILY 01/15/20 04/03/21 History felodipine 5 mg tablet,extended 5 mg PO DAILY #90 tab 11/05/20 04/03/21 Rx release 24 hr ezetimibe 10 mg tablet 10 mg PO DAILY #90 tab 03/04/21 04/03/21 Rx coenzyme Q10 300 mg capsule 300 mg PO DAILY 03/27/21 04/03/21 History lorazepam 1 mg tablet 1 mg PO ONCE PRN #1 tab 03/28/21 04/03/21 Rx rosuvastatin 40 mg tablet 40 mg PO DAILY #90 tab 04/01/21 04/03/21 Rx tramadol 50 mg tablet 50 mg PO Q6H PRN #30 tab 04/03/21 Rx Allergies Allergy/AdvReac Type Severity Reaction Status Date / Time No Known Drug Allergies Allergy Verified 04/03/21 08:35 Exam Vital Signs (past 8 hours): Oxygen Delivery Method Room Air Narrative Exam Narrative: GENERAL: Elderly male in no apparent distress HEENT: No scleral icterus CV: Regular rate, no peripheral edema LUNGS: No increased work of breathing. Patient speaks in full sentences without oxygen support. ABDOMEN: Reducible right inguinal hernia NEURO: Nonfocal, normal strength throughout, normal gait. SKIN: Warm and dry Assessment & Plan Assessment and plan (1) Direct inguinal hernia of right side: Status: Acute Assessment & Plan narrative: 81-year-old male with a symptomatic reducible right inguinal hernia. -open right inguinal hernia repair I described to him the abdominal wall defect causing his inguinal hernia and I recommended to him that we proceed with an open repair with mesh. We discussed both operative and non operative management as well as both laparoscopic and open technique. I described the technical details of the operation to him and the typical postoperative recovery. I described to him the surgical risks associated with the operation including bleeding, infection, hernia recurrence, chronic pain, damage to the testicular structures. I described to him emergency return precautions for hernia incarceration. Will schedule. Time Spent With Patient Critical Care time: I spent a total of [] minutes of critical care time on this patient's care today; this time is exclusive of procedural time.
== END 2021-04-03 11:54 | disposition home or self-care (01) ==
PROVIDERS: PCP Student in an Organized Health Care Education/Training Program; Referring Provider Surgery; Visit Provider Surgery
PROC: (CPT 49505; principal; 2021-04-03 09:45)
DX: K40.90 Unilateral inguinal hernia, without obstruction or gangrene, not specified as recurrent (principal); I10 Essential (primary) hypertension; I25.2 Old myocardial infarction
CPT/HCPCS: 49505; J0690; J1100; J2405; J2704; J3010

== ENCOUNTER → 2022-08-18 15:33 | Outpatient (CLI) | payer MEDICARE, OTHER, SELFPAY ==
[2022-08-18 17:03] LABS: Hematocrit 40.3 % (41-53); Hemoglobin 13.7 g/dL (13.5-17.5); Mean Corpuscular HGB Conc 33.9 % (30-36); Mean Corpuscular Hemoglobin 30.9 PG (26-34); Mean Corpuscular Volume 91.2 fL (80-100); Platelet Count 209 X10^3/uL (150-400); Red Blood Cell Count 4.42 X10^6/uL (4.5-5.9); Red Cell Distribution Width 12.8 % (11.6-14.8); White Blood Cell Count 6.4 X10^3/uL (4.5-11.0)
[2022-08-18 17:49] LABS: Alanine Aminotransferase 39 IU/L (<50); Albumin 4.1 g/dL (3.5-5.0); Albumin Globulin Ratio 1.6 (1.0-2.8); Alkaline Phosphatase 69 U/L (38-126); Aspartate Aminotransferase 33 IU/L (17-59); BUN Creatinine Ratio 26.4 (6-22); Bilirubin Total 0.4 mg/dL (0.2-1.3); Blood Urea Nitrogen 19 mg/dL (9-20); Carbon Dioxide 29 mmol/L (22-32); Chloride 102 mmol/L (98-107); Cholesterol 93 mg/dL (140-199); Estimated Glomerular Filt Rate > 60 mL/min (>60); Globulin 2.6 g/dL (1.7-4.1); Glucose 98 mg/dL (80-110); HDL Cholesterol 34 mg/dL (40-60); HEMOLYSIS < 15 (0-50); LDL Cholesterol Calculated 37 mg/dL (<100); Potassium 4.3 mmol/L (3.4-5.1); Sodium 138 mmol/L (137-145); Total Protein 6.7 g/dL (6.3-8.2); Triglycerides 108 mg/dL (35-150)
[2022-08-18 18:14] LABS: TSH w/ Reflex to FT4 2.76 uIU/mL (0.47-4.68)
== END ==
PROVIDERS: PCP Internal Medicine; Referring Provider Internal Medicine; Visit Provider Internal Medicine
DX: E78.2 Mixed hyperlipidemia (principal); I10 Essential (primary) hypertension; N40.0 Benign prostatic hyperplasia without lower urinary tract symptoms; I25.10 Atherosclerotic heart disease of native coronary artery without angina pectoris
CPT/HCPCS: 36415; 80053; 80061; 84153; 84443; 85027

== ENCOUNTER → 2023-01-20 10:11 | Outpatient (CLI) | payer MEDICARE, OTHER, SELFPAY ==
[2023-01-21 13:38] LABS: PSA Free % 10.7 % (.); PSA, Total 6.1 ng/mL (0.0-4.0)
== END ==
PROVIDERS: PCP Internal Medicine; Referring Provider Internal Medicine; Visit Provider Internal Medicine
DX: R97.20 Elevated prostate specific antigen [PSA] (principal)
CPT/HCPCS: 36415; 84153; 84154

== ENCOUNTER → 2023-03-20 12:11 | Outpatient (CLI) | payer MEDICARE, OTHER, SELFPAY ==
--- NOTE | 2023-03-20 12:14 | DI.MRI.S_ITS ---
PROCEDURE: MR PELVIC PROSTATE PROTOCOL INDICATIONS: Elevated PSA, Prostate nodule TECHNIQUE: Coronal HASTE, axial T1 FSE with fat saturation, 3-plane nonbreath-hold T2 FSE. After the administration of contrast, dynamic axial, delayed axial and coronal VIBE or 2-D FLASH with fat saturation through the pelvis. Diffusion weighted imaging and ADC was performed. COMPARISON: None. FINDINGS: Image quality: Diffusion weighted and dynamic contrast enhanced images are diagnostic. Prostate: Gland size is 5.9 x 4.6 x 6.1 cm; ellipsoid gland volume is 167 mL. Lesion 1: Location: Right posterior peripheral zone at the apex, on axial series 5, image 16 and sagittal series 7, image 12. Size: At least 2.0 cm. T2W signal: Moderately hypointense DWI signal: Markedly hyperintense ADC signal: Markedly hypointense Enhancement: Yes Extracapsular extension: Not definite. It abuts the capsule at the apex without definite extension. PI-RADS score: 5 Lesion 2: Location: Left lateral peripheral zone at the mid gland level, on axial series 5, image 14 and diffusion series 26, image 14. Size: 0.8 cm. Measured on diffusion imaging T2W signal: Hypointense. DWI signal: Moderately hyperintense ADC signal: Markedly hypointense Enhancement: No Extracapsular extension: No PI-RADS score: 4 Elsewhere in the prostate peripheral zone there are several thin wedge-shaped striations from mid gland to apex suggesting prior inflammation. There is nodular hypertrophy of the transition zone and diffuse heterogeneity. Genitourinary system: Bladder wall thickness is normal given under distension. Distal ureters are non distended. Bowel and peritoneum: There is extensive diverticular disease through the visible loops of colon. Small bowel loops are of normal caliber. No free pelvic fluid. Nodes and vessels: No pelvic or inguinal adenopathy by size criteria. Iliac vessels are normal in caliber. Soft tissues: No inguinal hernias. Bones: Marrow demonstrates normal overall signal, without lesions to suggest metastases. IMPRESSION: 1. A greater than 2 cm PI-RADS 5 lesion in the right peripheral zone near the apex. 2. Small left peripheral zone PI-RADS 4 lesion at the mid gland level. 3. No pelvic adenopathy. Dictated by: Kelly Rodriguez M.D. on 03/20/2023 at 17:03 Approved by: Kelly Rodriguez M.D. on 03/20/2023 at 17:18
== END ==
LOC: MRI 12:12
PROVIDERS: PCP Internal Medicine; Referring Provider Specialist; Visit Provider Specialist
DX: N40.2 Nodular prostate without lower urinary tract symptoms (principal); R97.20 Elevated prostate specific antigen [PSA]; N42.9 Disorder of prostate, unspecified
CPT/HCPCS: 72197; A9579

== ENCOUNTER → 2023-03-30 13:19 | Outpatient (CLI) | payer MEDICARE, OTHER, SELFPAY ==
[2023-04-01 13:53] LABS: PSA Free % 11.3 % (.); PSA, Total 10.5 ng/mL (0.0-4.0)
== END ==
PROVIDERS: PCP Internal Medicine; Referring Provider Specialist; Visit Provider Specialist
DX: N40.2 Nodular prostate without lower urinary tract symptoms (principal); R97.20 Elevated prostate specific antigen [PSA]
CPT/HCPCS: 36415; 84153; 84154

== ENCOUNTER → 2023-06-11 10:10 | Outpatient (CLI) | payer MEDICARE, OTHER, SELFPAY ==
--- NOTE | 2023-06-11 10:12 | DI.RAD.S_ITS ---
PROCEDURE: XR DEXA AXIAL SKELETON INDICATIONS: Osteoporosis COMPARISON: Located Within [facility], CR, XR DEXA AXIAL SKELETON, 01/25/2020, 14:19. FINDINGS: Lumbar Spine: Bone mineral density 1.307 g/cm2, T score 2.4. Left Hip: Bone mineral density 0.934 g/cm2, T score -0.1. Left Femoral Neck: Bone mineral density 0.764 g/cm2, T score -0.8. Right Hip: Bone mineral density 0.891 g/cm2, T score -0.4. Right Femoral Neck: Bone mineral density 0.713 g/cm2, T score -1.2. Fracture Risk Calculation (when applicable): 10-year fracture risk of a major osteoporotic fracture 6.8 % and of a hip fracture 2.7 %. (T score greater or equal to -1.0 to: NORMAL) (T score from -1.1 to -2.4: OSTEOPENIA) (T score less than or equal to -2.5: OSTEOPOROSIS) IMPRESSION: Right femoral neck osteopenia. Dictated by: Cornelio Butler M.D. on 06/12/2023 at 7:29 Approved by: Cornelio Butler M.D. on 06/12/2023 at 8:22
== END ==
LOC: RAD 10:11
PROVIDERS: PCP Internal Medicine; Referring Provider Specialist; Visit Provider Specialist
DX: M81.0 Age-related osteoporosis without current pathological fracture; Z79.811 Long term (current) use of aromatase inhibitors
CPT/HCPCS: 77080

== ENCOUNTER → 2023-07-30 10:35 | Outpatient (CLI) | payer MEDICARE, OTHER, SELFPAY ==
[2023-07-30 12:13] LABS: Prostate Specific Antigen 0.598 ng/mL (0.10-4.00)
== END ==
PROVIDERS: PCP Internal Medicine; Referring Provider Specialist; Visit Provider Specialist
DX: C61 Malignant neoplasm of prostate (principal); R97.20 Elevated prostate specific antigen [PSA]
CPT/HCPCS: 36415; 84153

== ENCOUNTER → 2023-10-27 14:55 | Outpatient (CLI) | payer MEDICARE, OTHER, SELFPAY ==
[2023-10-27 15:36] LABS: Hematocrit 38.3 % (41-53); Mean Corpuscular Hemoglobin 31.6 PG (26-34); Mean Corpuscular Volume 93.1 fL (80-100); Platelet Count 253 X10^3/uL (150-400); Red Blood Cell Count 4.11 X10^6/uL (4.5-5.9); Red Cell Distribution Width 13.6 % (11.6-14.8); White Blood Cell Count 6.3 X10^3/uL (4.5-11.0)
[2023-10-27 16:10] LABS: Alanine Aminotransferase 28 IU/L (<50); Albumin 4.4 g/dL (3.5-5.0); Albumin Globulin Ratio 1.8 (1.0-2.8); Alkaline Phosphatase 62 U/L (38-126); Aspartate Aminotransferase 35 IU/L (17-59); BUN Creatinine Ratio 27.1 (6-22); Bilirubin Total 0.4 mg/dL (0.2-1.3); Blood Urea Nitrogen 19 mg/dL (9-20); Calcium 9.5 mg/dL (8.4-10.2); Carbon Dioxide 24 mmol/L (22-32); Chloride 103 mmol/L (98-107); Cholesterol 106 mg/dL (140-199); Estimated Glomerular Filt Rate > 60 mL/min (>60); Globulin 2.4 g/dL (1.7-4.1); Glucose 98 mg/dL (80-110); HDL Cholesterol 44 mg/dL (40-60); HEMOLYSIS < 15 (0-50); LDL Cholesterol Calculated 30 mg/dL (<100); Potassium 4.8 mmol/L (3.4-5.1); Sodium 137 mmol/L (137-145); Total Protein 6.8 g/dL (6.3-8.2); Triglycerides 159 mg/dL (35-150)
[2023-10-27 16:14] LABS: Hemoglobin A1C% w Est Avg Glu 5.9 % (4.0-6.0)
[2023-10-27 16:43] LABS: Prostate Specific Antigen < 0.064 ng/mL (0.10-4.00)
== END ==
PROVIDERS: PCP Internal Medicine; Referring Provider Internal Medicine; Visit Provider Internal Medicine
DX: I25.10 Atherosclerotic heart disease of native coronary artery without angina pectoris (principal); R73.01 Impaired fasting glucose; C61 Malignant neoplasm of prostate; E78.2 Mixed hyperlipidemia
CPT/HCPCS: 36415; 80053; 80061; 83036; 84153; 85027

== ENCOUNTER → 2024-01-12 13:13 | Outpatient (CLI) | payer MEDICARE, OTHER, SELFPAY ==
[2024-01-12 14:35] LABS: Prostate Specific Antigen < 0.064 ng/mL (0.10-4.00)
== END ==
PROVIDERS: PCP Internal Medicine; Referring Provider Urology; Visit Provider Urology
DX: C61 Malignant neoplasm of prostate (principal); N40.0 Benign prostatic hyperplasia without lower urinary tract symptoms
CPT/HCPCS: 36415; 84153

== ENCOUNTER → 2024-06-13 12:26 | Outpatient (CLI) | payer MEDICARE, OTHER, SELFPAY ==
--- NOTE | 2024-06-13 12:28 | DI.RAD.S_ITS ---
PROCEDURE: XR KNEE RT 3V INDICATIONS: right knee pain TECHNIQUE: 3 views of the knee were acquired. COMPARISON: [facility], CR, XR KNEE RT 3V, 01/06/2019, 11:53. FINDINGS: Bones: Mild cortical irregularity noted at the lateral margin of the lateral tibial plateau may be indicative of fracture. No suspicious bony lesions. Moderate to severe medial and moderate lateral tibiofemoral and moderate to severe patellofemoral compartment narrowing with associated osteophytosis. Chondrocalcinosis noted. Soft tissues: No joint effusion. No suspicious soft tissue calcifications. IMPRESSION: Cortical irregularity at the lateral margin of the lateral tibial plateau, possibly indicative of subtle fracture. KL grade 3 tricompartmental osteoarthritis. Dictated by: Eliseo Kan M.D. on 06/14/2024 at 2:30 Approved by: Eliseo Kan M.D. on 06/14/2024 at 2:32
== END ==
PROVIDERS: PCP Internal Medicine; Referring Provider Internal Medicine; Visit Provider Internal Medicine
DX: M17.11 Unilateral primary osteoarthritis, right knee (principal)
CPT/HCPCS: 73562

== ENCOUNTER → 2024-07-19 16:34 | Outpatient (CLI) | payer MEDICARE, OTHER, SELFPAY ==
[2024-07-19 19:00] LABS: Prostate Specific Antigen < 0.064 ng/mL (0.10-4.00)
== END ==
PROVIDERS: PCP Internal Medicine; Referring Provider Urology; Visit Provider Urology
DX: C61 Malignant neoplasm of prostate (principal); N40.0 Benign prostatic hyperplasia without lower urinary tract symptoms
CPT/HCPCS: 36415; 84153

== ENCOUNTER → 2024-10-31 11:40 | Outpatient (CLI) | payer MEDICARE, OTHER, SELFPAY ==
[2024-10-31 12:07] LABS: Hematocrit 37.7 % (41-53); Hemoglobin 12.6 g/dL (13.5-17.5); Mean Corpuscular HGB Conc 33.4 % (30-36); Mean Corpuscular Hemoglobin 30.9 PG (26-34); Mean Corpuscular Volume 92.5 fL (80-100); Platelet Count 207 X10^3/uL (150-400)
[2024-10-31 12:37] LABS: Alanine Aminotransferase 23 IU/L (<50); Albumin 4.4 g/dL (3.5-5.0); Albumin Globulin Ratio 1.9 (1.0-2.8); Alkaline Phosphatase 89 U/L (38-126); Blood Urea Nitrogen 18 mg/dL (9-20); Calcium 9.7 mg/dL (8.4-10.2); Carbon Dioxide 25 mmol/L (22-32); Chloride 105 mmol/L (98-107); Cholesterol 97 mg/dL (140-199); Estimated Glomerular Filt Rate > 60 mL/min (>60); Globulin 2.3 g/dL (1.7-4.1); Glucose 101 mg/dL (70-99); HDL Cholesterol 42 mg/dL (40-60); HEMOLYSIS < 15 (0-50); Potassium 4.6 mmol/L (3.4-5.1); Sodium 138 mmol/L (137-145); Total Protein 6.7 g/dL (6.3-8.2); Triglycerides 131 mg/dL (35-150)
== END ==
PROVIDERS: PCP Internal Medicine; Referring Provider Internal Medicine; Visit Provider Internal Medicine
DX: I25.10 Atherosclerotic heart disease of native coronary artery without angina pectoris (principal); E78.2 Mixed hyperlipidemia; I10 Essential (primary) hypertension
CPT/HCPCS: 36415; 80053; 80061; 85027

== ENCOUNTER → 2024-11-23 11:30 | Outpatient (CLI) | payer MEDICARE, OTHER, SELFPAY ==
[2024-11-23 13:01] LABS: Add Manual Diff / Slide Review NO; Hematocrit 37.2 % (41-53); Hemoglobin 12.5 g/dL (13.5-17.5); Lymphocytes Absolute Auto 800 /uL (1100-4500); Mean Corpuscular HGB Conc 33.7 % (30-36); Mean Corpuscular Hemoglobin 30.8 PG (26-34); Mean Corpuscular Volume 91.2 fL (80-100); Platelet Count 203 X10^3/uL (150-400)
[2024-11-23 13:10] LABS: Reticulocyte Count, Percent 0.9 % (0.9-2.6)
[2024-11-23 13:19] LABS: HEMOLYSIS < 15 (0-50); Iron 71 ug/dL (49-181)
[2024-11-23 13:29] LABS: Percent Iron Saturation 25 % (20-50); Total Iron Binding Capacity 283 ug/dL (261-462); Transferrin 227 mg/dL (206-381)
[2024-11-23 13:50] LABS: Ferritin 127 ng/mL (18-464)
[2024-11-23 14:03] LABS: Vitamin B12 Reflex MMA if <400 446 pg/mL (239-931)
== END ==
PROVIDERS: PCP Internal Medicine; Referring Provider Internal Medicine; Visit Provider Internal Medicine
DX: E53.8 Deficiency of other specified B group vitamins (principal); D64.9 Anemia, unspecified
CPT/HCPCS: 82607; 82728; 83540; 83550; 85025; 85045

== ENCOUNTER → 2024-12-01 16:14 | Outpatient (CLI) | payer MEDICARE, OTHER, SELFPAY | PROVIDERS: PCP Internal Medicine; Referring Provider Internal Medicine; Visit Provider Internal Medicine | DX: D64.9 Anemia, unspecified (principal) | CPT/HCPCS: 82274 ==

== ENCOUNTER → 2025-01-16 11:24 | Outpatient (CLI) | payer MEDICARE, OTHER, SELFPAY ==
[2025-01-16 12:55] LABS: Prostate Specific Antigen < 0.064 ng/mL (0.10-4.00)
== END ==
PROVIDERS: PCP Internal Medicine; Referring Provider Urology; Visit Provider Urology
DX: C61 Malignant neoplasm of prostate (principal)
CPT/HCPCS: 36415; 84153